=== PATIENT | male | born 1965 | race Caucasian/White ===

== ENCOUNTER 2017-10-28 12:29 | Inpatient (IN) | payer MEDICARE, BC ==
--- NOTE | 2017-10-28 12:31 | EDM.PDOC ---
ED HPI GENERAL MEDICAL PROBLEM - General Chief Complaint: Lower Extremity Injury/Pain Stated Complaint: fell few days ago. LEG SWELLING/OPEN WOUND Time Seen by Provider: 10/28/17 12:31 Source of Information: Reports: Patient, RN, RN Notes Reviewed History Limitations: Reports: No Limitations - History of Present Illness INITIAL COMMENTS - FREE TEXT/NARRATIVE: Arrives from home by POV with c/o pain and swelling to the right leg. This morbidly obese and fell onto his right knee 5 days ago scraped the knee, had a large bruise, and some swelling. He treated the abrasion at home with Neosporin Ointment, and kept the leg elevated as much as possible for the swelling. He was able to remain ambulatory despite the injury, so he states he was not concerned about a bone being broken. Over the last couple of days the pt has become concerned because that swelling of the thigh has significantly increased and it feels tight now. The pain has also increased, but he states that he tolerates it without requiring pain medication. The abrasion has began weeping caterina and some pink fluid. Today the pt states the leg began to feel hot and he worried about developing an infection , so he came to the ER. He denies fever, chills, cough, shortness of breath, or chest pain. He is anticoagulated on warfarin. 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 Treatments Right Leg Pain Score (Numeric/FACES): 4 - Related Data Allergies Allergy/AdvReac Type Severity Reaction Status Date / Time azithromycin [From Zithromax] Allergy Other Verified 10/28/17 12:45 Home Meds: Home Meds Latanoprost 1 drop EYEBOTH BID 04/09/15 [History] Naproxen [Naprosyn] 500 mg PO ASDIRECTED PRN 04/09/15 [History] Omeprazole 20 mg PO BIDM 04/09/15 [History] Warfarin Sodium [Jantoven] 5 mg PO ASDIRECTED 04/09/15 [History] cycloSPORINE [Restasis] 1 drop EYEBOTH DAILY 04/09/15 [History] Acetaminophen [Tylenol] 650 mg PO Q4H PRN #0 tablet 04/15/15 [Rx] Levofloxacin [Levaquin] 500 mg PO Q24H #10 tablet 04/15/15 [Rx] Metoprolol Succinate [Toprol XL] 1 tab PO DAILY 10/28/17 [History] Vit A/C/E AC/Znox/Cupric Oxide [Eye Vitamin-Minerals Tablet] 1 tab PO DAILY [History] Past Medical History Other HEENT History: dry eyes too - Past Surgical History Other Musculoskeletal Surgeries/Procedures:: right leg skin graft Social & Family History - Tobacco Use Smoking Status *Q: Never Smoker Years of Tobacco use: 30 Second Hand Smoke Exposure: Yes - Alcohol Use Days Per Week of Alcohol Use: 0 - Recreational Drug Use Recreational Drug Use: No Review of Systems - Review of Systems Review Of Systems: ROS reveals no pertinent complaints other than HPI. ED EXAM, GENERAL - Physical Exam Exam: See Below Exam Limited By: No Limitations General Appearance: Alert, No Apparent Distress, Obese Head: Atraumatic, Normocephalic Neck: Normal Inspection Respiratory/Chest: No Respiratory Distress, Lungs Clear, No Accessory Muscle Use , Decreased Breath Sounds Cardiovascular: Regular Rate, Rhythm GI/Abdominal: Normal Bowel Sounds, Soft, Non-Tender, Other (benign morbidly obese abdomen) (Male) Exam: Deferred Rectal (Males) Exam: Deferred Extremities: Joint Swelling (right knee), Leg Pain (Rt with the Rt anterior/ medial, and posterior distal 2/3's of the thigh with huge hematoma, tender to palp. w/increased warmth but no erythema), Limited Range of Motion (Rt knee), Increased Warmth (Rt lower extremity), Other (Chronic B/L pitting edema of lower extremities to knees, R>L) Neurological: Alert, Oriented, CN II-XII Intact, Normal Cognition, No Motor/ Sensory Deficits Psychiatric: Normal Affect, Normal Mood Course - Vital Signs Last Recorded V/S: Last Vital Signs Temp 36.7 C 10/28/17 12:57 Pulse 93 10/28/17 13:45 Resp 18 10/28/17 12:57 BP 134/54 L 10/28/17 12:57 Pulse Ox 96 10/28/17 12:57 - Orders/Labs/Meds Labs: Laboratory Tests 10/28/17 10/28/17 10/28/17 Range/Units 13:38 13:38 13:38 WBC 12.1 H (5.0-10.0) 10^3/uL RBC 3.38 L (4.6-6.2) 10^6/uL Hgb 9.4 L D (14.0-18.0) g/dL Hct 30.3 L (40.0-54.0) % MCV 89.6 (80-100) fL MCH 27.8 (27.0-34.0) pg MCHC 31.0 L (33.0-35.0) g/dL Plt Count 265 (150-450) 10^3/uL Neut % (Auto) 81.3 H (42.2-75.2) % Lymph % (Auto) 9.2 L (20.5-50.1) % [place] % (Auto) 8.3 H (2-8) % Eos % (Auto) 1.0 (1.0-3.0) % Baso % (Auto) 0.2 (0.0-1.0) % PT 41.0 H D (9.0-12.0) SEC INR 4.1 H (0.9-1.2) Sodium 139 (135-145) mmol/L Potassium 4.5 (3.6-5.0) mmol/L Chloride 103 (101-111) mmol/L Carbon Dioxide 28.0 (21.0-31.0) mmol/L Anion Gap 12.5 BUN 23 H (7-18) mg/dL Creatinine 0.9 (0.6-1.3) mg/dL Est Cr Clr Drug Dosing 92.89 mL/min Estimated GFR (MDRD) > 60 BUN/Creatinine Ratio 25.55 Glucose 107 H (74-105) mg/dL Calcium 8.8 (8.4-10.2) mg/dl Total Bilirubin 1.4 H (0.2-1.0) mg/dL AST 25 (10-42) IU/L ALT 17 (10-60) IU/L Alkaline Phosphatase 48 (42-121) IU/L C-Reactive Protein (0.0-1.3) mg/dL Total Protein 6.5 L (6.7-8.2) g/dl Albumin 3.5 (3.2-5.5) g/dl Globulin 3.0 Albumin/Globulin Ratio 1.17 10/28/17 Range/Units 13:38 WBC (5.0-10.0) 10^3/uL RBC (4.6-6.2) 10^6/uL Hgb (14.0-18.0) g/dL Hct (40.0-54.0) % MCV (80-100) fL MCH (27.0-34.0) pg MCHC (33.0-35.0) g/dL Plt Count (150-450) 10^3/uL Neut % (Auto) (42.2-75.2) % Lymph % (Auto) (20.5-50.1) % [place] % (Auto) (2-8) % Eos % (Auto) (1.0-3.0) % Baso % (Auto) (0.0-1.0) % PT (9.0-12.0) SEC INR (0.9-1.2) Sodium (135-145) mmol/L Potassium (3.6-5.0) mmol/L Chloride (101-111) mmol/L Carbon Dioxide (21.0-31.0) mmol/L Anion Gap BUN (7-18) mg/dL Creatinine (0.6-1.3) mg/dL Est Cr Clr Drug Dosing mL/min Estimated GFR (MDRD) BUN/Creatinine Ratio Glucose (74-105) mg/dL Calcium (8.4-10.2) mg/dl Total Bilirubin (0.2-1.0) mg/dL AST (10-42) IU/L ALT (10-60) IU/L Alkaline Phosphatase (42-121) IU/L C-Reactive Protein 4.2 H (0.0-1.3) mg/dL Total Protein (6.7-8.2) g/dl Albumin (3.2-5.5) g/dl Globulin Albumin/Globulin Ratio Departure - Departure Time of Disposition: 14:18 (admit to Dr. Begum) Disposition: Refer to Observation Condition: Fair Clinical Impression: Anemia due to acute blood loss, Supratherapeutic international normalized ratio (INR), Chronic anticoagulation, Morbid obesity with BMI of 60.0-69.9, adult Hematoma of right lower extremity Qualifiers: Encounter type: initial encounter Qualified Code(s): S80.11XA - Contusion of right lower leg, initial encounter Abrasion of right knee Qualifiers: Encounter type: initial encounter Qualified Code(s): S80.211A - Abrasion, right knee, initial encounter - Discharge Information Referrals: Kellie Potts PA-C [Primary Care Provider] - Forms: ED Department Discharge
[2017-10-28 14:04] LABS: CHLORIDE,CL 103 mmol/L (101-111); SODIUM,NA 139 mmol/L (135-145)
--- NOTE | 2017-10-28 15:46 | PCM.PRNOTE ---
- Free Text/Narrative Note: ED requested assistance with a difficult IV. Pt resting in room 5 with leg infection. Multiple attempts by ED RN unsuccessful. Discussed procedure with patient. Informed of risks and benefits. Pt appreciates my attempts and knows he is a difficult IV access. Stated it usually takes 7 attempts. Using appropriate technique, per protocol, attempted IV to left hand x2. Both unsuccessful. Pt on anticoagulant so bleeding at insertion site is more than typical. Covered with 2x2s and tape. Will form a hematoma. Third attempt made to right hand after appropriate cleaning and prep. a 22 gauge IV was inserted into the right hand. Not positional with good blood return and flushes well. Covered with tegaderm and tape. Pt pleased with the results especially since he is left handed.
[2017-10-28] MEDS ORDERED: Sodium Chloride 0.9% 10 ML Syringe FLUSH PRN (17:48)
[2017-10-28] MEDS ORDERED: Acetaminophen 325 MG Tab PO PRN (17:49)
[2017-10-28] MEDS: Bacitracin Oint 28.35 GM Tube TOP SCH (20:35)
[2017-10-28] MEDS: Latanoprost 0.005% Ophth Soln 2.5 ML Bottle EYERT SCH (20:36)
[2017-10-28] MEDS: Omeprazole 20 MG Cap.CR PO SCH (20:39)
[2017-10-28] MEDS: Amoxicillin/Clavulanate K 875-125 MG Tab PO SCH (20:39)
[2017-10-28] MEDS: Naproxen 500 MG Tab PO SCH (20:39)
[2017-10-28] MEDS: Lutein/Minerals/Vit A,C & E Tab PO SCH (20:43)
--- NOTE | 2017-10-28 22:19 | HP ---
HISTORY OF PRESENT ILLNESS: Mr. Francis is a 52-year-old male who was admitted for observation to monitor hematoma noted on the right side. One week ago, the patient fell inside his house when he tripped and landed on the right knee and right shoulder. Noticed hematoma on the right thigh with bluish discoloration and the area starting to drain in the skin overlying the right knee. Noticed some pain there, but denies any numbness or tingling. No back pain. No change in bowel habits. No change in urinary habits. No melena, hematochezia, or hematuria. The patient is on Coumadin for 8 years because of superficial thrombophlebitis. He said that last INR check was 1 month ago, it was around therapeutic range, but today, INR was 4.1, and with incidental finding of hemoglobin which is 9.6, we do not have a recent hemoglobin, the last one we had was probably in 2016. Denies any headache, dizziness, chest pain, or shortness of breath. No other signs of bleeding. PAST MEDICAL HISTORY: Morbid obesity, GERD, DVT, and cellulitis. PAST SURGICAL HISTORY: Noncontributory. FAMILY HISTORY: No family history of any clotting disorder. SOCIAL HISTORY: Lives on his own. Chews tobacco. MEDICATIONS: Reviewed. REVIEW OF SYSTEMS: Ten systems reviewed and were negative except for those mentioned above. PHYSICAL EXAMINATION: Vital Signs: Blood pressure 148/60, heart rate of 85 beats per minute, respirations 20 breaths per minute, and oxygen saturation 100%. General Appearance: Awake, in distress. Chest: Symmetric chest expansion. Lungs: Bilateral air entry. Cardiovascular System: Regular rate and rhythm. Abdomen: Soft. Normoactive bowel sounds. Extremities: Area of hematoma on the right thigh with an area that is draining on the skin overlying the right knee with some serosanguineous drainage. LABORATORY DATA: Hemoglobin 9.4, WBC 12.1, and platelets of 265. INR of 4.1. BMP; sodium 139, potassium 4.5, chloride 103, GFR more than 60, and creatinine 0.9. Total b ilirubin 1.4. CRP 4.2. Total protein 6.5. ASSESSMENT AND PLAN: Hematoma in the patient on anticoagulation with marked area. We will also have the girth of the thigh measured. The patient has taken his Coumadin this morning. We will repeat INR tomorrow. Also, repeat CBC with drop in the hemoglobin. The patient otherwise remained hemodynamically stable. He denies any signs of blood loss, such as headache or dizziness. Blood pressure is holding okay. Continue the rest of his medications. Given the mildly elevated CRP and with his break in the skin, we will start him on Augmentin twice a day for 1 week, and the patient is to monitor an intolerance from an antibiotic. We will have the area covered. CODE STATUS: Full code. Continue to follow the patient in medical-surgical bed. [facility] /[id number] ALBERT
[2017-10-28] MEDS: Sodium Chloride 0.9% 10 ML Syringe FLUSH PRN (22:46)
[2017-10-29] MEDS: Amoxicillin/Clavulanate K 875-125 MG Tab PO SCH (10:14)
[2017-10-29] MEDS: Omeprazole 20 MG Cap.CR PO SCH ×2 (10:15→17:18)
[2017-10-29] MEDS: cycloSPORINE Ophth Drops U/D Box of 30 EYEBOTH SCH (10:15)
[2017-10-29] MEDS: Naproxen 500 MG Tab PO SCH ×2 (10:15→20:57)
[2017-10-29] MEDS: Lutein/Minerals/Vit A,C & E Tab PO SCH ×2 (10:15→17:18)
[2017-10-29] MEDS: Bacitracin Oint 28.35 GM Tube TOP SCH ×2 (10:16→10:17)
[2017-10-29] MEDS: Metoprolol Succinate 50 MG Tab.ER PO SCH (12:24)
[2017-10-29] MEDS: Sodium Chloride 0.9% 10 ML Syringe FLUSH PRN (12:25)
[2017-10-29] MEDS: Piperacillin/Tazobactam 3.375 GM in Sodium Chloride 0.9% 100 ML IV SCH ×3 (12:25→23:59)
[2017-10-29] MEDS: Latanoprost 0.005% Ophth Soln 2.5 ML Bottle EYERT SCH (20:58)
[2017-10-30] MEDS: Piperacillin/Tazobactam 3.375 GM in Sodium Chloride 0.9% 100 ML IV SCH ×3 (06:13→17:40)
--- NOTE | 2017-10-30 08:06 | PN ---
DATE: 10/29/2017 SUBJECTIVE: Mr. Francis is a 52-year-old male, is admitted under initially observation because of right thigh hematoma and anemia. Today, his hemoglobin is staying at 9.1. The patient denies any symptoms such as dizziness or other signs of bleeding. We do not have baseline hemoglobin aside from what we had yesterday on admission. He denies any chest pain, shortness of breath. He is able to stand on his lower extremities with some pain. Areas on the right thigh still continue to be oozing and some blister have popped. PHYSICAL EXAMINATION: Vital Signs: Blood pressure 100/54, heart rate of 70 beats per minute, respirations 20 breaths per minute, oxygen saturation 99%, temperature 98.8. General Appearance: The patient is awake, in no distress. Chest: Symmetric chest expansion. Lungs: Bilateral air entry. CVS: Regular rate and rhythm. Abdomen: Soft. Normoactive bowel sounds. Extremities: Hematoma on the right thigh which has receded from the markings, however, seems like the area of oozing and weeping has become more indurated or more prominent. Some tenderness. ASSESSMENT/PLAN: We will put him as inpatient. We will change Augmentin to IV Zosyn. We will continue to monitor hemoglobin. We will get records from [facility] to check his previous hemoglobin. The patient otherwise has nothing significant in terms of hypovolemia. We will continue to dress the affected area daily with Xeroform. His INR is still supratherapeutic. Yesterday, he took it prior to being admitted and none given during the admission. Today it is 4.2. Continue holding warfarin, and we will recheck INR daily. Also iron studies were sent. We will follow the patient under medical- surgical bed. [facility] /[id number]
[2017-10-30] MEDS: cycloSPORINE Ophth Drops U/D Box of 30 EYEBOTH SCH (08:59)
[2017-10-30] MEDS: Omeprazole 20 MG Cap.CR PO SCH ×2 (08:59→17:40)
[2017-10-30] MEDS: Lutein/Minerals/Vit A,C & E Tab PO SCH ×2 (08:59→17:40)
[2017-10-30] MEDS: Naproxen 500 MG Tab PO SCH ×2 (08:59→20:51)
[2017-10-30] MEDS: Metoprolol Succinate 50 MG Tab.ER PO SCH (12:38)
[2017-10-30] MEDS: Latanoprost 0.005% Ophth Soln 2.5 ML Bottle EYERT SCH (20:51)
[2017-10-30] MEDS: Meropenem 500 MG in Sodium Chloride 0.9% 100 ML IV SCH (22:28)
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
[2017-10-31] MEDS: Meropenem 500 MG in Sodium Chloride 0.9% 100 ML IV SCH (05:32)
[2017-10-31] MEDS ORDERED: Heparin Sodium 5,000 Units/ML Vial SUBCUT ONE (06:00)
[2017-10-31 07:53] VITALS: BP 127/62
[2017-10-31] MEDS: Lutein/Minerals/Vit A,C & E Tab PO SCH (08:06)
[2017-10-31] MEDS: Naproxen 500 MG Tab PO SCH (08:06)
[2017-10-31] MEDS: cycloSPORINE Ophth Drops U/D Box of 30 EYEBOTH SCH (08:06)
[2017-10-31] MEDS: Omeprazole 20 MG Cap.CR PO SCH (08:06)
--- NOTE | 2017-12-08 07:21 | PN ---
DATE: 10/30/2017 HISTORY: David Francis is a 52-year-old male who fell at home on 10/22. He tripped and sustained an injury to the anterior medial aspect of the right lower leg, slightly below the knee in the pretibial area. He also sustained a contusion to the right lower back, where he also has a large bruise. He stated that 2 days after the fall, he started to notice increased redness and swelling across the right anteromedial knee. He presented to the emergency room on 10/29 because of increased pain and swelling. He initially treated the abrasion at home with Neosporin ointment, kept the leg elevated as much as possible, but the pain increased and the abrasion started to weep. He came to the emergency room, was evaluated, and was admitted. He is particularly concerned because many years ago, he had a previous injury to that leg, which went on to develop significant infection requiring extensive debridements. At the time of admission to the ER, he was found to be anemic with a hemoglobin of 9 and hematocrit of 29, and this was felt to be related to his blood losses due to the extensive hematoma. His INR was somewhat elevated at the time of admission at 4.1. Followup lab studies showed his iron levels to be low at 32. B12 and folate levels were within normal limits. It is possible that some of this anemia is [id number]. Today other labs included a sed rate which was 72 mm/h and a CRP which was elevated at 7.3. Repeat CBC today showed a white count of 10,000 with hemoglobin and hematocrit of 9 and 29 and normal platelets. We obtained a CT scan of the right lower extremity without contrast. There were no bony abnormalities seen. There was a lobulated dense fluid collection in the pretibial region, measuring approximately 13.9 x 11.6 x 4.7 cm. This represented a pretibial hematoma. A superimposed infected fluid collection could not be excluded. There was no soft tissue gas seen. We will continue the present management, which includes elevation of the leg. He continues on Zosyn 3.375 g IV every 6 hours, and meropenem was added today to broaden the coverage. He will receive 500 mg IV every 8 hours. He was also started on vancomycin 2 g IV every 8 hours. He is on subcu heparin for VTE prophylaxis as well. PHYSICAL EXAMINATION: Vital Signs: Blood pressure was 115/62, pulse 73, respiratory rate 20, oxygen saturation 97% on room air, temperature 98.3, and he had been afebrile since admission. HEENT: Unremarkable. ENT was clear. Chest: Showed clear but diminished breath sounds. Extremities: Examination of the leg showed a large area of bruising and swelling on the anterior lateral aspect of the right leg and knee. We have a number of issues. He has very poor venous access and may need to have a central line placed. This is further complicated by his super morbid obesity. We are not sure that this infection will not need debridement, and we do not have a surgical consult available. It may also be necessary to involve Infectious Disease in this process as well. Because of these issues, we called [facility] in [place] and spoke to the hospitalist on-call, Dr. Ybarra. He accepted Mr. Francis for transfer, and we will arrange to have him transferred by ground ambulance in the morning, and they will leave between 7:30 and 8:00. Mr. Francis was in agreement with this plan as he is understandably concerned given his previous history of infection with the need for extensive debridement of that leg. IMPRESSION: Status post fall, now with large hematoma involving the right leg. Cannot exclude the possibility of an underlying collection and infection. PLAN: For transfer in the morning. [facility] /[id number]
== END 2017-10-31 09:15 | DRG 605 ==
LOC: DL.ED 12:29 → UNDOADMIN 14:59 → DL.MS 14:59 → INTOOBSV 17:03 → OBSVTOIN 10-29 10:31
PROVIDERS: ADMIT Internal Medicine; ATTEND Internal Medicine
DX: S80.11XA Contusion of right lower leg, initial encounter (principal); Z68.45 Body mass index [BMI] 70 or greater, adult; S80.211A Abrasion, right knee, initial encounter; D62 Acute posthemorrhagic anemia; R79.1 Abnormal coagulation profile; W19.XXXA Unspecified fall, initial encounter; Z68.44 Body mass index [BMI] 60.0-69.9, adult; Z88.1 Allergy status to other antibiotic agents; E66.01 Morbid (severe) obesity due to excess calories; Z86.718 Personal history of other venous thrombosis and embolism; Z87.891 Personal history of nicotine dependence; Z79.01 Long term (current) use of anticoagulants; H40.9 Unspecified glaucoma; K21.9 Gastro-esophageal reflux disease without esophagitis; D50.9 Iron deficiency anemia, unspecified; F17.200 Nicotine dependence, unspecified, uncomplicated; Z79.899 Other long term (current) drug therapy
CPT/HCPCS: 36410; 36415 ×2; 80053; 82550; 82607; 82728; 82746; 83540; 83550; 85025 ×2; 85610 ×2; 86140; 87070; 87205; 99285; A9270 ×10; J7050; 73700-RT; 83605; 85027; 85651; 99283; G0378; J1644; J2185; J2543; J3370; J7040

== ENCOUNTER 2017-11-22 09:50 | Observation (INO) | payer MEDICARE, BC ==
[2017-11-22 13:38] LABS: ANION GAP 11.2; CHLORIDE,CL 101 mmol/L (101-111); SODIUM,NA 137 mmol/L (135-145)
[2017-11-22] MEDS ORDERED: Acetaminophen 325 MG Tab PO PRN (17:28)
[2017-11-22] MEDS ORDERED: diphenhydrAMINE 25 MG Tab PO PRN (17:28)
[2017-11-22] MEDS ORDERED: Sodium Chloride 0.9% 10 ML Syringe FLUSH PRN (17:30)
--- NOTE | 2017-11-22 17:40 | PCM.HP ---
H&P History of Present Illness - General Date of Service: 11/22/17 Admit Problem/Dx: Admission Diagnosis/Problem Admission Diagnosis/Problem Hematoma Source of Information: Patient - History of Present Illness Initial Comments - Free Text/Narative: 52 yo with h/o gerd, morbid obesity, DVT on anticoagulation recently had r. knee hematoma after fall concern was cellulitis, infected hematoma - tx. to [facility] - tx. with IV ABx - discharged on Doxy finished Abx resumed coumadin wound was improving with Xeroform dressing on the night of 11/21 developed bleeding from the wound came to ER INR found to be elevated no fever, no chills no redness - Related Data Allergies/Adverse Reactions: Allergies Allergy/AdvReac Type Severity Reaction Status Date / Time azithromycin [From Zithromax] Allergy Other Verified 10/28/17 16:41 Home Medications: Home Meds Latanoprost 1 drop EYERT BEDTIME 04/09/15 [History] Naproxen [Naprosyn] 500 mg PO BID 04/09/15 [History] Omeprazole 20 mg PO BIDM 04/09/15 [History] Warfarin Sodium [Jantoven] 5 mg PO .MONFR 04/09/15 [History] cycloSPORINE [Restasis] 1 drop EYEBOTH DAILY 04/09/15 [History] Acetaminophen [Tylenol] 650 mg PO Q4H PRN #0 tablet 04/15/15 [Rx] Metoprolol Succinate [Toprol XL] 50 mg PO WITHLUNCH 10/28/17 [History] Vit A/C/E AC/Znox/Cupric Oxide [Eye Vitamin-Minerals Tablet] 1 tab PO BIDMEALS 10/28/17 [History] Warfarin Sodium [Jantoven] 7.5 mg PO .TUWEDTHSASU 10/28/17 [History] Calcium Polycarbophil [Fibercon] 2 tab PO BID 11/22/17 [History] diphenhydrAMINE [Benadryl] 1 tab PO BEDTIME PRN 11/22/17 [History] Past Medical History HEENT History: Reports: Glaucoma, Impaired Vision Other HEENT History: dry eyes Cardiovascular History: Reports: Hypertension Respiratory History: Reports: Pneumonia, Recurrent Musculoskeletal History: Reports: Arthritis, Fracture Neurological History: Reports: Concussion Endocrine/Metabolic History: Reports: Obesity/BMI 30+ Hematologic History: Reports: Blood Transfusion(s) Dermatologic History: Reports: Cellulitis - Infectious Disease History Infectious Disease History: Reports: Chicken Pox, MRSA - Past Surgical History Head Surgeries/Procedures: Reports: None HEENT Surgical History: Reports: None Cardiovascular Surgical History: Reports: None Respiratory Surgical History: Reports: None Endocrine Surgical History: Reports: None Neurological Surgical History: Reports: None Musculoskeletal Surgical History: Reports: Other (See Below) Other Musculoskeletal Surgeries/Procedures:: right keys skin graft Dermatological Surgical History: Reports: Skin Graft Social & Family History - Family History Family Medical History: Noncontributory - Tobacco Use Smoking Status *Q: Never Smoker Years of Tobacco use: 30 Packs/Tins Daily: 1 Second Hand Smoke Exposure: No - Caffeine Use Caffeine Use: Reports: None - Alcohol Use Days Per Week of Alcohol Use: 0 - Recreational Drug Use Recreational Drug Use: No H&P Review of Systems - Review of Systems: Review Of Systems: See Below General: Denies: Fever, Chills Pulmonary: Denies: Shortness of Breath Cardiovascular: Denies: Chest Pain Gastrointestinal: Denies: Abdominal Pain Musculoskeletal: Reports: Other (r. knee wound bleeding) Psychiatric: Denies: Confusion Exam - Exam Exam: See Below - Vital Signs Vital Signs: Last Vital Signs Temp 36.4 C 11/22/17 15:58 Pulse 65 11/22/17 15:58 Resp 22 H 11/22/17 15:58 BP 130/46 L 11/22/17 15:58 Pulse Ox 97 11/22/17 15:58 Weight: 219.992 kg - Exam General: Alert, Oriented Neck: Supple Lungs: Clear to Auscultation, Normal Respiratory Effort Cardiovascular: Regular Rate, Regular Rhythm GI/Abdominal Exam: Other (morbidly obese) Back Exam: Normal Inspection Extremities: No Pedal Edema, Other (r. knee wound with black eschar, no redness) - Patient Data Result Diagrams: 11/22/17 13:11 11/22/17 13:11 *Q Meaningful Use (ADM) - VTE *Q VTE Criteria *Q: - Stroke *Q Stroke Criteria *Q: - AMI *Q AMI Criteria *Q: - Problem List (1) Abrasion of right knee SNOMED Code(s): 104470618 ICD Code: S80.211A - ABRASION, RIGHT KNEE, INITIAL ENCOUNTER Status: Acute Current Visit: No Onset Date: ~10/22/17 (2) Elevated INR SNOMED Code(s): 231354967 ICD Code: R79.1 - ABNORMAL COAGULATION PROFILE Status: Acute Current Visit: No Onset Date: ~10/28/17 (3) Hematoma of right lower extremity SNOMED Code(s): 480541695 ICD Code: S80.11XA - CONTUSION OF RIGHT LOWER LEG, INITIAL ENCOUNTER Status : Acute Priority: High Current Visit: No Onset Date: ~10/28/17 Problem List Initiated/Reviewed/Updated: Yes Orders Last 24hrs: Active Orders 24 hr Category Date Time Status Patient Status [ADT] Routine ADT 11/22/17 17:30 Ordered Antiembolic Devices [RC] PER UNIT ROUTINE Care 11/22/17 17:32 Ordered Oxygen Therapy [RC] PRN Care 11/22/17 17:30 Ordered Peripheral IV Care [RC] . DIRECTED Care 11/22/17 17:32 Ordered Up With Assistance [RC] ASDIRECTED Care 11/22/17 17:30 Ordered VTE/DVT Education [RC] PER UNIT ROUTINE Care 11/22/17 17:30 Ordered Vital Signs [RC] Q4H Care 11/22/17 17:30 Ordered Wound Care [RC] DAILY Care 11/22/17 17:33 Ordered Regular Diet [DIET] Diet 11/22/17 Breakfast Ordered CBC WITH AUTO DIFF [HEME] DAILY Lab 11/22/17 17:30 Ordered INR,PT,PROTHROMBIN TIME [COAG] DAILY Lab 11/22/17 17:30 Ordered Acetaminophen [Tylenol] Med 11/22/17 17:28 Ordered 650 mg PO Q4H PRN Calcium Polycarbophil [Fibercon] Med 11/22/17 21:00 Ordered 2 tab PO BID Latanoprost [Xalatan 0.005% Ophth Soln] Med 11/22/17 21:00 Ordered 1 drop EYERT BEDTIME Metoprolol Succinate [Toprol XL] Med 11/23/17 12:00 Ordered 50 mg PO WITHLUNCH Naproxen [Naprosyn] Med 11/22/17 21:00 Ordered 500 mg PO BID Omeprazole Med 11/22/17 18:00 Ordered 20 mg PO BIDM Sodium Chloride 0.9% [Saline Flush] Med 11/22/17 17:30 Ordered 10 ml FLUSH ASDIRECTED PRN cycloSPORINE [Restasis] Med 11/23/17 09:00 Ordered 1 drop EYEBOTH DAILY diphenhydrAMINE [Benadryl] Med 11/22/17 17:28 Ordered 1 tab PO BEDTIME PRN Peripheral IV Insertion Adult [OM.PC] Routine Oth 11/22/17 17:30 Ordered Saline Lock Insert [OM.PC] Routine Oth 11/22/17 17:30 Ordered Sequential Compression Device [OM.PC] Per Unit Routine Oth 11/22/17 17:31 Ordered Resuscitation Status Routine Resus Stat 11/22/17 17:30 Ordered Medication Orders Acetaminophen (Tylenol) 650 mg PO Q4H PRN PRN Reason: Pain (mild 1-3) Calcium Polycarbophil (Fibercon) mg PO BID [facility] Cyclosporine (Restasis) each EYEBOTH DAILY [facility] Diphenhydramine HCl (Benadryl) mg PO BEDTIME PRN PRN Reason: sleep and allergies Latanoprost (Xalatan 0.005% Ophth Soln) ml EYERT BEDTIME [facility] Metoprolol Succinate (Toprol Xl) 50 mg PO WITHLUNCH [facility] Naproxen (Naprosyn) 500 mg PO BID [facility] Omeprazole (Omeprazole) 20 mg PO BIDM [facility] Sodium Chloride (Saline Flush) 10 ml FLUSH ASDIRECTED PRN PRN Reason: Keep Vein Open Assessment/Plan Comment:: 52 yo with h/o gerd, morbid obesity, DVT on anticoagulation recently had r. knee hematoma after fall concern was cellulitis, infected hematoma - tx. to [facility] - tx. with IV ABx - discharged on Doxy finished Abx resumed coumadin wound was improving with Xeroform dressing on the night of 11/21 developed bleeding from the wound came to ER INR found to be elevated 1. R knee hematoma with bleeding no associated cellulitis will treat with compression wrap stop coumadin follow hgb and symptoms 2. h/o DVT hold coumadin with the bleeding ambulate, scd-s 3. GERD cont PPI 4. HTN treat with metoprolol
[2017-11-22] MEDS: Omeprazole 20 MG Cap.CR PO SCH (18:19)
[2017-11-22] MEDS: Naproxen 500 MG Tab PO SCH (20:14)
[2017-11-22] MEDS: Calcium Polycarbophil 625 MG Tab PO SCH (20:14)
--- NOTE | 2017-11-22 20:43 | EDM.PDOC ---
Scribed by Rimma Ball 11/22/172042 for Izabela Whitfield NP ED HPI GENERAL MEDICAL PROBLEM - General Chief Complaint: Wound Recheck Stated Complaint: WOUND BROKE OPEN Time Seen by Provider: 11/22/17 12:30 Source of Information: Reports: Patient, RN, RN Notes Reviewed History Limitations: Reports: No Limitations - History of Present Illness INITIAL COMMENTS - FREE TEXT/NARRATIVE: Patient fell around 10/21/17. He came into the ER and was admitted. He was transferred to [place]. Patient states wound opened when in the shower last night. Patient states he is on blood thinners. States he has bled through his pants, ABDs and a wash cloth. Denies falling or re-injury. Denies fever, chills , nausea, vomiting or diarrhea. Onset Date: 11/21/17 Location: Reports: Lower Extremity, Left Quality: Reports: Ache Severity: Moderate Improves with: Reports: None Worsens with: Reports: None Associated Symptoms: Reports: No Other Symptoms - Related Data Allergies Allergy/AdvReac Type Severity Reaction Status Date / Time azithromycin [From Zithromax] Allergy Intermediate Other Verified 11/22/17 19:19 Home Meds: Home Meds Latanoprost 1 drop EYERT BEDTIME 04/09/15 [History] Naproxen [Naprosyn] 500 mg PO BID 04/09/15 [History] Omeprazole 20 mg PO BIDM 04/09/15 [History] Warfarin Sodium [Jantoven] 5 mg PO .MONFR 04/09/15 [History] cycloSPORINE [Restasis] 1 drop EYEBOTH BID 04/09/15 [History] Acetaminophen [Tylenol] 650 mg PO Q4H PRN #0 tablet 04/15/15 [Rx] Metoprolol Succinate [Toprol XL] 50 mg PO WITHLUNCH 10/28/17 [History] Vit A/C/E AC/Znox/Cupric Oxide [Eye Vitamin-Minerals Tablet] 1 tab PO BIDMEALS 10/28/17 [History] Warfarin Sodium [Jantoven] 7.5 mg PO .TUWEDTHSASU 10/28/17 [History] Calcium Polycarbophil [Fibercon] 2 tab PO BID 11/22/17 [History] diphenhydrAMINE [Benadryl] 50 mg PO BEDTIME PRN 11/22/17 [History] Past Medical History HEENT History: Reports: Glaucoma, Impaired Vision Other HEENT History: dry eyes Cardiovascular History: Reports: Hypertension Respiratory History: Reports: Pneumonia, Recurrent Musculoskeletal History: Reports: Arthritis, Fracture Neurological History: Reports: Concussion Endocrine/Metabolic History: Reports: Obesity/BMI 30+ Hematologic History: Reports: Blood Transfusion(s) Dermatologic History: Reports: Cellulitis - Infectious Disease History Infectious Disease History: Reports: Chicken Pox, MRSA - Past Surgical History Head Surgeries/Procedures: Reports: None HEENT Surgical History: Reports: None Cardiovascular Surgical History: Reports: None Respiratory Surgical History: Reports: None Endocrine Surgical History: Reports: None Neurological Surgical History: Reports: None Musculoskeletal Surgical History: Reports: Other (See Below) Other Musculoskeletal Surgeries/Procedures:: right keys skin graft Dermatological Surgical History: Reports: Skin Graft Social & Family History - Family History Family Medical History: Noncontributory - Tobacco Use Smoking Status *Q: Never Smoker Years of Tobacco use: 30 Packs/Tins Daily: 1 Second Hand Smoke Exposure: No - Caffeine Use Caffeine Use: Reports: None - Alcohol Use Days Per Week of Alcohol Use: 0 - Recreational Drug Use Recreational Drug Use: No ED ROS GENERAL - Review of Systems Review Of Systems: ROS reveals no pertinent complaints other than HPI. ED EXAM, SKIN/RASH Exam: See Below Exam Limited By: No Limitations General Appearance: Obese (morbid) Eye Exam: Bilateral Eye: Normal Inspection Ears: Normal External Exam, Normal Canal, Hearing Grossly Normal, Normal TMs Nose: Normal Inspection, Normal Mucosa, No Blood Throat/Mouth: Normal Inspection, Normal Lips, Normal Teeth, Normal Gums, Normal Oropharynx, Normal Voice, No Airway Compromise Head: Atraumatic, Normocephalic Neck: Normal Inspection, Supple, Non-Tender, Full Range of Motion Respiratory/Chest: Crackles (bases bilateral) Cardiovascular: Normal Peripheral Pulses, Regular Rate, Rhythm, No Edema, No Gallop, No JVD, No Murmur, No Rub GI/Abdominal: Other (distended. Obese.) (Male) Exam: Deferred Rectal (Males) Exam: Deferred Back Exam: Decreased Range of Motion Extremities: Other (decreased range of motion in all extremities.) Neurological: Alert, Oriented, CN II-XII Intact, Normal Cognition, Normal Gait, Normal Reflexes, No Motor/Sensory Deficits Psychiatric: Normal Affect, Normal Mood Skin: Warm, Dry, Intact Lymphatic: No Adenopathy Course - Vital Signs Last Recorded V/S: Last Vital Signs Temp 98.4 F 11/22/17 17:30 Pulse 69 11/22/17 17:30 Resp 20 11/22/17 17:30 BP 132/59 L 11/22/17 17:30 Pulse Ox 100 11/22/17 17:30 - Orders/Labs/Meds Orders: Medication Orders Acetaminophen (Tylenol) 650 mg PO Q4H PRN PRN Reason: Pain (mild 1-3) Calcium Polycarbophil (Fibercon) 0 mg PO BID [facility] Last Admin: 11/22/17 20:14 Dose: 1,250 mg Cyclosporine (Restasis) 0 each EYEBOTH DAILY [facility] Diphenhydramine HCl (Benadryl) 25 mg PO BEDTIME PRN PRN Reason: sleep and allergies Latanoprost (Xalatan 0.005% Ophth Soln) 0 ml EYERT BEDTIME [facility] Last Admin: 11/22/17 20:14 Dose: 1 drop Metoprolol Succinate (Toprol Xl) 50 mg PO WITHLUNCH [facility] Naproxen (Naprosyn) 500 mg PO BID [facility] Last Admin: 11/22/17 20:14 Dose: 500 mg Omeprazole (Omeprazole) 20 mg PO BIDM [facility] Last Admin: 11/22/17 18:19 Dose: 20 mg Sodium Chloride (Saline Flush) 10 ml FLUSH ASDIRECTED PRN PRN Reason: Keep Vein Open Labs: Laboratory Tests 11/22/17 11/22/17 11/22/17 Range/Units 13:11 13:11 13:11 WBC 9.8 (5.0-10.0) 10^3/uL RBC 4.33 L (4.6-6.2) 10^6/uL Hgb 11.7 L D (14.0-18.0) g/dL Hct 38.7 L (40.0-54.0) % MCV 89.4 (80-100) fL MCH 27.0 (27.0-34.0) pg MCHC 30.2 L (33.0-35.0) g/dL Plt Count 263 (150-450) 10^3/uL Neut % (Auto) 82.7 H (42.2-75.2) % Lymph % (Auto) 9.4 L (20.5-50.1) % [place] % (Auto) 6.1 (2-8) % Eos % (Auto) 1.5 (1.0-3.0) % Baso % (Auto) 0.3 (0.0-1.0) % PT 29.9 H D (9.0-12.0) SEC INR 3.0 H (0.9-1.2) Sodium 137 (135-145) mmol/L Potassium 4.2 (3.6-5.0) mmol/L Chloride 101 (101-111) mmol/L Carbon Dioxide 29.0 (21.0-31.0) mmol/L Anion Gap 11.2 BUN 15 (7-18) mg/dL Creatinine 0.9 (0.6-1.3) mg/dL Est Cr Clr Drug Dosing 92.89 mL/min Estimated GFR (MDRD) > 60 BUN/Creatinine Ratio 16.66 Glucose 98 (74-105) mg/dL Calcium 8.7 (8.4-10.2) mg/dl Total Bilirubin 0.8 (0.2-1.0) mg/dL AST 26 (10-42) IU/L ALT 15 (10-60) IU/L Alkaline Phosphatase 50 (42-121) IU/L Total Protein 7.1 (6.7-8.2) g/dl Albumin 3.7 (3.2-5.5) g/dl Globulin 3.4 Albumin/Globulin Ratio 1.09 Meds: Medications Generic Name Dose Route Start Last Admin Trade Name Freq PRN Reason Stop Dose Admin Acetaminophen 650 mg 11/22/17 17:28 Tylenol PO Q4H PRN Pain (mild 1-3) Calcium Polycarbophil 0 mg 11/22/17 21:00 11/22/17 20:14 Fibercon PO 1,250 mg BID [facility]ERNANDO Administration Cyclosporine 0 each 11/23/17 09:00 Restasis EYEBOTH DAILY [facility] Diphenhydramine HCl 25 mg 11/22/17 17:28 Benadryl PO BEDTIME PRN sleep and allergies Latanoprost 0 ml 11/22/17 21:00 11/22/17 20:14 Xalatan 0.005% Ophth Soln EYERT 1 drop BEDTIME FERNANDO Administration Metoprolol Succinate 50 mg 11/23/17 12:00 Toprol Xl PO WITHLUNCH [facility]ER[facility]O Naproxen 500 mg 11/22/17 21:00 11/22/17 20:14 Naprosyn PO 500 mg BID FERNANDO Administration Omeprazole 20 mg 11/22/17 18:00 11/22/17 18:19 Omeprazole PO 20 mg BIDM FERNANDO Administration Sodium Chloride 10 ml 11/22/17 17:30 Saline Flush FLUSH ASDIRECTED PRN Keep Vein Open Departure - Departure Time of Disposition: 16:55 Disposition: Admitted As Inpatient 66 Clinical Impression: Morbid obesity with BMI of 70 and over, adult Hematoma of right lower extremity Qualifiers: Encounter type: sequela Qualified Code(s): S80.11XS - Contusion of right lower leg, sequela - Discharge Information I have read and agree with the documentation that has been completed regarding this visit. By signing this record, I attest that the documentation was completed in my physical presence and is an accurate record of the encounter.
[2017-11-22] MEDS ORDERED: Latanoprost 0.005% Ophth Soln 2.5 ML Bottle EYERT SCH (21:00)
[2017-11-23] MEDS ORDERED: cycloSPORINE Ophth Drops U/D Box of 30 EYEBOTH SCH (09:00)
[2017-11-23] MEDS: Naproxen 500 MG Tab PO SCH (09:35)
[2017-11-23] MEDS: Omeprazole 20 MG Cap.CR PO SCH (09:37)
[2017-11-23] MEDS: Calcium Polycarbophil 625 MG Tab PO SCH (09:41)
--- NOTE | 2017-11-23 10:13 | PCM.DCSUM1 ---
Discharge Summary - Hospital Course Free Text/Narrative:: 52 yo with h/o gerd, morbid obesity, DVT on anticoagulation recently had r. knee hematoma after fall concern was cellulitis, infected hematoma - tx. to [facility] - tx. with IV ABx - discharged on Doxy finished Abx resumed coumadin wound was improving with Xeroform dressing on the night of 11/21 developed bleeding from the wound came to ER INR found to be elevated 1. R knee hematoma with bleeding no associated cellulitis will treat with compression wrap - discharge home with home care to help with wound care stop coumadin follow hgb and symptoms in a few days with PMD - consider resuming coumadin in 1 -2 weeks acute blood loss anemia from bleeding Follow hemoglobin periodically 2. h/o DVT hold coumadin with the bleeding ambulate 3. GERD cont PPI 4. HTN treat with metoprolol - Discharge Data Discharge Date: 11/23/17 Discharge Disposition: Home, Self-Care 01 Condition: Stable - Discharge Diagnosis/Problem(s) (1) Abrasion of right knee SNOMED Code(s): 682581613 ICD Code: S80.211A - ABRASION, RIGHT KNEE, INITIAL ENCOUNTER Status: Acute Current Visit: No Onset Date: ~10/22/17 (2) Elevated INR SNOMED Code(s): 371285221 ICD Code: R79.1 - ABNORMAL COAGULATION PROFILE Status: Acute Current Visit: No Onset Date: ~10/28/17 (3) Hematoma of right lower extremity SNOMED Code(s): 181358685 ICD Code: S80.11XA - CONTUSION OF RIGHT LOWER LEG, INITIAL ENCOUNTER Status : Acute Priority: High Current Visit: Yes Onset Date: ~10/28/17 Qualifiers: Encounter type: sequela Qualified Code(s): S80.11XS - Contusion of right lower leg, sequela - Patient Instructions Diet: Weight Loss Diet Activity: As Tolerated - Discharge Plan Home Medications: Home Meds Latanoprost 1 drop EYERT BEDTIME 04/09/15 [History] Naproxen [Naprosyn] 500 mg PO BID 04/09/15 [History] Omeprazole 20 mg PO BIDM 04/09/15 [History] cycloSPORINE [Restasis] 1 drop EYEBOTH BID 04/09/15 [History] Acetaminophen [Tylenol] 650 mg PO Q4H PRN #0 tablet 04/15/15 [Rx] Metoprolol Succinate [Toprol XL] 50 mg PO WITHLUNCH 10/28/17 [History] Vit A/C/E AC/Znox/Cupric Oxide [Eye Vitamin-Minerals Tablet] 1 tab PO BIDMEALS 10/28/17 [History] Calcium Polycarbophil [Fibercon] 2 tab PO BID 11/22/17 [History] diphenhydrAMINE [Benadryl] 50 mg PO BEDTIME PRN 11/22/17 [History] Referrals: Dionne Fermni, [employer] [Ordering Only Provider] - (in 2-3 days) - Discharge Summary/Plan Comment DC Time >30 min.: Yes (home care DOCUMENTATION) - General Info Date of Service: 11/23/17 - Review of Systems General: Denies: Fever Pulmonary: Denies: Shortness of Breath Cardiovascular: Denies: Chest Pain Gastrointestinal: Denies: Abdominal Pain Skin: Reports: Other (no further bleeding) - Patient Data Vitals - Most Recent: Last Vital Signs Temp 36.7 C 11/23/17 03:03 Pulse 66 11/23/17 03:03 Resp 16 11/23/17 03:03 BP 113/61 11/23/17 03:03 Pulse Ox 99 11/23/17 03:03 Weight - Most Recent: 219.539 kg I&O - Last 24 hours: Intake & Output 11/22/17 11/23/17 11/23/17 22:59 06:59 14:59 Intake Total 240 400 Output Total 1000 Balance -760 400 Lab Results - Last 24 hrs: Laboratory Results - last 24 hr 11/23/17 11/23/17 Range/Units 06:44 06:44 WBC 7.3 (5.0-10.0) 10^3/uL RBC 3.93 L (4.6-6.2) 10^6/uL Hgb 10.7 L (14.0-18.0) g/dL Hct 35.5 L (40.0-54.0) % MCV 90.3 (80-100) fL MCH 27.2 (27.0-34.0) pg MCHC 30.1 L (33.0-35.0) g/dL Plt Count 236 (150-450) 10^3/uL Neut % (Auto) 66.9 (42.2-75.2) % Lymph % (Auto) 19.6 L (20.5-50.1) % [place] % (Auto) 10.6 H (2-8) % Eos % (Auto) 2.6 (1.0-3.0) % Baso % (Auto) 0.3 (0.0-1.0) % PT 24.1 H (9.0-12.0) SEC INR 2.4 H (0.9-1.2) Med Orders - Current: Current Medications Acetaminophen (Tylenol) 650 mg PO Q4H PRN PRN Reason: Pain (mild 1-3) Last Admin: 11/23/17 00:01 Dose: 650 mg Calcium Polycarbophil (Fibercon) 0 mg PO BID [facility] Last Admin: 11/23/17 09:41 Dose: 1,250 mg Cyclosporine (Restasis) 0 each EYEBOTH DAILY [facility] Last Admin: 11/23/17 09:37 Dose: Not Given Diphenhydramine HCl (Benadryl) 25 mg PO BEDTIME PRN PRN Reason: sleep and allergies Last Admin: 11/23/17 00:06 Dose: 25 mg Latanoprost (Xalatan 0.005% Ophth Soln) 0 ml EYERT BEDTIME [facility] Last Admin: 11/22/17 20:14 Dose: 1 drop Metoprolol Succinate (Toprol Xl) 50 mg PO WITHLUNCH [facility] Naproxen (Naprosyn) 500 mg PO BID [facility] Last Admin: 11/23/17 09:35 Dose: 500 mg Omeprazole (Omeprazole) 20 mg PO BIDM [facility] Last Admin: 11/23/17 09:37 Dose: 20 mg Sodium Chloride (Saline Flush) 10 ml FLUSH ASDIRECTED PRN PRN Reason: Keep Vein Open - Exam General: Reports: Alert, Oriented Lungs: Reports: Clear to Auscultation Cardiovascular: Reports: Regular Rate, Regular Rhythm GI/Abdominal Exam: Other (morbidly obese) Extremities: No Pedal Edema Skin: Reports: Other (right knee wound with no active bleeding) *Q Meaningful Use (DIS) - VTE *Q VTE Criteria *Q: - Stroke *Q Stroke Criteria *Q: - AMI *Q AMI Criteria *Q:
[2017-11-23] MEDS ORDERED: Metoprolol Succinate 50 MG Tab.ER PO SCH (12:00)
[2017-11-23 12:22] VITALS: BP 143/65
== END 2017-11-23 13:15 | disposition home or self-care (01) ==
LOC: DL.ED 09:50 → DL.MS 16:50
PROVIDERS: ADMIT Internal Medicine; ATTEND Internal Medicine
DX: M25.061 Hemarthrosis, right knee (principal); S80.01XA Contusion of right knee, initial encounter; D62 Acute posthemorrhagic anemia; K21.9 Gastro-esophageal reflux disease without esophagitis; I10 Essential (primary) hypertension; R79.1 Abnormal coagulation profile; M19.90 Unspecified osteoarthritis, unspecified site; E66.01 Morbid (severe) obesity due to excess calories; Z68.45 Body mass index [BMI] 70 or greater, adult; Z86.718 Personal history of other venous thrombosis and embolism; Z86.14 Personal history of Methicillin resistant Staphylococcus aureus infection; Z79.01 Long term (current) use of anticoagulants; Z79.1 Long term (current) use of non-steroidal anti-inflammatories (NSAID); Z79.899 Other long term (current) drug therapy; Z88.1 Allergy status to other antibiotic agents; Z98.890 Other specified postprocedural states
CPT/HCPCS: 36415; 80053; 85025; 85610; 99284; A9270; 99217; 99218; G0378

== ENCOUNTER 2017-11-28 11:07 | Emergency (ER) | payer MEDICARE, BC ==
[2017-11-28 11:25] VITALS: BP 130/88
[2017-11-28 12:13] LABS: ANION GAP 12.9; CHLORIDE,CL 101 mmol/L (101-111); SODIUM,NA 135 mmol/L (135-145)
--- NOTE | 2017-11-28 13:06 | EDM.PDOC ---
ED HPI GENERAL MEDICAL PROBLEM - General Chief Complaint: Genitourinary Problem Stated Complaint: PEEING URINE/BLOOD Time Seen by Provider: 11/28/17 11:30 Source of Information: Reports: Patient, RN, RN Notes Reviewed History Limitations: Reports: No Limitations - History of Present Illness INITIAL COMMENTS - FREE TEXT/NARRATIVE: Patient to ER with complaint of dysuria and blood in urine. Pt denies fever or chills, or pain at this time. He denies N/V/D. He states he had dysuria one time with burning at the shaft and tip of the penis with urination. That has resolved. Onset: Sudden Quality: Reports: Ache Severity: Moderate Improves with: Reports: None Worsens with: Reports: None Associated Symptoms: Reports: No Other Symptoms - Related Data Allergies Allergy/AdvReac Type Severity Reaction Status Date / Time azithromycin [From Zithromax] Allergy Intermediate Other Verified 11/28/17 11:22 Home Meds: Home Meds Latanoprost 1 drop EYERT BEDTIME 04/09/15 [History] Naproxen [Naprosyn] 500 mg PO BID 04/09/15 [History] Omeprazole 20 mg PO BIDM 04/09/15 [History] cycloSPORINE [Restasis] 1 drop EYEBOTH BID 04/09/15 [History] Acetaminophen [Tylenol] 650 mg PO Q4H PRN #0 tablet 04/15/15 [Rx] Metoprolol Succinate [Toprol XL] 50 mg PO WITHLUNCH 10/28/17 [History] Vit A/C/E AC/Znox/Cupric Oxide [Eye Vitamin-Minerals Tablet] 1 tab PO BIDMEALS 10/28/17 [History] Calcium Polycarbophil [Fibercon] 2 tab PO BID 11/22/17 [History] diphenhydrAMINE [Benadryl] 50 mg PO BEDTIME PRN 11/22/17 [History] Past Medical History HEENT History: Reports: Glaucoma, Impaired Vision Other HEENT History: dry eyes Cardiovascular History: Reports: Hypertension Respiratory History: Reports: Pneumonia, Recurrent Gastrointestinal History: Reports: GERD Genitourinary History: Reports: None Musculoskeletal History: Reports: Arthritis, Fracture Neurological History: Reports: Concussion Psychiatric History: Reports: None Endocrine/Metabolic History: Reports: Obesity/BMI 30+ Hematologic History: Reports: Blood Transfusion(s) Immunologic History: Reports: None Oncologic (Cancer) History: Reports: None Dermatologic History: Reports: Cellulitis - Infectious Disease History Infectious Disease History: Reports: Chicken Pox, MRSA - Past Surgical History Head Surgeries/Procedures: Reports: None HEENT Surgical History: Reports: None Cardiovascular Surgical History: Reports: None Respiratory Surgical History: Reports: None Endocrine Surgical History: Reports: None Neurological Surgical History: Reports: None Musculoskeletal Surgical History: Reports: Other (See Below) Other Musculoskeletal Surgeries/Procedures:: right keys skin graft Dermatological Surgical History: Reports: Skin Graft Social & Family History - Family History Family Medical History: Noncontributory Cardiac: Reports: Heart Failure Oncologic: Reports: Other (See Below) Other Oncologic Family History: throat - Tobacco Use Smoking Status *Q: Never Smoker Years of Tobacco use: 30 Packs/Tins Daily: 1 Second Hand Smoke Exposure: No - Caffeine Use Caffeine Use: Reports: Soda - Alcohol Use Days Per Week of Alcohol Use: 0 - Recreational Drug Use Recreational Drug Use: No ED ROS GENERAL - Review of Systems Review Of Systems: ROS reveals no pertinent complaints other than HPI. ED EXAM, RENAL/ - Physical Exam Exam: See Below Exam Limited By: No Limitations General Appearance: Alert, WD/WN, No Apparent Distress Eye Exam: Bilateral Eye: Normal Inspection Ears: Normal External Exam, Normal Canal, Hearing Grossly Normal, Normal TMs Nose: Normal Inspection, Normal Mucosa, No Blood Throat/Mouth: Normal Inspection, Normal Lips, Normal Teeth, Normal Gums, Normal Oropharynx, Normal Voice, No Airway Compromise Head: Atraumatic, Normocephalic Neck: Normal Inspection, Supple, Non-Tender, Full Range of Motion Respiratory/Chest: No Respiratory Distress, Lungs Clear, Normal Breath Sounds, No Accessory Muscle Use, Chest Non-Tender Cardiovascular: Normal Peripheral Pulses, Regular Rate, Rhythm, No Edema, No Gallop, No JVD, No Murmur, No Rub GI/Abdominal: Other (obese) (Male) Exam: Other (blood at urethral tip) Rectal (Males) Exam: Normal Exam, Normal Rectal Tone, Prostate Normal Back Exam: Normal Inspection, Full Range of Motion, NT Extremities: Normal Inspection, Normal Range of Motion, Non-Tender, Normal Capillary Refill, No Pedal Edema Neurological: Alert, Oriented, CN II-XII Intact, Normal Cognition, Normal Gait, Normal Reflexes, No Motor/Sensory Deficits Psychiatric: Normal Affect, Normal Mood Skin Exam: Other (Right knee) Lymphatic: No Adenopathy Course - Vital Signs Last Recorded V/S: Last Vital Signs Temp 96.1 F 11/28/17 11:12 Pulse 94 11/28/17 11:12 Resp 20 11/28/17 11:12 BP 130/88 11/28/17 11:25 Pulse Ox 98 11/28/17 11:12 - Orders/Labs/Meds Labs: Laboratory Tests 11/28/17 11/28/17 11/28/17 Range/Units 11:15 11:47 11:47 WBC 14.3 H (5.0-10.0) 10^3/uL RBC 4.61 (4.6-6.2) 10^6/uL Hgb 12.5 L D (14.0-18.0) g/dL Hct 40.5 (40.0-54.0) % MCV 87.9 (80-100) fL MCH 27.1 (27.0-34.0) pg MCHC 30.9 L (33.0-35.0) g/dL Plt Count 253 (150-450) 10^3/uL Neut % (Auto) 84.3 H (42.2-75.2) % Lymph % (Auto) 6.0 L (20.5-50.1) % Pope % (Auto) 8.9 H (2-8) % Eos % (Auto) 0.7 L (1.0-3.0) % Baso % (Auto) 0.1 (0.0-1.0) % PT (9.0-12.0) SEC INR (0.9-1.2) Sodium 135 (135-145) mmol/L Potassium 3.9 (3.6-5.0) mmol/L Chloride 101 (101-111) mmol/L Carbon Dioxide 25.0 (21.0-31.0) mmol/L Anion Gap 12.9 BUN 17 (7-18) mg/dL Creatinine 0.9 (0.6-1.3) mg/dL Est Cr Clr Drug Dosing 92.89 mL/min Estimated GFR (MDRD) > 60 BUN/Creatinine Ratio 18.88 Glucose 112 H (74-105) mg/dL Calcium 8.6 (8.4-10.2) mg/dl Total Bilirubin 0.8 (0.2-1.0) mg/dL AST 24 (10-42) IU/L ALT 12 (10-60) IU/L Alkaline Phosphatase 54 (42-121) IU/L Total Protein 7.4 (6.7-8.2) g/dl Albumin 3.7 (3.2-5.5) g/dl Globulin 3.7 Albumin/Globulin Ratio 1.00 Urine Color Dark yellow (YELLOW) Urine Appearance Turbid (CLEAR) Urine pH 6.5 (5.0-9.0) Ur Specific [place] 1.020 (1.005-1.030) Urine Protein 30 H (NEGATIVE) Urine Glucose (UA) Negative (NEGATIVE) Urine Ketones Negative (NEGATIVE) Urine Occult Blood Moderate H (NEGATIVE) Urine Nitrite Negative (NEGATIVE) Urine Bilirubin Negative (NEGATIVE) Urine Urobilinogen 0.2 (0.2-1.0) mg/dL Ur Leukocyte Esterase Negative (NEGATIVE) Urine RBC 50-75 H /HPF Urine WBC 0-5 (0-5/HPF) /HPF Ur Epithelial Cells Few /HPF Urine Bacteria Rare (0-FEW/HPF) /HPF Hyaline Casts Few H /LPF Fine Granular Casts Few H (0/LPF) /LPF Urine Mucus Many H /LPF 11/28/17 Range/Units 11:47 WBC (5.0-10.0) 10^3/uL RBC (4.6-6.2) 10^6/uL Hgb (14.0-18.0) g/dL Hct (40.0-54.0) % MCV (80-100) fL MCH (27.0-34.0) pg MCHC (33.0-35.0) g/dL Plt Count (150-450) 10^3/uL Neut % (Auto) (42.2-75.2) % Lymph % (Auto) (20.5-50.1) % Pope % (Auto) (2-8) % Eos % (Auto) (1.0-3.0) % Baso % (Auto) (0.0-1.0) % PT 11.9 D (9.0-12.0) SEC INR 1.2 (0.9-1.2) Sodium (135-145) mmol/L Potassium (3.6-5.0) mmol/L Chloride (101-111) mmol/L Carbon Dioxide (21.0-31.0) mmol/L Anion Gap BUN (7-18) mg/dL Creatinine (0.6-1.3) mg/dL Est Cr Clr Drug Dosing mL/min Estimated GFR (MDRD) BUN/Creatinine Ratio Glucose (74-105) mg/dL Calcium (8.4-10.2) mg/dl Total Bilirubin (0.2-1.0) mg/dL AST (10-42) IU/L ALT (10-60) IU/L Alkaline Phosphatase (42-121) IU/L Total Protein (6.7-8.2) g/dl Albumin (3.2-5.5) g/dl Globulin Albumin/Globulin Ratio Urine Color (YELLOW) Urine Appearance (CLEAR) Urine pH (5.0-9.0) Ur Specific [place] (1.005-1.030) Urine Protein (NEGATIVE) Urine Glucose (UA) (NEGATIVE) Urine Ketones (NEGATIVE) Urine Occult Blood (NEGATIVE) Urine Nitrite (NEGATIVE) Urine Bilirubin (NEGATIVE) Urine Urobilinogen (0.2-1.0) mg/dL Ur Leukocyte Esterase (NEGATIVE) Urine RBC /HPF Urine WBC (0-5/HPF) /HPF Ur Epithelial Cells /HPF Urine Bacteria (0-FEW/HPF) /HPF Hyaline Casts /LPF Fine Granular Casts (0/LPF) /LPF Urine Mucus /LPF Departure - Departure Time of Disposition: 13:04 Disposition: Home, Self-Care 01 Condition: Fair Clinical Impression: Hematuria Qualifiers: Hematuria type: gross Qualified Code(s): R31.0 - Gross hematuria - Discharge Information Instructions: Hematuria, Adult Referrals: Dionne Fermin NP [Primary Care Provider] - Forms: ED Department Discharge Additional Instructions: Follow up with your primary care facility on Thursday Drink plenty of water
== END 2017-11-28 13:16 | disposition home or self-care (01) ==
LOC: DL.ED 11:07
DX: R31.0 Gross hematuria (principal); I10 Essential (primary) hypertension; Z88.1 Allergy status to other antibiotic agents; Z72.0 Tobacco use; Z79.899 Other long term (current) drug therapy
CPT/HCPCS: 36415; 80053; 81001; 85025; 85610; 99282; 99284

== ENCOUNTER 2018-03-12 15:48 | Inpatient (IN) | payer MEDICARE, BC ==
[2018-03-12] MEDS: Sodium Chloride 0.9% 10 ML Syringe FLUSH PRN (16:49)
[2018-03-12 17:07] LABS: CHLORIDE,CL 101 mmol/L (101-111); SODIUM,NA 135 mmol/L (135-145)
[2018-03-12] MEDS ORDERED: SODIUM CHLORIDE 0.9% IV ONE (17:13)
[2018-03-12] MEDS ORDERED: diphenhydrAMINE 50 MG/ML SDV IVPUSH ONE (17:13)
[2018-03-12] MEDS ORDERED: VANCOMYCIN IV ONE (17:13)
--- NOTE | 2018-03-12 17:33 | EDM.PDOC ---
Scribed by Rimma Ball 03/12/18 1731 for Efe De La Torre MD ED HPI GENERAL MEDICAL PROBLEM - General Chief Complaint: Skin Complaint Stated Complaint: [id number] CELLULITUS IN LEG- NEED IV ANTIBIOTICS Time Seen by Provider: 03/12/18 16:20 Source of Information: Reports: Patient, Provider, RN, RN Notes Reviewed History Limitations: Reports: No Limitations - History of Present Illness INITIAL COMMENTS - FREE TEXT/NARRATIVE: Patient from [facility] due to cellulitis of the right lower extremity. Patient began to have rapidly expanding erythema and tenderness to the right leg yesterday associated with fever and chills. Today he went to clinic and was promptly sent to the emergency department for further evaluation and management. Admits to nausea but no vomiting. Onset: Gradual Onset Date: 03/11/18 Duration: Constant, Getting Worse Location: Reports: Lower Extremity, Right Quality: Reports: Ache Severity: Severe Improves with: Reports: None Worsens with: Reports: None Associated Symptoms: Reports: No Other Symptoms Right Leg Pain Score (Numeric/FACES): 3 - Related Data Allergies Allergy/AdvReac Type Severity Reaction Status Date / Time azithromycin [From Zithromax] Allergy Intermediate Other Verified 03/12/18 16:17 Home Meds: Home Meds Latanoprost 1 drop EYERT BEDTIME 04/09/15 [History] Naproxen [Naprosyn] 500 mg PO BID 04/09/15 [History] Omeprazole 20 mg PO BIDM 04/09/15 [History] cycloSPORINE [Restasis] 1 drop EYEBOTH BID 04/09/15 [History] Acetaminophen [Tylenol] 650 mg PO Q4H PRN #0 tablet 04/15/15 [Rx] Metoprolol Succinate [Toprol XL] 50 mg PO WITHLUNCH 10/28/17 [History] Vit A/C/E AC/Znox/Cupric Oxide [Eye Vitamin-Minerals Tablet] 1 tab PO BIDMEALS 10/28/17 [History] Calcium Polycarbophil [Fibercon] 2 tab PO TID 11/22/17 [History] diphenhydrAMINE [Benadryl] 100 mg PO BEDTIME PRN 11/22/17 [History] Ferrous Sulfate 325 mg PO ASDIRECTED 03/12/18 [History] Warfarin Sodium [Jantoven] 5 mg PO ASDIRECTED 03/12/18 [History] Warfarin Sodium [Jantoven] 7.5 mg PO ASDIRECTED 03/12/18 [History] Past Medical History HEENT History: Reports: Glaucoma, Impaired Vision Other HEENT History: dry eyes Cardiovascular History: Reports: Hypertension Respiratory History: Reports: Pneumonia, Recurrent Gastrointestinal History: Reports: GERD Genitourinary History: Reports: None Musculoskeletal History: Reports: Arthritis, Fracture Neurological History: Reports: Concussion Psychiatric History: Reports: None Endocrine/Metabolic History: Reports: Obesity/BMI 30+ Hematologic History: Reports: Blood Transfusion(s) Immunologic History: Reports: None Oncologic (Cancer) History: Reports: None Dermatologic History: Reports: Cellulitis - Infectious Disease History Infectious Disease History: Reports: Chicken Pox, MRSA - Past Surgical History Head Surgeries/Procedures: Reports: None HEENT Surgical History: Reports: None Cardiovascular Surgical History: Reports: None Respiratory Surgical History: Reports: None Endocrine Surgical History: Reports: None Neurological Surgical History: Reports: None Musculoskeletal Surgical History: Reports: Other (See Below) Other Musculoskeletal Surgeries/Procedures:: right keys skin graft Dermatological Surgical History: Reports: Skin Graft Social & Family History - Family History Family Medical History: Noncontributory Cardiac: Reports: Heart Failure Oncologic: Reports: Other (See Below) Other Oncologic Family History: throat - Caffeine Use Caffeine Use: Reports: Soda - Living Situation & Occupation Living situation: Reports: Single ED ROS GENERAL - Review of Systems Review Of Systems: ROS reveals no pertinent complaints other than HPI. ED EXAM, SKIN/RASH Exam: See Below Exam Limited By: No Limitations General Appearance: Alert, No Apparent Distress, Obese (morbidly), Other (ill but non-toxic appearing.) Eye Exam: Bilateral Eye: Normal Inspection Ears: Hearing Grossly Normal Nose: Normal Inspection Throat/Mouth: Normal Inspection, Normal Voice, No Airway Compromise Head: Atraumatic, Normocephalic Neck: Normal Inspection Respiratory/Chest: No Respiratory Distress, No Accessory Muscle Use, Chest Non- Tender, Decreased Breath Sounds Cardiovascular: Regular Rate, Rhythm, Tachycardia GI/Abdominal: Normal Bowel Sounds, Soft, No Distention, Other (benign obese) (Male) Exam: Deferred Rectal (Males) Exam: Deferred Back Exam: Normal Inspection Extremities: Normal Range of Motion, Leg Pain (right lower extremity), Increased Warmth (right lower extremity), Redness (acutely tender erythema from the right ankle to the right medial thigh at the anterior medial and extending onto the posterior thigh. Wound dressing on the right anterior mid thigh with no active drainage. ). No: Joint Swelling Neurological: Alert, Oriented, No Motor/Sensory Deficits Psychiatric: Normal Affect, Normal Mood Course - Vital Signs Last Recorded V/S: Last Vital Signs Temp 37.1 C 03/12/18 16:14 Pulse 99 03/12/18 16:14 Resp 18 03/12/18 16:14 BP 131/75 03/12/18 16:14 Pulse Ox 96 03/12/18 16:14 - Orders/Labs/Meds Orders: Active Orders 24 hr Category Date Time Status Peripheral IV Care [RC] . DIRECTED Care 03/12/18 16:23 Active CULTURE BLOOD [BC] Stat Lab 03/12/18 16:40 Received CULTURE BLOOD [BC] Stat Lab 03/12/18 17:20 Received Sodium Chloride 0.9% [Saline Flush] Med 03/12/18 16:23 Active 10 ml FLUSH ASDIRECTED PRN Vancomycin 3 gm Med 03/12/18 17:13 Active Sodium Chloride 0.9% [Normal Saline] 500 ml IV ONETIME Blood Culture x2 Reflex Set [OM.PC] Stat Oth 03/12/18 16:23 Ordered Peripheral IV Insertion Adult [OM.PC] Stat Oth 03/12/18 16:22 Ordered Medication Orders Vancomycin HCl 3 gm/ Sodium (Chloride) 500 mls @ 334 mls/hr IV ONETIME ONE Stop: 03/12/18 18:42 Sodium Chloride (Saline Flush) 10 ml FLUSH ASDIRECTED PRN PRN Reason: Keep Vein Open Last Admin: 03/12/18 16:49 Dose: 10 ml Labs: Laboratory Tests 03/12/18 03/12/18 03/12/18 Range/Units 16:40 16:40 16:40 WBC 21.1 H (5.0-10.0) 10^3/uL RBC 5.08 (4.6-6.2) 10^6/uL Hgb 13.0 L (14.0-18.0) g/dL Hct 40.7 (40.0-54.0) % MCV 80.1 D (80-100) fL MCH 25.6 L (27.0-34.0) pg MCHC 31.9 L (33.0-35.0) g/dL Plt Count 306 (150-450) 10^3/uL Neut % (Auto) 87.4 H (42.2-75.2) % Lymph % (Auto) 5.7 L (20.5-50.1) % Iron % (Auto) 6.7 (2-8) % Eos % (Auto) 0.1 L (1.0-3.0) % Baso % (Auto) 0.1 (0.0-1.0) % PT 22.4 H D (9.0-12.0) SEC INR 2.3 H (0.9-1.2) Sodium 135 (135-145) mmol/L Potassium 4.0 (3.6-5.0) mmol/L Chloride 101 (101-111) mmol/L Carbon Dioxide 25.0 (21.0-31.0) mmol/L Anion Gap 13.0 BUN 20 H (7-18) mg/dL Creatinine 1.0 (0.6-1.3) mg/dL Est Cr Clr Drug Dosing 83.60 mL/min Estimated GFR (MDRD) > 60 BUN/Creatinine Ratio 20.00 Glucose 118 H (74-105) mg/dL Lactic Acid (0.5-2.2) mmol/L Calcium 8.9 (8.4-10.2) mg/dl Total Bilirubin 0.7 (0.2-1.0) mg/dL AST 23 (10-42) IU/L ALT 14 (10-60) IU/L Alkaline Phosphatase 72 (42-121) IU/L C-Reactive Protein (0.0-1.3) mg/dL Total Protein 7.9 (6.7-8.2) g/dl Albumin 3.6 (3.2-5.5) g/dl Globulin 4.3 Albumin/Globulin Ratio 0.84 03/12/18 03/12/18 Range/Units 16:40 16:40 WBC (5.0-10.0) 10^3/uL RBC (4.6-6.2) 10^6/uL Hgb (14.0-18.0) g/dL Hct (40.0-54.0) % MCV (80-100) fL MCH (27.0-34.0) pg MCHC (33.0-35.0) g/dL Plt Count (150-450) 10^3/uL Neut % (Auto) (42.2-75.2) % Lymph % (Auto) (20.5-50.1) % Iron % (Auto) (2-8) % Eos % (Auto) (1.0-3.0) % Baso % (Auto) (0.0-1.0) % PT (9.0-12.0) SEC INR (0.9-1.2) Sodium (135-145) mmol/L Potassium (3.6-5.0) mmol/L Chloride (101-111) mmol/L Carbon Dioxide (21.0-31.0) mmol/L Anion Gap BUN (7-18) mg/dL Creatinine (0.6-1.3) mg/dL Est Cr Clr Drug Dosing mL/min Estimated GFR (MDRD) BUN/Creatinine Ratio Glucose (74-105) mg/dL Lactic Acid 1.9 (0.5-2.2) mmol/L Calcium (8.4-10.2) mg/dl Total Bilirubin (0.2-1.0) mg/dL AST (10-42) IU/L ALT (10-60) IU/L Alkaline Phosphatase (42-121) IU/L C-Reactive Protein 18.8 H (0.0-1.3) mg/dL Total Protein (6.7-8.2) g/dl Albumin (3.2-5.5) g/dl Globulin Albumin/Globulin Ratio Meds: Medications Generic Name Dose Route Start Last Admin Trade Name Freq PRN Reason Stop Dose Admin Vancomycin HCl 3 gm/ Sodium 500 mls @ 334 mls/hr 03/12/18 17:13 Chloride IV 03/12/18 18:42 ONETIME ONE Sodium Chloride 10 ml 03/12/18 16:23 03/12/18 16:49 Saline Flush FLUSH 10 ml ASDIRECTED PRN Administration Keep Vein Open Discontinued Medications Generic Name Dose Route Start Last Admin Trade Name Freq PRN Reason Stop Dose Admin Diphenhydramine HCl 25 mg 03/12/18 17:13 Benadryl IVPUSH 03/12/18 17:14 ONETIME ONE Departure - Departure Time of Disposition: 17:29 ((Admit to Dr. Martino)) Disposition: Admitted As Inpatient 66 Condition: Serious Clinical Impression: Cellulitis of right lower extremity, Morbid obesity, Chronic anticoagulation - Discharge Information Referrals: Kellie Potts PA-C [Primary Care Provider] - Forms: ED Department Discharge - My Orders Last 24 Hours: My Active Orders 03/12/18 16:22 Peripheral IV Insertion Adult [OM.PC] Stat 03/12/18 16:23 Peripheral IV Care [RC] . DIRECTED Sodium Chloride 0.9% [Saline Flush] 10 ml FLUSH ASDIRECTED PRN Blood Culture x2 Reflex Set [OM.PC] Stat 03/12/18 16:40 CULTURE BLOOD [BC] Stat 03/12/18 17:13 Vancomycin 3 gm Sodium Chloride 0.9% [Normal Saline] 500 ml IV ONETIME 03/12/18 17:20 CULTURE BLOOD [BC] Stat - Assessment/Plan Last 24 Hours: My Active Orders 03/12/18 16:22 Peripheral IV Insertion Adult [OM.PC] Stat 03/12/18 16:23 Peripheral IV Care [RC] . DIRECTED Sodium Chloride 0.9% [Saline Flush] 10 ml FLUSH ASDIRECTED PRN Blood Culture x2 Reflex Set [OM.PC] Stat 03/12/18 16:40 CULTURE BLOOD [BC] Stat 03/12/18 17:13 Vancomycin 3 gm Sodium Chloride 0.9% [Normal Saline] 500 ml IV ONETIME 03/12/18 17:20 CULTURE BLOOD [BC] Stat I have read and agree with the documentation that has been completed regarding this visit. By signing this record, I attest that the documentation was completed in my physical presence and is an accurate record of the encounter.
[2018-03-12] MEDS ORDERED: Zolpidem 5 MG Tab PO PRN (19:19)
[2018-03-12] MEDS ORDERED: Acetaminophen 325 MG Tab PO PRN (19:19)
[2018-03-12] MEDS ORDERED: Acetaminophen/oxyCODONE 325-5 MG Tab PO PRN (19:22)
[2018-03-12] MEDS: Piperacillin/Tazobactam 3.375 GM in Sodium Chloride 0.9% 100 ML IV SCH (20:45)
[2018-03-12] MEDS: Ferrous Sulfate 325 MG Tab PO SCH (20:46)
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
[2018-03-12] MEDS: Calcium Polycarbophil 625 MG Tab PO SCH (21:39)
[2018-03-12] MEDS: Latanoprost 0.005% Ophth Soln 2.5 ML Bottle EYERT SCH (21:39)
[2018-03-12] MEDS: cycloSPORINE Ophth Drops U/D Box of 30 EYEBOTH SCH (21:40)
[2018-03-12] MEDS: diphenhydrAMINE 25 MG Tab PO PRN (22:49)
[2018-03-13] MEDS: Lutein/Minerals/Vit A,C & E Tab PO SCH ×3 (01:13→21:09)
[2018-03-13] MEDS: Vancomycin 1.5 GM in Sodium Chloride 0.9% 500 ML IV SCH ×5 (01:30→22:28)
[2018-03-13] MEDS: Piperacillin/Tazobactam 3.375 GM in Sodium Chloride 0.9% 100 ML IV SCH ×5 (03:19→21:21)
[2018-03-13] MEDS: Omeprazole 20 MG Cap.CR PO SCH ×2 (06:07→18:00)
[2018-03-13 06:54] LABS: ANION GAP 10.7; CHLORIDE,CL 103 mmol/L (101-111); SODIUM,NA 138 mmol/L (135-145)
[2018-03-13] MEDS: Calcium Polycarbophil 625 MG Tab PO SCH ×3 (10:04→21:10)
[2018-03-13] MEDS: cycloSPORINE Ophth Drops U/D Box of 30 EYEBOTH SCH ×2 (10:05→21:10)
[2018-03-13] MEDS: Metoprolol Succinate 50 MG Tab.ER PO SCH (12:13)
[2018-03-13] MEDS ORDERED: Warfarin 5 MG Tab PO SCH (14:00)
[2018-03-13] MEDS ORDERED: Warfarin 5 MG Tab PO ONE (14:00)
--- NOTE | 2018-03-13 14:02 | PN ---
DATE: 03/13/2018 SUBJECTIVE: Mr. David Francis is a 52-year-old male with medical history significant for morbid obesity, recent history of extensive wound infection, hematoma to the right knee after having a fall while on Coumadin requiring evacuation of the hematoma, wound debridement, and skin grafting, back in December admitted to the hospital with complaint with complaints of erythema and swelling to the right lower extremity, noted to have cellulitis. For the last 24 hours, the patient was taken to the CT scanner for doing CAT scan of his right lower extremity, but the patient could not fit into the CAT scanner. This morning, he denies any chest pain. No shortness of breath. No abdominal pain. No nausea. No vomiting. No diarrhea. Remains afebrile. REVIEW OF SYSTEMS: Cardiovascular, respiratory, gastrointestinal, neurology, constitutional were all evaluated. PHYSICAL EXAMINATION: Vital Signs: Temperature of 98.6, pulse of 72, blood pressure 112/61, respiratory rate of 20, saturating at 97% on room air. General Appearance: The patient is well oriented to time, place, and person. Follows commands spontaneously. Cardiovascular System: S1, S2 heard with normal intensity. No gallops. Respiratory System: Clear to auscultation bilaterally. No wheeze. No crepitations. Abdomen: Soft. Bowel sounds positive. Nontender. No rigidity. Extremities: Erythema and swelling to the right lower extremity with a small open wound noted on the right lower extremity around the knee which is superficial in nature. Mild eschar with tissue noted and which was easily scraped off. No drainage or secretions noted at this time. Neurology: No gross focal neurological deficit. MEDICATIONS: Reviewed, continue with: 1. Tylenol 650 every 4 hours as needed for pain and fever. 2. FiberCon 3 times a day. 3. Cyclosporine twice a day to the eye. 4. Ferrous sulfate 325 mg every 48 hours. 5. Xalatan eye drops. 6. Toprol-XL 50 mg daily. 7. Nystatin topical daily. 8. Omeprazole 20 mg twice a day. 9. Percocet 5/325 every 4 hours as needed for pain. 10.Zosyn 3.375 g IV q.6 hourly. 11.Vancomycin, pharmacy to dose. 12.Coumadin, pharmacy to dose. LABORATORY DATA: WBC 13.4, improved from 21.1; hemoglobin 11.6; hematocrit 37.1; platelet count 270. INR 2.7. Sodium 138, potassium 3.7, chloride 103, bicarb 28, BUN 15, creatinine 1, glucoses 110. ASSESSMENT: 1. Cellulitis. 2. Chronic anticoagulation with Coumadin. 3. History of deep venous thrombosis in the past. 4. Hypertension. 5. Morbid obesity. 6. Glaucoma. PLAN: 1. Cellulitis. The patient is started on IV antibiotics, Zosyn and vancomycin. We will obtain a wound culture and the patient is responding well to the antibiotics. His erythema seems to be improved from yesterday and also leukocytosis, improved. We will continue with current antibiotics, we will follow the culture reports. We will follow the blood culture reports. 2. Chronic anticoagulation, pharmacy to dose the Coumadin for therapeutic INR of 2 to 3. We will closely monitor and maintain INR of 2 to 3. 3. Hypertension. The patient's blood pressure seems to be well controlled. Continue with beta-mira. [facility] /[id number]
[2018-03-13] MEDS: Nystatin Topical Powder 30 GM Bottle TOP PRN (15:54)
[2018-03-13] MEDS: Latanoprost 0.005% Ophth Soln 2.5 ML Bottle EYERT SCH (21:11)
[2018-03-14] MEDS: diphenhydrAMINE 25 MG Tab PO PRN ×2 (00:24→23:16)
[2018-03-14] MEDS: Piperacillin/Tazobactam 3.375 GM in Sodium Chloride 0.9% 100 ML IV SCH ×4 (03:42→21:23)
[2018-03-14] MEDS: Omeprazole 20 MG Cap.CR PO SCH ×2 (06:24→17:04)
[2018-03-14 07:02] LABS: ANION GAP 9.9; CHLORIDE,CL 105 mmol/L (101-111); SODIUM,NA 139 mmol/L (135-145)
[2018-03-14] MEDS: Calcium Polycarbophil 625 MG Tab PO SCH ×3 (09:25→20:59)
[2018-03-14] MEDS: cycloSPORINE Ophth Drops U/D Box of 30 EYEBOTH SCH ×2 (09:26→20:59)
[2018-03-14] MEDS: Lutein/Minerals/Vit A,C & E Tab PO SCH ×2 (09:26→20:59)
[2018-03-14] MEDS: Sodium Chloride 0.9% 10 ML Syringe FLUSH PRN ×2 (09:28→10:38)
[2018-03-14] MEDS: Vancomycin 1.5 GM in Sodium Chloride 0.9% 500 ML IV SCH ×2 (11:16→23:07)
[2018-03-14] MEDS: Metoprolol Succinate 50 MG Tab.ER PO SCH (12:44)
[2018-03-14] MEDS ORDERED: Warfarin 5 MG Tab PO ONE (14:00)
--- NOTE | 2018-03-14 14:43 | PN ---
DATE: 03/14/2018 SUBJECTIVE: Mr. David Francis is a 52-year-old male with medical history significant for morbid obesity, extensive wound infection resulting from hematoma, requiring wound debridement and skin grafting back in December, admitted to the hospital with cellulitis to the right lower extremity. For the last 24 hours, the patient's erythema and swelling have much improved. He denies any complaints of chest pain. No shortness of breath. No abdominal pain. No nausea. No vomiting. No diarrhea. REVIEW OF SYSTEMS: Cardiovascular, respiratory, gastrointestinal, neurology, constitutional were all evaluated. PHYSICAL EXAMINATION: Vital Signs: Temperature of 98.2, pulse of 68, blood pressure 123/72, respiratory rate of 20, and saturating at 98% on room air. General Appearance: The patient is well oriented to time, place, and person. Follows commands spontaneously. Cardiovascular System: S1 and S2 heard with normal intensity. No gallops. Respiratory System: Clear to auscultation bilaterally. No wheeze. No crepitations. Abdomen: Soft. Bowel sounds positive. Nontender. No rigidity. Extremities: Superficial wound noted on the right lower extremity around the knee. Mild erythema and swelling, much improved from the time of admission. LABORATORY DATA: Labs reviewed. 1. WBC 11.4, improved from 13.4 from yesterday. Hemoglobin 10.9, hematocrit 34.9, platelet count 261. 2. Sodium 139, potassium 3.9, chloride 105, bicarb 28, BUN 12, creatinine 0.9. ASSESSMENT: 1. Cellulitis of the right lower extremity. 2. History of deep venous thrombosis in the past. 3. Chronic anticoagulation with Coumadin. 4. Hypertension. 5. Morbid obesity. 6. Glaucoma. PLAN: 1. Cellulitis. The patient is improving with current IV antibiotic regimen. We will await for blood cultures, and if there is no MRSA, then one can discontinue the vancomycin and continue with Zosyn for now. We will closely follow the blood culture reports. 2. Continue with daily dressings to the wound. The patient would benefit from wound care clinic appointment after getting discharged from the hospital. 3. Chronic anticoagulation. The patient had history of DVT in the past, has been on Coumadin. Pharmacy to dose the Coumadin for therapeutic INR of 2 to 3. 4. Hypertension. Continue with Toprol-XL. His blood pressure seems to be well controlled. [facility] /[id number]
[2018-03-14] MEDS: Ferrous Sulfate 325 MG Tab PO SCH (18:05)
[2018-03-14] MEDS: Latanoprost 0.005% Ophth Soln 2.5 ML Bottle EYERT SCH (20:58)
[2018-03-15] MEDS: Piperacillin/Tazobactam 3.375 GM in Sodium Chloride 0.9% 100 ML IV SCH ×4 (03:34→21:56)
[2018-03-15] MEDS: Omeprazole 20 MG Cap.CR PO SCH ×2 (06:40→17:12)
[2018-03-15] MEDS: Calcium Polycarbophil 625 MG Tab PO SCH ×3 (09:36→17:09)
[2018-03-15] MEDS: Lutein/Minerals/Vit A,C & E Tab PO SCH ×2 (09:36→22:03)
[2018-03-15] MEDS: cycloSPORINE Ophth Drops U/D Box of 30 EYEBOTH SCH ×2 (09:36→22:03)
[2018-03-15 11:05] LABS: ANION GAP 8.1; CHLORIDE,CL 102 mmol/L (101-111); SODIUM,NA 136 mmol/L (135-145)
[2018-03-15] MEDS: Vancomycin 1.5 GM in Sodium Chloride 0.9% 500 ML IV SCH ×2 (13:01→23:10)
[2018-03-15] MEDS: Metoprolol Succinate 50 MG Tab.ER PO SCH (13:01)
--- NOTE | 2018-03-15 13:11 | PN ---
DATE: 03/15/2018 HISTORY OF PRESENT ILLNESS: Mr. David Francis is a 52-year-old male with medical history significant for morbid obesity, extensive wound infection resulting from hematoma to the right lower extremity requiring wound debridement and skin grafting, back in December, admitted with cellulitis to the right lower extremity. For the last 24 hours, the patient denies any chest pain. No shortness of breath. No abdominal pain. No nausea. No vomiting. No diarrhea. Continues to have swelling to the medial thigh and noted to have some weeping from the swelling. REVIEW OF SYSTEMS: Cardiovascular, respiratory, gastrointestinal, neurology, constitutional were all evaluated. PHYSICAL EXAMINATION: Vital Signs: Temperature of 98.4, pulse of 69, blood pressure of 141/77, respiratory rate of 18, saturating 97% on room air. General Appearance: The patient is well oriented to time, place, and person. Follows commands spontaneously. Cardiovascular System: S1, S2 heard with normal intensity. No gallops. Respiratory System: Clear to auscultation bilaterally. No wheeze. No crepitations. Abdomen: Soft. Bowel sounds positive. Nontender. No rigidity. Extremities: Mild edema in bilateral lower extremities. The patient is noted to have extensive swelling noted to the medial side of the thigh where there was some weeping noted, superficial wound near the knee, anterior surface. No active discharge or drainage noted from the wound. Erythema has much improved from the time of admission. Neurology: No gross focal neurological deficit. MEDICATIONS: Reviewed. Continue with, 1. Toprol-XL 50 mg. 2. The patient is currently on Zosyn and vancomycin, continue the same. Pharmacy to dose the vancomycin. 3. Continue with Coumadin. 4. Omeprazole 20 mg twice a day. 5. Tylenol 650 every 4 hours as needed for pain. LABORATORY DATA: Reviewed. Sodium 136, potassium 4.1, chloride 102, bicarb 30, BUN 12, creatinine 1. WBC 9.9, hemoglobin 11.2, hematocrit 35.9, platelet count 298. ASSESSMENT: 1. Cellulitis, involving the right lower extremity. 2. Morbid obesity. 3. Hypertension. 4. Chronic anticoagulation with Coumadin. 5. History of deep venous thrombosis in the past. PLAN: 1. Cellulitis. The patient was admitted with cellulitis involving the right lower extremity, was noted to have leukocytosis up to 21.1, this has improved to 9.9 and normalized at this time. He is currently on IV Zosyn and vancomycin. So far, his blood cultures remained negative. We did wound culture, we will follow with the wound culture report and if it is not MRSA then one can possibly hold the vancomycin. 2. Chronic anticoagulation, the patient is continued on Coumadin. Pharmacy to dose the Coumadin for therapeutic INR of 2 to 3. 3. Hypertension. The patient's blood pressure seems to be in acceptable range. Continue with metoprolol for now. 4. The patient will be encouraged to have the right lower extremity elevated to decrease the swelling. [facility] /[id number]
[2018-03-15] MEDS ORDERED: Warfarin 5 MG Tab PO ONE (14:00)
[2018-03-15] MEDS ORDERED: Warfarin 2.5 MG Tab PO SCH (14:00)
[2018-03-15] MEDS: Latanoprost 0.005% Ophth Soln 2.5 ML Bottle EYERT SCH (22:04)
[2018-03-15] MEDS: diphenhydrAMINE 25 MG Tab PO PRN (23:13)
[2018-03-16] MEDS: Piperacillin/Tazobactam 3.375 GM in Sodium Chloride 0.9% 100 ML IV SCH ×4 (03:37→21:23)
[2018-03-16] MEDS: Omeprazole 20 MG Cap.CR PO SCH ×2 (05:55→17:58)
[2018-03-16 06:50] LABS: ANION GAP 10.7; CHLORIDE,CL 104 mmol/L (101-111); SODIUM,NA 140 mmol/L (135-145)
[2018-03-16] MEDS: Calcium Polycarbophil 625 MG Tab PO SCH ×3 (08:16→17:57)
[2018-03-16] MEDS: cycloSPORINE Ophth Drops U/D Box of 30 EYEBOTH SCH ×2 (09:06→21:21)
[2018-03-16] MEDS: Lutein/Minerals/Vit A,C & E Tab PO SCH ×2 (09:06→21:21)
[2018-03-16] MEDS: Metoprolol Succinate 50 MG Tab.ER PO SCH (12:57)
--- NOTE | 2018-03-16 13:42 | PN ---
DATE: 03/16/2018 SUBJECTIVE: Mr. David Francis is a 52-year-old male with medical history significant for morbid obesity, extensive wound infection resulting from hematoma to the right lower extremity requiring wound debridement and skin grafting, back in December, admitted with cellulitis to the right lower extremity. For the last 24 hours, the patient is continued on IV antibiotics. He denies any chest pain. No shortness of breath. No abdominal pain. No nausea. No vomiting. No diarrhea. His swelling to the right lower extremity seems to be improving at this time. REVIEW OF SYSTEMS: Cardiovascular, respiratory, gastrointestinal, neurology, constitutional were all evaluated. PHYSICAL EXAMINATION: Vital Signs: Temperature of 98, pulse of 71, blood pressure of 137/75, respiratory rate of 20, saturating at 96% on room air. General Appearance: The patient is well oriented to time, place, and person. Follows commands spontaneously. Cardiovascular System: S1, S2 heard with normal intensity. No gallops. Respiratory System: Clear to auscultation bilaterally. No wheeze. No crepitations. Abdomen: Soft. Bowel sounds positive. Nontender. No rigidity. Extremities: No edema, bilateral lower extremities. Erythema and tenderness to the right lower extremity, much improved. Superficial wound noted on the right knee with clean base, improving and swelling to the medial thigh, improving with elevation. MEDICATIONS: Reviewed. Continue with, 1. Tylenol 650 every 4 hours as needed for pain. 2. FiberCon 625 mg. 3. Restasis, both eyes. 4. Ferrous sulfate 325 mg every 48 hours. 5. Toprol-XL 50 mg daily. 6. Nystatin. 7. Percocet 5/325 mg as needed for severe pain. 8. Omeprazole 20 mg twice a day. 9. Zosyn q.6 hourly. 10.Coumadin, pharmacy to dose. 11.Ambien 5 mg at night for sleep. LABORATORY DATA: Labs reviewed, WBC 10, hemoglobin 11.2, hematocrit 35.9, platelet count 299. Sodium 140, potassium 3.7, chloride 104, bicarb 29, BUN 12, creatinine 1.2. Glucose 100. ASSESSMENT: 1. Cellulitis to the right lower extremity. 2. Morbid obesity. 3. Hypertension. 4. History of deep venous thrombosis in the past. 5. Chronic anticoagulation with Coumadin. PLAN: 1. Cellulitis. This seems to be improving. The patient had extensive skin grafting done recently back in December, and he has a superficial wound which seems to be healing at this time. Highly recommend to continue with IV antibiotics to complete a course of 5-7 days of IV antibiotics. His wound culture is growing Streptococcus and sensitive to penicillin, so we will discontinue the vancomycin, continue Zosyn. The patient is encouraged to keep his right lower extremity elevated to improve swelling and also the pain. We will closely follow. 2. Hypertension. The patient's blood pressure seems to be in acceptable range. Continue current dose of beta mira. 3. Chronic anticoagulation. The patient had history of DVT in the past. He is on Coumadin. Pharmacy to dose the Coumadin for therapeutic INR of 2 to 3. [facility] /[id number]
[2018-03-16] MEDS ORDERED: Warfarin 5 MG Tab PO ONE (14:00)
[2018-03-16] MEDS: Ferrous Sulfate 325 MG Tab PO SCH (18:00)
[2018-03-16] MEDS: Sodium Chloride 0.9% 10 ML Syringe FLUSH PRN (21:22)
[2018-03-16] MEDS: Nystatin Topical Powder 30 GM Bottle TOP PRN (21:28)
[2018-03-16] MEDS: Latanoprost 0.005% Ophth Soln 2.5 ML Bottle EYERT SCH (21:28)
[2018-03-16] MEDS: diphenhydrAMINE 25 MG Tab PO PRN (23:21)
[2018-03-17] MEDS: Piperacillin/Tazobactam 3.375 GM in Sodium Chloride 0.9% 100 ML IV SCH ×4 (03:34→17:42)
[2018-03-17] MEDS: Sodium Chloride 0.9% 10 ML Syringe FLUSH PRN (03:34)
[2018-03-17] MEDS: Omeprazole 20 MG Cap.CR PO SCH ×2 (05:00→17:42)
[2018-03-17] MEDS: cycloSPORINE Ophth Drops U/D Box of 30 EYEBOTH SCH ×2 (08:54→20:26)
[2018-03-17] MEDS: Lutein/Minerals/Vit A,C & E Tab PO SCH ×2 (08:54→20:26)
[2018-03-17] MEDS: Calcium Polycarbophil 625 MG Tab PO SCH ×3 (08:54→17:41)
[2018-03-17] MEDS: Metoprolol Succinate 50 MG Tab.ER PO SCH (12:50)
--- NOTE | 2018-03-17 13:08 | PN ---
DATE: 03/17/2018 HISTORY OF PRESENT ILLNESS: Mr. David Francis is a 52-year-old male with medical history significant for morbid obesity, extensive wound infection resulting from hematoma to the right lower extremity requiring wound debridement, skin grafting back in December, admitted with cellulitis involving the right lower extremity. For the last 24 hours, the patient denies any complaints of chest pain. No shortness of breath. No abdominal pain. No nausea. No vomiting. No diarrhea. He is continued on IV antibiotics. REVIEW OF SYSTEMS: Cardiovascular, respiratory, gastrointestinal, neurology, constitutional were all evaluated. PHYSICAL EXAMINATION: Vital Signs: Temperature of 98, pulse of 76, blood pressure 134/76, respiratory rate of 16, saturating 96% on room air. General Appearance: The patient is well oriented to time, place, and person. Follows commands spontaneously. Cardiovascular System: S1, S2 heard with normal intensity. No gallops. Respiratory System: Clear to auscultation bilaterally. No wheeze. No crepitations. Abdomen: Soft. Bowel sounds positive. Nontender. No rigidity. Extremities: Mild edema, bilateral lower extremity and right lower extremities erythema and swelling has much improved. Superficial wound noted, improving. Neurology: No gross focal neurological deficit. MEDICATIONS: Reviewed, continue with, 1. Toprol-XL 50 mg daily. 2. Continue with the Zosyn. 3. Continue with Coumadin. Pharmacy to dose the Coumadin for therapeutic INR of 2 to 3. LABORATORY DATA: Reviewed, INR of 2.3. ASSESSMENT: 1. Cellulitis, involving the right lower extremity. 2. Hypertension. 3. History of deep venous thrombosis. 4. On chronic anticoagulation with Coumadin. 5. Morbid obesity. PLAN: 1. Cellulitis. His cellulitis is much improved. The patient has a recurrent history of cellulitis and recently underwent skin graft, so would recommend continuing the IV antibiotics for a total of 1 week to prevent any complications. The patient is encouraged to keep his right lower extremity elevated to decrease the swelling and pain. We will closely follow. 2. Hypertension. Continue with metoprolol. 3. Chronic anticoagulation, pharmacy to dose the Coumadin for therapeutic INR of 2 to 3. 4. The patient had history of DVT in the past. Discharge plans ongoing. The patient could potentially be discharged on Thursday after completing his IV antibiotic course. [facility] /[id number]
[2018-03-17] MEDS ORDERED: Warfarin 5 MG Tab PO ONE (14:00)
[2018-03-17] MEDS: Latanoprost 0.005% Ophth Soln 2.5 ML Bottle EYERT SCH (20:27)
[2018-03-17] MEDS: diphenhydrAMINE 25 MG Tab PO PRN (23:51)
[2018-03-18] MEDS: Piperacillin/Tazobactam 3.375 GM in Sodium Chloride 0.9% 100 ML IV SCH ×5 (00:07→23:59)
[2018-03-18] MEDS: Sodium Chloride 0.9% 10 ML Syringe FLUSH PRN ×5 (00:08→18:35)
[2018-03-18] MEDS: Omeprazole 20 MG Cap.CR PO SCH ×2 (06:18→17:49)
[2018-03-18 07:02] LABS: ANION GAP 10.7; CHLORIDE,CL 103 mmol/L (101-111); SODIUM,NA 140 mmol/L (135-145)
--- NOTE | 2018-03-18 10:22 | PCM.PN ---
- General Info Date of Service: 03/18/18 Admission Dx/Problem (Free Text): Cellulitis Subjective Update: The patient is a 52-year-old gentleman with a history of morbid obesity, right lower extremity hamartoma complicated with wound infection status post skin grafting. The patient presented with right lower extremity redness. Admitted for cellulitis. For the last 24 hours the patient is feeling well. The redness in the right lower extremity is a mild and has much improved since admission. No associated abdominal pain, nausea. Low-grade fever noted. Functional Status: Reports: Pain Controlled - Review of Systems General: Reports: Fever Pulmonary: Denies: Shortness of Breath Cardiovascular: Denies: Chest Pain Gastrointestinal: Denies: Abdominal Pain Genitourinary: Denies: Dysuria Skin: Reports: Other (Right lower extremity inner thigh area not draining any more) Neurological: Denies: Confusion - Patient Data Vitals - Most Recent: Last Vital Signs Temp 36.2 C 03/18/18 07:53 Pulse 60 03/18/18 07:53 Resp 20 03/18/18 07:53 BP 133/66 03/18/18 07:53 Pulse Ox 95 03/18/18 07:53 Weight - Most Recent: 213.687 kg I&O - Last 24 Hours: Intake & Output 03/17/18 03/18/18 03/18/18 22:59 06:59 14:59 Intake Total 250 550 100 Output Total 1650 Balance 250 -1100 100 Lab Results Last 24 Hours: Laboratory Results - last 24 hr 03/18/18 03/18/18 03/18/18 Range/Units 06:09 06:09 06:09 WBC 9.9 (5.0-10.0) 10^3/uL RBC 4.56 L (4.6-6.2) 10^6/uL Hgb 11.5 L (14.0-18.0) g/dL Hct 37.0 L (40.0-54.0) % MCV 81.1 (80-100) fL MCH 25.2 L (27.0-34.0) pg MCHC 31.1 L (33.0-35.0) g/dL Plt Count 336 (150-450) 10^3/uL PT 23.4 H (9.0-12.0) SEC INR 2.4 H (0.9-1.2) Sodium 140 (135-145) mmol/L Potassium 3.7 (3.6-5.0) mmol/L Chloride 103 (101-111) mmol/L Carbon Dioxide 30.0 (21.0-31.0) mmol/L Anion Gap 10.7 BUN 14 (7-18) mg/dL Creatinine 1.2 (0.6-1.3) mg/dL Est Cr Clr Drug Dosing 69.67 mL/min Estimated GFR (MDRD) > 60 Glucose 96 (74-105) mg/dL Calcium 8.5 (8.4-10.2) mg/dl [place] Results Last 24 Hours: Microbiology 03/12/18 17:20 Aerobic Blood Culture - Final Blood - Venous - Lab Draw NO GROWTH AFTER 5 DAYS Anaerobic Blood Culture - Final NO GROWTH AFTER 5 DAYS 03/12/18 16:40 Aerobic Blood Culture - Final Blood - Venous NO GROWTH AFTER 5 DAYS Anaerobic Blood Culture - Final NO GROWTH AFTER 5 DAYS Med Orders - Current: Current Medications Acetaminophen (Tylenol) 650 mg PO Q4H PRN PRN Reason: Pain (Mild 1-3)/fever Calcium Polycarbophil (Fibercon) 625 mg PO 0800,1200,1700 [facility] Last Admin: 03/17/18 17:41 Dose: 625 mg Cyclosporine (Restasis) 0 each EYEBOTH BID [facility] Last Admin: 03/17/18 20:26 Dose: 1 drop Diphenhydramine HCl (Benadryl) 50 mg PO BEDTIME PRN PRN Reason: sleep and allergies Last Admin: 03/17/18 23:51 Dose: 50 mg Ferrous Sulfate (Ferrous Sulfate) 325 mg PO Q48H [facility] Last Admin: 03/16/18 18:00 Dose: 325 mg Piperacillin Sod/Tazobactam (Sod 3.375 gm/ Sodium Chloride) 100 mls @ 200 mls/ hr IV Q6H [facility] Last Infusion: 03/18/18 07:50 Dose: Infused Latanoprost (Xalatan 0.005% [facility] Soln) 0 ml EYERT BEDTIME [facility] Last Admin: 03/17/18 20:27 Dose: 1 drop Metoprolol Succinate (Toprol Xl) 50 mg PO WITHLUNCH [facility] Last Admin: 03/17/18 12:50 Dose: 50 mg Multivitamins/Minerals (I-Cindi) 1 each PO BID [facility] Last Admin: 03/17/18 20:26 Dose: 1 each Nystatin (Nystop) 0 gm TOP DAILY PRN PRN Reason: Rash Last Admin: 03/16/18 21:28 Dose: 1 applic Omeprazole (Omeprazole) 20 mg PO BIDAC [facility] Last Admin: 03/18/18 06:18 Dose: 20 mg Oxycodone/Acetaminophen (Percocet 325-5 Mg) 1 tab PO Q4H PRN PRN Reason: Pain (severe 7-10) Sodium Chloride (Saline Flush) 10 ml FLUSH ASDIRECTED PRN PRN Reason: Keep Vein Open Last Admin: 03/18/18 08:15 Dose: 10 ml Warfarin Sodium (Pharmacy To Dose - Warfarin) 1 dose .XX ASDIRECTED [facility] Zolpidem Tartrate (Ambien) 5 mg PO BEDTIME PRN PRN Reason: Sleep Discontinued Medications Calcium Polycarbophil (Fibercon) 1,250 mg PO TID [facility] Last Admin: 03/13/18 10:04 Dose: 1,250 mg Calcium Polycarbophil (Fibercon) 625 mg PO TID [facility] Last Admin: 03/14/18 20:59 Dose: 625 mg Diphenhydramine HCl (Benadryl) 25 mg IVPUSH ONETIME ONE Stop: 03/12/18 17:14 Last Admin: 03/12/18 17:33 Dose: 25 mg Vancomycin HCl 3 gm/ Sodium (Chloride) 500 mls @ 334 mls/hr IV ONETIME ONE Stop: 03/12/18 18:42 Last Admin: 03/12/18 17:33 Dose: 334 mls/hr Piperacillin Sod/Tazobactam (Sod 3.375 gm/ Sodium Chloride) 100 mls @ 200 mls/ hr IV Q6H [facility] Last Admin: 03/13/18 05:04 Dose: Not Given Vancomycin HCl 1.5 gm/ Sodium (Chloride) 500 mls @ 333.333 mls/hr IV Q8H [facility] Last Admin: 03/13/18 21:06 Dose: Not Given Piperacillin Sod/Tazobactam (Sod 3.375 gm/ Sodium Chloride) 100 mls @ 200 mls/ hr IV Q6H [facility] Last Admin: 03/17/18 09:51 Dose: Not Given Vancomycin HCl 1.5 gm/ Sodium (Chloride) 500 mls @ 333.333 mls/hr IV Q12H [facility] Last Admin: 03/15/18 23:10 Dose: 200 mls/hr Vancomycin HCl (Pharmacy To Dose - Vancomycin) 1 dose .XX ASDIRECTED [facility] Warfarin Sodium (Coumadin) 5 mg PO ONETIME ONE Stop: 03/13/18 14:01 Last Admin: 03/13/18 14:22 Dose: 5 mg Warfarin Sodium (Coumadin) 5 mg PO ONETIME ONE Stop: 03/14/18 14:01 Last Admin: 03/14/18 13:31 Dose: 5 mg Warfarin Sodium (Coumadin) 5 mg PO ONETIME ONE Stop: 03/15/18 14:01 Last Admin: 03/15/18 13:01 Dose: 5 mg Warfarin Sodium (Coumadin) 5 mg PO ONETIME ONE Stop: 03/16/18 14:01 Last Admin: 03/16/18 13:01 Dose: 5 mg Warfarin Sodium (Coumadin) 5 mg PO ONETIME ONE Stop: 03/17/18 14:01 Last Admin: 03/17/18 13:00 Dose: 5 mg - Exam General: Alert, Oriented, Other (Morbidly obese) Neck: Supple Lungs: Clear to Auscultation, Normal Respiratory Effort Cardiovascular: Regular Rate, Regular Rhythm GI/Abdominal Exam: Normal Bowel Sounds, Soft, Non-Tender Extremities: Other (Right lower extremity inner thigh area mild red-brown discoloration, dryness) Neurological: No New Focal Deficit Psy/Mental Status: Alert, Normal Affect, Normal Mood - Problem List & Annotations (1) Cellulitis of right lower extremity SNOMED Code(s): 499699774 Code(s): L03.115 - CELLULITIS OF RIGHT LOWER LIMB Status: Acute Current Visit: No - Problem List Review Problem List Initiated/Reviewed/Updated: Yes - Plan Plan:: The patient is a 52-year-old gentleman with a history of morbid obesity, hypertension, prior DVT. Admitted with right lower extremity redness, drainage, edema. Cellulitis of the right lower extremity Appears to be improving with Zosyn. Vancomycin has been discontinued. Continue with IV Zosyn and switched to oral antibiotics soon Hypertension Controlled with metoprolol History of DVT Continue chronic and clinical correlation with Coumadin, target INR 2-[address] Martino
[2018-03-18] MEDS: Calcium Polycarbophil 625 MG Tab PO SCH ×3 (10:34→17:53)
[2018-03-18] MEDS: cycloSPORINE Ophth Drops U/D Box of 30 EYEBOTH SCH ×2 (10:34→21:01)
[2018-03-18] MEDS: Lutein/Minerals/Vit A,C & E Tab PO SCH ×2 (10:34→21:00)
[2018-03-18] MEDS: Metoprolol Succinate 50 MG Tab.ER PO SCH (12:32)
[2018-03-18] MEDS ORDERED: Warfarin 5 MG Tab PO ONE (14:00)
[2018-03-18] MEDS: Ferrous Sulfate 325 MG Tab PO SCH (18:34)
[2018-03-18] MEDS: Latanoprost 0.005% Ophth Soln 2.5 ML Bottle EYERT SCH (21:01)
[2018-03-18] MEDS: diphenhydrAMINE 25 MG Tab PO PRN (23:56)
[2018-03-19] MEDS: Sodium Chloride 0.9% 10 ML Syringe FLUSH PRN ×2 (01:01→05:57)
[2018-03-19] MEDS: Omeprazole 20 MG Cap.CR PO SCH (05:42)
[2018-03-19] MEDS: Piperacillin/Tazobactam 3.375 GM in Sodium Chloride 0.9% 100 ML IV SCH ×2 (05:42→13:54)
[2018-03-19] MEDS: cycloSPORINE Ophth Drops U/D Box of 30 EYEBOTH SCH (09:22)
[2018-03-19] MEDS: Lutein/Minerals/Vit A,C & E Tab PO SCH (09:22)
[2018-03-19] MEDS: Calcium Polycarbophil 625 MG Tab PO SCH ×2 (09:23→13:53)
--- NOTE | 2018-03-19 10:07 | PCM.DCSUM1 ---
Discharge Summary - Hospital Course Free Text/Narrative:: The patient is a 52-year-old gentleman with a history of morbid obesity, hypertension, prior DVT. Admitted with right lower extremity redness, drainage, edema. Cellulitis of the right lower extremity Appears to be improving with Zosyn. will finish PO Levofloxacin as out pt. Hypertension Controlled with metoprolol History of DVT Continue chronic anticoagulation with Coumadin, target INR 2-3 - Discharge Data Discharge Date: 03/19/18 Discharge Disposition: Home, Self-Care 01 Condition: Good - Discharge Diagnosis/Problem(s) (1) Cellulitis of right lower extremity SNOMED Code(s): 216680455 ICD Code: L03.115 - CELLULITIS OF RIGHT LOWER LIMB Status: Acute Current Visit: No - Patient Instructions Diet: Usual Diet as Tolerated, Weight Loss Diet Activity: As Tolerated - Discharge Plan Prescriptions/Med Rec: Levofloxacin 500 mg PO DAILY #5 tablet Home Medications: Home Meds Latanoprost 1 drop EYERT BEDTIME 04/09/15 [History] Omeprazole 20 mg PO BIDM 04/09/15 [History] cycloSPORINE [Restasis] 1 drop EYEBOTH BID 04/09/15 [History] Acetaminophen [Tylenol] 650 mg PO Q4H PRN #0 tablet 04/15/15 [Rx] Metoprolol Succinate [Toprol XL] 50 mg PO WITHLUNCH 10/28/17 [History] Calcium Polycarbophil [Fibercon] 625 mg PO TID 11/22/17 [History] diphenhydrAMINE [Benadryl] 50 mg PO BEDTIME PRN 11/22/17 [History] Ferrous Sulfate 325 mg PO Q48H 03/12/18 [History] Nystatin [Nystop] 1 applic TOP DAILY PRN 03/12/18 [History] Vit A/Vit C/Vit E/Zinc/Copper [Preservision Areds Softgel] 1 tab PO BID [History] Warfarin Sodium [Jantoven] 5 mg PO .THU...SAT 03/12/18 [History] Warfarin Sodium [Jantoven] 7.5 mg PO .MO.THU.Thu03/12/18 [History] oxyCODONE HCl/Acetaminophen [Oxycodone-Acetaminophen 5-325] 1 tab PO Q4H PRN 09/19 [History] Levofloxacin 500 mg PO DAILY #5 tablet 03/19/18 [Rx] Patient Handouts: Cellulitis, Adult, [id number] Referrals: Kellie Potts PA-C [Primary Care Provider] - (in 3-4 days) - Discharge Summary/Plan Comment DC Time >30 min.: No - Patient Data Vitals - Most Recent: Last Vital Signs Temp 37.1 C 03/19/18 00:00 Pulse 65 03/19/18 00:00 Resp 20 03/19/18 00:00 BP 134/71 03/19/18 00:00 Pulse Ox 96 03/19/18 00:00 Weight - Most Recent: 213.687 kg I&O - Last 24 hours: Intake & Output 03/18/18 03/19/18 03/19/18 22:59 06:59 14:59 Intake Total 1000 550 100 Output Total 1800 1450 Balance -800 -900 100 Lab Results - Last 24 hrs: Laboratory Results - last 24 hr 03/19/18 Range/Units 05:40 PT 22.0 H (9.0-12.0) SEC INR 2.3 H (0.9-1.2) Med Orders - Current: Current Medications Acetaminophen (Tylenol) 650 mg PO Q4H PRN PRN Reason: Pain (Mild 1-3)/fever Calcium Polycarbophil (Fibercon) 625 mg PO 0800,1200,1700 [facility] Last Admin: 03/19/18 09:23 Dose: Not Given Cyclosporine (Restasis) 0 each EYEBOTH BID [facility] Last Admin: 03/19/18 09:22 Dose: 1 drop Diphenhydramine HCl (Benadryl) 50 mg PO BEDTIME PRN PRN Reason: sleep and allergies Last Admin: 03/18/18 23:56 Dose: 50 mg Ferrous Sulfate (Ferrous Sulfate) 325 mg PO Q48H [facility] Last Admin: 03/18/18 18:34 Dose: 325 mg Piperacillin Sod/Tazobactam (Sod 3.375 gm/ Sodium Chloride) 100 mls @ 200 mls/ hr IV Q6H [facility] Last Infusion: 03/19/18 07:05 Dose: Infused Latanoprost (Xalatan 0.005% [facility] Soln) 0 ml EYERT BEDTIME [facility] Last Admin: 03/18/18 21:01 Dose: 1 drop Metoprolol Succinate (Toprol Xl) 50 mg PO WITHLUNCH [facility] Last Admin: 03/18/18 12:32 Dose: 50 mg Multivitamins/Minerals (I-Cindi) 1 each PO BID [facility] Last Admin: 03/19/18 09:22 Dose: 1 each Nystatin (Nystop) 0 gm TOP DAILY PRN PRN Reason: Rash Last Admin: 03/16/18 21:28 Dose: 1 applic Omeprazole (Omeprazole) 20 mg PO BIDAC [facility] Last Admin: 03/19/18 05:42 Dose: 20 mg Oxycodone/Acetaminophen (Percocet 325-5 Mg) 1 tab PO Q4H PRN PRN Reason: Pain (severe 7-10) Sodium Chloride (Saline Flush) 10 ml FLUSH ASDIRECTED PRN PRN Reason: Keep Vein Open Last Admin: 03/19/18 05:57 Dose: 10 ml Warfarin Sodium (Pharmacy To Dose - Warfarin) 1 dose .XX ASDIRECTED [facility] Zolpidem Tartrate (Ambien) 5 mg PO BEDTIME PRN PRN Reason: Sleep Discontinued Medications Calcium Polycarbophil (Fibercon) 1,250 mg PO TID [facility] Last Admin: 03/13/18 10:04 Dose: 1,250 mg Calcium Polycarbophil (Fibercon) 625 mg PO TID [facility] Last Admin: 03/14/18 20:59 Dose: 625 mg Diphenhydramine HCl (Benadryl) 25 mg IVPUSH ONETIME ONE Stop: 03/12/18 17:14 Last Admin: 03/12/18 17:33 Dose: 25 mg Vancomycin HCl 3 gm/ Sodium (Chloride) 500 mls @ 334 mls/hr IV ONETIME ONE Stop: 03/12/18 18:42 Last Admin: 03/12/18 17:33 Dose: 334 mls/hr Piperacillin Sod/Tazobactam (Sod 3.375 gm/ Sodium Chloride) 100 mls @ 200 mls/ hr IV Q6H [facility] Last Admin: 03/13/18 05:04 Dose: Not Given Vancomycin HCl 1.5 gm/ Sodium (Chloride) 500 mls @ 333.333 mls/hr IV Q8H [facility] Last Admin: 03/13/18 21:06 Dose: Not Given Piperacillin Sod/Tazobactam (Sod 3.375 gm/ Sodium Chloride) 100 mls @ 200 mls/ hr IV Q6H [facility] Last Admin: 03/17/18 09:51 Dose: Not Given Vancomycin HCl 1.5 gm/ Sodium (Chloride) 500 mls @ 333.333 mls/hr IV Q12H [facility] Last Admin: 03/15/18 23:10 Dose: 200 mls/hr Vancomycin HCl (Pharmacy To Dose - Vancomycin) 1 dose .XX ASDIRECTED [facility] Warfarin Sodium (Coumadin) 5 mg PO ONETIME ONE Stop: 03/13/18 14:01 Last Admin: 03/13/18 14:22 Dose: 5 mg Warfarin Sodium (Coumadin) 5 mg PO ONETIME ONE Stop: 03/14/18 14:01 Last Admin: 03/14/18 13:31 Dose: 5 mg Warfarin Sodium (Coumadin) 5 mg PO ONETIME ONE Stop: 03/15/18 14:01 Last Admin: 03/15/18 13:01 Dose: 5 mg Warfarin Sodium (Coumadin) 5 mg PO ONETIME ONE Stop: 03/16/18 14:01 Last Admin: 03/16/18 13:01 Dose: 5 mg Warfarin Sodium (Coumadin) 5 mg PO ONETIME ONE Stop: 03/17/18 14:01 Last Admin: 03/17/18 13:00 Dose: 5 mg Warfarin Sodium (Coumadin) 5 mg PO ONETIME ONE Stop: 03/18/18 14:01 Last Admin: 03/18/18 13:21 Dose: 5 mg *Q Meaningful Use (DIS) - VTE *Q VTE Anticoagulation Contraindications: Alternative [place] Request PT
[2018-03-19] MEDS: Metoprolol Succinate 50 MG Tab.ER PO SCH (13:53)
[2018-03-19] MEDS ORDERED: Warfarin 5 MG Tab PO ONE (14:15)
[2018-03-19 14:49] VITALS: BP 128/70
== END 2018-03-19 14:00 | disposition home health service (06) | DRG 863 ==
LOC: DL.ED 15:48 → DL.MS 18:01 → UNDOADMIN 18:01 → DL.MS 19:19
PROVIDERS: ADMIT Internal Medicine; ATTEND Internal Medicine
DX: T81.4XXA Infection following a procedure, initial encounter (principal); L03.115 Cellulitis of right lower limb; Z68.45 Body mass index [BMI] 70 or greater, adult; Y83.2 Surgical operation with anastomosis, bypass or graft as the cause of abnormal reaction of the patient, or of later complication, without mention of misadventure at the time of the procedure; R79.1 Abnormal coagulation profile; B95.5 Unspecified streptococcus as the cause of diseases classified elsewhere; I10 Essential (primary) hypertension; K21.9 Gastro-esophageal reflux disease without esophagitis; M19.90 Unspecified osteoarthritis, unspecified site; E66.01 Morbid (severe) obesity due to excess calories; H40.9 Unspecified glaucoma; H54.7 Unspecified visual loss; H04.129 Dry eye syndrome of unspecified lacrimal gland; Z88.1 Allergy status to other antibiotic agents; L53.9 Erythematous condition, unspecified; R50.9 Fever, unspecified; R11.0 Nausea; Z86.14 Personal history of Methicillin resistant Staphylococcus aureus infection; Z79.01 Long term (current) use of anticoagulants; Z87.01 Personal history of pneumonia (recurrent); Z79.899 Other long term (current) drug therapy; Z86.718 Personal history of other venous thrombosis and embolism; Z28.21 Immunization not carried out because of patient refusal
CPT/HCPCS: 36415; 80053; 83605; 85025; 85610; 86140; 87040 ×2; 96365; 96366; 96375; 99284; 99285; J1200; J3370; J7040; J7050; 80048; 80202; 82565; 85027; 87070; 87077; 87186; A9270-GY; J2543

== ENCOUNTER 2018-04-01 20:31 | Inpatient (IN) | payer MEDICARE, BC ==
[2018-04-01] MEDS ORDERED: Piperacillin/Tazobactam 3.375 GM in Sodium Chloride 0.9% 100 ML IV ONE (22:02)
--- NOTE | 2018-04-01 22:06 | EDM.PDOC ---
ED HPI GENERAL MEDICAL PROBLEM - General Chief Complaint: Skin Complaint Stated Complaint: CELLULITUS Time Seen by Provider: 04/01/18 22:03 Source of Information: Reports: Patient History Limitations: Reports: No Limitations - History of Present Illness INITIAL COMMENTS - FREE TEXT/NARRATIVE: was admitted here 2 weeks ago for same. got d/c was doing fine till 2 days ago right thigh started swelling and red - Related Data Allergies Allergy/AdvReac Type Severity Reaction Status Date / Time azithromycin [From Zithromax] Allergy Intermediate Other Verified 03/12/18 18:11 Home Meds: Home Meds Latanoprost 1 drop EYERT BEDTIME 04/09/15 [History] Omeprazole 20 mg PO BIDM 04/09/15 [History] cycloSPORINE [Restasis] 1 drop EYEBOTH BID 04/09/15 [History] Acetaminophen [Tylenol] 650 mg PO Q4H PRN #0 tablet 04/15/15 [Rx] Metoprolol Succinate [Toprol XL] 50 mg PO WITHLUNCH 10/28/17 [History] Calcium Polycarbophil [Fibercon] 625 mg PO TID 11/22/17 [History] diphenhydrAMINE [Benadryl] 50 mg PO BEDTIME PRN 11/22/17 [History] Ferrous Sulfate 325 mg PO Q48H 03/12/18 [History] Nystatin [Nystop] 1 applic TOP DAILY PRN 03/12/18 [History] Vit A/Vit C/Vit E/Zinc/Copper [Preservision Areds Softgel] 1 tab PO BID [History] Warfarin Sodium [Jantoven] 5 mg PO .THU...Thu03/12/18 [History] Warfarin Sodium [Jantoven] 7.5 mg PO .MO.THU.Thu03/12/18 [History] Past Medical History HEENT History: Reports: Glaucoma, Impaired Vision Other HEENT History: dry eyes Cardiovascular History: Reports: Hypertension Respiratory History: Reports: Pneumonia, Recurrent Gastrointestinal History: Reports: GERD Genitourinary History: Reports: None Musculoskeletal History: Reports: Arthritis, Fracture Neurological History: Reports: Concussion Psychiatric History: Reports: None Endocrine/Metabolic History: Reports: Obesity/BMI 30+ Hematologic History: Reports: Blood Transfusion(s) Immunologic History: Reports: None Oncologic (Cancer) History: Reports: None Dermatologic History: Reports: Cellulitis - Infectious Disease History Infectious Disease History: Reports: Chicken Pox, Measles, MRSA - Past Surgical History Head Surgeries/Procedures: Reports: None HEENT Surgical History: Reports: None Cardiovascular Surgical History: Reports: None Respiratory Surgical History: Reports: None Endocrine Surgical History: Reports: None Neurological Surgical History: Reports: None Musculoskeletal Surgical History: Reports: Other (See Below) Other Musculoskeletal Surgeries/Procedures:: right keys skin graft Dermatological Surgical History: Reports: Skin Graft Social & Family History - Family History Family Medical History: Noncontributory Cardiac: Reports: Heart Failure Oncologic: Reports: Other (See Below) Other Oncologic Family History: throat - Tobacco Use Smoking Status *Q: Current Every Day Smoker Years of Tobacco use: 40 Packs/Tins Daily: 1 - Caffeine Use Caffeine Use: Reports: None - Recreational Drug Use Recreational Drug Use: No - Living Situation & Occupation Living situation: Reports: Single ED ROS GENERAL - Review of Systems Review Of Systems: ROS reveals no pertinent complaints other than HPI. ED EXAM, SKIN/RASH Exam: See Below Exam Limited By: No Limitations General Appearance: Alert, WD/WN, Mild Distress, Other (discomfort) Ears: Hearing Grossly Normal Throat/Mouth: Normal Voice, No Airway Compromise Head: Atraumatic Neck: Non-Tender, Full Range of Motion Respiratory/Chest: No Respiratory Distress Cardiovascular: Regular Rate, Rhythm GI/Abdominal: Soft, Non-Tender Extremities: Other (right thigh cellulitis with swelling erythema tender, NV wnl ) Neurological: Alert, Oriented, Normal Cognition, Normal Gait, No Motor/Sensory Deficits Psychiatric: Normal Affect, Normal Mood Skin: Warm, Dry, Normal Color Location, Skin: Lower Extremity, Right Characteristics: Erythematous Associated features: Warmth, Tenderness, Swelling, Inflammation Lymphatic: No Adenopathy Course - Vital Signs Last Recorded V/S: Last Vital Signs Temp 35.9 C 04/01/18 21:06 Pulse 87 04/01/18 21:06 Resp 20 04/01/18 21:06 BP 142/59 H 04/01/18 21:06 Pulse Ox 97 04/01/18 21:06 - Orders/Labs/Meds Labs: Laboratory Tests 04/01/18 04/01/18 04/01/18 Range/Units 21:54 21:54 21:54 WBC 12.9 H (5.0-10.0) 10^3/uL RBC 4.45 L (4.6-6.2) 10^6/uL Hgb 11.5 L (14.0-18.0) g/dL Hct 36.8 L (40.0-54.0) % MCV 82.7 (80-100) fL MCH 25.8 L (27.0-34.0) pg MCHC 31.3 L (33.0-35.0) g/dL Plt Count 288 (150-450) 10^3/uL Neut % (Auto) 81.9 H (42.2-75.2) % Lymph % (Auto) 9.1 L (20.5-50.1) % [place] % (Auto) 7.5 (2-8) % Eos % (Auto) 1.3 (1.0-3.0) % Baso % (Auto) 0.2 (0.0-1.0) % Sodium 139 (135-145) mmol/L Potassium 4.2 (3.6-5.0) mmol/L Chloride 105 (101-111) mmol/L Carbon Dioxide 27.0 (21.0-31.0) mmol/L Anion Gap 11.2 BUN 20 H (7-18) mg/dL Creatinine 1.1 (0.6-1.3) mg/dL Est Cr Clr Drug Dosing 76.00 mL/min Estimated GFR (MDRD) > 60 BUN/Creatinine Ratio 18.18 Glucose 107 H (74-105) mg/dL Lactic Acid 1.4 (0.5-2.2) mmol/L Calcium 8.6 (8.4-10.2) mg/dl Total Bilirubin 0.9 (0.2-1.0) mg/dL AST 19 (10-42) IU/L ALT 12 (10-60) IU/L Alkaline Phosphatase 56 (42-121) IU/L Total Protein 7.0 (6.7-8.2) g/dl Albumin 3.3 (3.2-5.5) g/dl Globulin 3.7 Albumin/Globulin Ratio 0.89 Meds: Medications Discontinued Medications Generic Name Dose Route Start Last Admin Trade Name Freq PRN Reason Stop Dose Admin Piperacillin Sod/Tazobactam 100 mls @ 200 mls/hr 04/01/18 22:02 04/01/18 22: 19 Sod 3.375 gm/ Sodium Chloride IV 04/01/18 22:31 100 mls/hr ONETIME ONE Administration - Re-Assessments/Exams Free Text/Narrative Re-Assessment/Exam: 04/01/18 22:[address] Lora who kindly admitted pt for observation Departure - Departure Time of Disposition: 22:47 Disposition: Refer to Observation Condition: Fair Clinical Impression: Cellulitis of right thigh - Discharge Information Forms: ED Department Discharge
[2018-04-01 22:20] LABS: CHLORIDE,CL 105 mmol/L (101-111); SODIUM,NA 139 mmol/L (135-145)
[2018-04-02] MEDS ORDERED: Nystatin Topical Powder 30 GM Bottle TOP PRN (00:06)
[2018-04-02] MEDS ORDERED: Vancomycin 2 GM in Sodium Chloride 0.9% 500 ML IV SCH (00:15)
[2018-04-02] MEDS ORDERED: Warfarin 5 MG Tab PO SCH ×2 (00:15)
--- NOTE | 2018-04-02 00:19 | PCM.HP ---
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 He fell on his right knee on 10/18/17 and developed a right knee prepatellar hematoma (of note, he was on coumadin for DVT). He was treated for cellulitis of right knee area and medial distal thigh in November 2017. 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 He continued following up as outpatient with plastic surgery. His wound was noted to have enough granulation and decision to proceed with skin grafting was made. He was taken to the OR on 01/27/18 where he underwent full thickness skin graft R abdomen to R knee. He was noted to have cellulitis on medial distal right thigh and medial right knee area and was started on IV antibiotics. He was discharged on 01/29/2018 and has followed up with Dr. Mar in the plastic surgery clinic. Yesterday, he noticed swelling and redness of the right eye. This has grown larger in area and prompted him to come to the ED. He had no fever, no chills, no rigors, no pain in the right thigh, and no discharge from the area of redness and swelling. He has the chronic wound from skin graft around the knee. The wound showed poor healing since the graft was placed. Surgical wound has had yellowish discharge. Is being dressed with Vaseline dressing by home health care. SH: Nonsmoker, does not drink alcohol. - Related Data Allergies/Adverse Reactions: Allergies Allergy/AdvReac Type Severity Reaction Status Date / Time azithromycin [From Zithromax] Allergy Intermediate Other Verified 03/12/18 18:11 Home Medications: Home Meds Latanoprost 1 drop EYERT BEDTIME 04/09/15 [History] Omeprazole 20 mg PO BIDM 04/09/15 [History] cycloSPORINE [Restasis] 1 drop EYEBOTH BID 04/09/15 [History] Acetaminophen [Tylenol] 650 mg PO Q4H PRN #0 tablet 04/15/15 [Rx] Metoprolol Succinate [Toprol XL] 50 mg PO WITHLUNCH 10/28/17 [History] Calcium Polycarbophil [Fibercon] 625 mg PO TID 11/22/17 [History] diphenhydrAMINE [Benadryl] 50 mg PO BEDTIME PRN 11/22/17 [History] Ferrous Sulfate 325 mg PO Q48H 03/12/18 [History] Nystatin [Nystop] 1 applic TOP DAILY PRN 03/12/18 [History] Vit A/Vit C/Vit E/Zinc/Copper [Preservision Areds Softgel] 1 tab PO BID [History] Warfarin Sodium [Jantoven] 5 mg PO .SUN...Thu03/12/18 [History] Warfarin Sodium [Jantoven] 7.5 mg PO .MO.THU.Thu03/12/18 [History] Past Medical History HEENT History: Reports: Glaucoma, Impaired Vision Other HEENT History: dry eyes Cardiovascular History: Reports: Hypertension Respiratory History: Reports: Pneumonia, Recurrent Gastrointestinal History: Reports: GERD Genitourinary History: Reports: None Musculoskeletal History: Reports: Arthritis, Fracture Neurological History: Reports: Concussion Psychiatric History: Reports: None Endocrine/Metabolic History: Reports: Obesity/BMI 30+ Hematologic History: Reports: Blood Transfusion(s) Immunologic History: Reports: None Oncologic (Cancer) History: Reports: None Dermatologic History: Reports: Cellulitis - Infectious Disease History Infectious Disease History: Reports: Chicken Pox, Measles, MRSA - Past Surgical History Head Surgeries/Procedures: Reports: None HEENT Surgical History: Reports: None Cardiovascular Surgical History: Reports: None Respiratory Surgical History: Reports: None Endocrine Surgical History: Reports: None Neurological Surgical History: Reports: None Musculoskeletal Surgical History: Reports: Other (See Below) Other Musculoskeletal Surgeries/Procedures:: right keys skin graft Dermatological Surgical History: Reports: Skin Graft Social & Family History - Family History Family Medical History: Noncontributory Cardiac: Reports: Heart Failure Oncologic: Reports: Other (See Below) Other Oncologic Family History: throat - Tobacco Use Smoking Status *Q: Current Every Day Smoker Years of Tobacco use: 40 Packs/Tins Daily: 1 Used Tobacco, but Quit: No Second Hand Smoke Exposure: No - Caffeine Use Caffeine Use: Reports: None - Recreational Drug Use Recreational Drug Use: No - Living Situation & Occupation Living situation: Reports: Single H&P Review of Systems - Review of Systems: Review Of Systems: See Below General: Denies: Fever, Chills HEENT: Reports: No Symptoms Pulmonary: Reports: No Symptoms Cardiovascular: Reports: No Symptoms Gastrointestinal: Reports: No Symptoms Genitourinary: Reports: No Symptoms Musculoskeletal: Reports: No Symptoms Skin: Reports: Other (Redness and swelling of left thigh) Psychiatric: Reports: No Symptoms Neurological: Reports: No Symptoms Exam - Exam Exam: See Below - Vital Signs Vital Signs: Last Vital Signs Temp 36.2 C 04/01/18 22:58 Pulse 72 04/01/18 22:58 Resp 18 04/01/18 22:58 BP 136/66 04/01/18 22:58 Pulse Ox 97 04/01/18 22:58 Weight: 213.098 kg - Exam General: Alert, Oriented HEENT: Conjunctiva Clear Neck: Supple, Trachea Midline Lungs: Clear to Auscultation Cardiovascular: Regular Rate, Regular Rhythm GI/Abdominal Exam: Normal Bowel Sounds Extremities: Redness (Redness and swelling of the right thigh, nontender. Surgical wound at the right knee was examined, yellowish discharge from the wound.), Other - Patient Data Lab Results Last 24 hrs: Laboratory Results - last 24 hr 04/01/18 04/01/18 04/01/18 Range/Units 21:54 21:54 21:54 WBC 12.9 H (5.0-10.0) 10^3/uL RBC 4.45 L (4.6-6.2) 10^6/uL Hgb 11.5 L (14.0-18.0) g/dL Hct 36.8 L (40.0-54.0) % MCV 82.7 (80-100) fL MCH 25.8 L (27.0-34.0) pg MCHC 31.3 L (33.0-35.0) g/dL Plt Count 288 (150-450) 10^3/uL Neut % (Auto) 81.9 H (42.2-75.2) % Lymph % (Auto) 9.1 L (20.5-50.1) % [place] % (Auto) 7.5 (2-8) % Eos % (Auto) 1.3 (1.0-3.0) % Baso % (Auto) 0.2 (0.0-1.0) % Sodium 139 (135-145) mmol/L Potassium 4.2 (3.6-5.0) mmol/L Chloride 105 (101-111) mmol/L Carbon Dioxide 27.0 (21.0-31.0) mmol/L Anion Gap 11.2 BUN 20 H (7-18) mg/dL Creatinine 1.1 (0.6-1.3) mg/dL Est Cr Clr Drug Dosing 76.00 mL/min Estimated GFR (MDRD) > 60 BUN/Creatinine Ratio 18.18 Glucose 107 H (74-105) mg/dL Lactic Acid 1.4 (0.5-2.2) mmol/L Calcium 8.6 (8.4-10.2) mg/dl Total Bilirubin 0.9 (0.2-1.0) mg/dL AST 19 (10-42) IU/L ALT 12 (10-60) IU/L Alkaline Phosphatase 56 (42-121) IU/L Total Protein 7.0 (6.7-8.2) g/dl Albumin 3.3 (3.2-5.5) g/dl Globulin 3.7 Albumin/Globulin Ratio 0.89 Result Diagrams: 04/01/18 21:54 04/01/18 21:54 Problem List Initiated/Reviewed/Updated: Yes Orders Last 24hrs: Active Orders 24 hr Category Date Time Status Patient Status [ADT] Routine ADT 04/01/18 23:56 Ordered Ambulate [RC] ASDIRECTED Care 04/01/18 23:56 Ordered Intake and Output [RC] QSHIFT Care 04/01/18 23:58 Ordered Oxygen Therapy [RC] PRN Care 04/01/18 23:56 Ordered Peripheral IV Care [RC] . DIRECTED Care 04/02/18 00:04 Ordered Up With Assistance [RC] ASDIRECTED Care 04/01/18 23:56 Ordered Up ad Nina [RC] ASDIRECTED Care 04/01/18 23:56 Ordered Up to Chair [RC] ASDIRECTED Care 04/01/18 23:56 Ordered VTE/DVT Education [RC] PER UNIT ROUTINE Care 04/01/18 23:56 Ordered Vital Signs [RC] Q4H Care 04/01/18 23:56 Ordered Wound Care [RC] Q12H Care 04/02/18 00:11 Ordered Consult to Wound Care Services [CONS] Routine Cons 04/02/18 00:11 Ordered PT Evaluation and Treatment [CONS] Routine Cons 04/02/18 00:03 Ordered Regular Diet [DIET] Diet 04/02/18 Breakfast Ordered BMP [BASIC METABOLIC PANEL,BMP] [CHEM] AM Lab 04/02/18 05:11 Ordered BMP [BASIC METABOLIC PANEL,BMP] [CHEM] AM Lab 04/03/18 05:11 Ordered BMP [BASIC METABOLIC PANEL,BMP] [CHEM] AM Lab 04/04/18 05:11 Ordered BMP [BASIC METABOLIC PANEL,BMP] [CHEM] AM Lab 04/05/18 05:11 Ordered BMP [BASIC METABOLIC PANEL,BMP] [CHEM] AM Lab 04/06/18 05:11 Ordered BMP [BASIC METABOLIC PANEL,BMP] [CHEM] AM Lab 04/07/18 05:11 Ordered BMP [BASIC METABOLIC PANEL,BMP] [CHEM] AM Lab 04/08/18 05:11 Ordered CBC WITH AUTO DIFF [HEME] AM Lab 04/02/18 05:11 Ordered CBC WITH AUTO DIFF [HEME] AM Lab 04/03/18 05:11 Ordered CBC WITH AUTO DIFF [HEME] AM Lab 04/04/18 05:11 Ordered CBC WITH AUTO DIFF [HEME] AM Lab 04/05/18 05:11 Ordered CBC WITH AUTO DIFF [HEME] AM Lab 04/06/18 05:11 Ordered CBC WITH AUTO DIFF [HEME] AM Lab 04/07/18 05:11 Ordered CBC WITH AUTO DIFF [HEME] AM Lab 04/08/18 05:11 Ordered CULTURE BLOOD [BC] Stat Lab 04/02/18 00:06 Ordered CULTURE BLOOD [BC] Stat Lab 04/02/18 00:06 Ordered CULTURE WOUND [RM] Stat Lab 04/02/18 00:03 Ordered INR,PT,PROTHROMBIN TIME [COAG] Routine Lab 04/02/18 00:09 Ordered Acetaminophen [Tylenol] Med 04/02/18 00:03 Ordered 650 mg PO Q4H PRN Calcium Polycarbophil [Fibercon] Med 04/02/18 09:00 Ordered 625 mg PO TID Enoxaparin [Lovenox] Med 04/02/18 09:00 Ordered 40 mg SUBCUT DAILY Ferrous Sulfate Med 04/02/18 00:15 Ordered 325 mg PO Q48H Latanoprost [Xalatan 0.005% Ophth Soln] Med 04/02/18 21:00 Ordered 1 drop EYERT BEDTIME Metoprolol Succinate [Toprol XL] Med 04/02/18 12:00 Ordered 50 mg PO WITHLUNCH Nystatin [Nystop] Med 04/02/18 00:06 Ordered 1 applic TOP DAILY PRN Omeprazole Med 04/02/18 08:00 Ordered 20 mg PO BIDM Sodium Chloride 0.9% [Saline Flush] Med 04/02/18 00:03 Ordered 10 ml FLUSH ASDIRECTED PRN Vancomycin 2 gm Med 04/02/18 00:15 Ordered Sodium Chloride 0.9% [Normal Saline] 500 ml IV Q12H Vancomycin Pharmacy to Dose [Pharmacy to Dose - Med 04/02/18 00:15 Ordered Vancomycin] 1 dose .XX ASDIRECTED Vit A/Vit C/Vit E/Zinc/Copper [Preservision Areds Med 04/02/18 09:00 Ordered Softgel] 1 tab PO BID Warfarin [Coumadin] Med 04/02/18 00:15 Ordered 5 mg PO ...THU Warfarin [Coumadin] Med 04/02/18 00:15 Ordered 7.5 mg PO . cycloSPORINE [Restasis] Med 04/02/18 09:00 Ordered 1 drop EYEBOTH BID diphenhydrAMINE [Benadryl] Med 04/02/18 00:06 Ordered 50 mg PO BEDTIME PRN Blood Culture x2 Reflex Set [OM.PC] Stat Oth 04/02/18 00:03 Ordered Peripheral IV Insertion Adult [OM.PC] Routine Oth 04/02/18 00:03 Ordered Saline Lock Insert [OM.PC] Routine Oth 04/02/18 00:03 Ordered Wound Care Education [Wound Management Education] [OM. Oth 04/02/18 00:11 Ordered PC] Routine Resuscitation Status Routine Resus Stat 04/01/18 23:56 Ordered Medication Orders Acetaminophen (Tylenol) 650 mg PO Q4H PRN PRN Reason: Pain (Mild 1-3)/fever Calcium Polycarbophil (Fibercon) 625 mg PO TID FERNANDO Cyclosporine (Restasis) each EYEBOTH BID FERNANDO Diphenhydramine HCl (Benadryl) 50 mg PO BEDTIME PRN PRN Reason: sleep and allergies Enoxaparin Sodium (Lovenox) 40 mg SUBCUT DAILY [facility] Ferrous Sulfate (Ferrous Sulfate) 325 mg PO Q48H [facility] Vancomycin HCl 2 gm/ Sodium (Chloride) 500 mls @ 334 mls/hr IV Q12H [facility] Latanoprost (Xalatan 0.005% Ophth Soln) ml EYERT BEDTIME [facility] Metoprolol Succinate (Toprol Xl) 50 mg PO WITHLUNCH [facility] Non-Formulary Medication (Vit A/Vit C/Vit E/Zinc/Copper [Preservision Areds Softgel]) 1 tab PO BID [facility] Nystatin (Nystop) gm TOP DAILY PRN PRN Reason: Rash Omeprazole (Omeprazole) 20 mg PO BIDM [facility] Sodium Chloride (Saline Flush) 10 ml FLUSH ASDIRECTED PRN PRN Reason: Keep Vein Open Vancomycin HCl (Pharmacy To Dose - Vancomycin) 1 dose .XX ASDIRECTED [facility] Warfarin Sodium (Coumadin) 5 mg PO ...SAT [facility] Warfarin Sodium (Coumadin) 7.5 mg PO ..THU.THU [facility] Assessment/Plan Comment:: 52-year-old with morbid obesity, glaucoma, GERD who presents with left lower extremity cellulitis and a slowly healing surgical wound. #Cellulitis plus possibly infected surgical wound Elevated WBC count, possible seropurulent material from the surgical wound Check blood cultures, wound swab Start IV vancomycin plus IV Zosyn; was switched to IV Ceftaroline tomorrow if available Trend WBC daily Tylenol when necessary for fever Monitor vital signs closely #History of DVT on Coumadin Check INR Continue home dose of Coumadin for now #Glaucoma Stable Continue home medications #GERD Continue omeprazole #DVT prophylaxis On Coumadin #CODE STATUS Full code
[2018-04-02] MEDS: Vancomycin 2 GM in Sodium Chloride 0.9% 500 ML IV SCH ×3 (00:52→16:53)
[2018-04-02] MEDS: Ferrous Sulfate 325 MG Tab PO SCH (00:53)
[2018-04-02] MEDS: diphenhydrAMINE 25 MG Tab PO PRN (01:12)
[2018-04-02 06:45] LABS: CHLORIDE,CL 106 mmol/L (101-111); SODIUM,NA 140 mmol/L (135-145)
[2018-04-02] MEDS ORDERED: Non-Formulary Medication 1 Each (Vit A/Vit C/Vit E/Zinc/Copper [Preservision Areds Softgel PO SCH (09:00)
[2018-04-02] MEDS: Calcium Polycarbophil 625 MG Tab PO SCH ×3 (09:21→21:07)
[2018-04-02] MEDS: Enoxaparin 40 MG/0.4 ML Syringe SUBCUT SCH ×2 (09:21→09:49)
[2018-04-02] MEDS: cycloSPORINE Ophth Drops U/D Box of 30 EYEBOTH SCH ×2 (09:22→21:07)
[2018-04-02] MEDS: Omeprazole 20 MG Cap.CR PO SCH ×2 (09:22→17:03)
[2018-04-02] MEDS: Metoprolol Succinate 50 MG Tab.ER PO SCH (12:38)
[2018-04-02] MEDS: Piperacillin/Tazobactam 3.375 GM in Sodium Chloride 0.9% 100 ML IV SCH ×3 (12:52→23:57)
[2018-04-02] MEDS ORDERED: Warfarin 2.5 MG Tab PO ONE (14:00)
[2018-04-02] MEDS: Lutein/Minerals/Vit A,C & E Tab PO SCH (21:07)
[2018-04-02] MEDS: Latanoprost 0.005% Ophth Soln 2.5 ML Bottle EYERT SCH (21:08)
[2018-04-02] MEDS: Sodium Chloride 0.9% 10 ML Syringe FLUSH PRN (23:57)
[2018-04-03] MEDS: diphenhydrAMINE 25 MG Tab PO PRN (00:06)
[2018-04-03] MEDS: Sodium Chloride 0.9% 10 ML Syringe FLUSH PRN ×6 (01:01→17:39)
[2018-04-03] MEDS: Vancomycin 2 GM in Sodium Chloride 0.9% 500 ML IV SCH ×2 (01:03→09:47)
[2018-04-03] MEDS: Piperacillin/Tazobactam 3.375 GM in Sodium Chloride 0.9% 100 ML IV SCH ×3 (06:07→17:38)
[2018-04-03] MEDS: Omeprazole 20 MG Cap.CR PO SCH ×2 (08:30→17:38)
[2018-04-03 08:53] LABS: CHLORIDE,CL 105 mmol/L (101-111); SODIUM,NA 139 mmol/L (135-145)
[2018-04-03] MEDS: Calcium Polycarbophil 625 MG Tab PO SCH ×3 (09:29→22:02)
[2018-04-03] MEDS: Lutein/Minerals/Vit A,C & E Tab PO SCH ×2 (09:29→22:02)
[2018-04-03] MEDS: cycloSPORINE Ophth Drops U/D Box of 30 EYEBOTH SCH ×2 (09:29→22:03)
--- NOTE | 2018-04-03 10:15 | PCM.PN ---
- General Info Date of Service: 04/03/18 Admission Dx/Problem (Free Text): Admission Diagnosis/Problem Admission Diagnosis/Problem Cellulitis Subjective Update: 52-year-old male with a past medical history of morbid obesity, lower,, gastroesophageal reflux disease, DVT on chronic anticoagulation with Coumadin, chronic right knee wound status skin grafting who presents with redness and swelling of the right thigh. Being managed for cellulitis of the right thing and possibly infected right thigh surgical wound. Has no new complaints this morning. Thigh redness and swelling has improved. Yellowish discharge from surgical wound has also decreased. No fever, no chills, no chest pain, no SOB. - Review of Systems General: Reports: No Symptoms HEENT: Reports: No Symptoms Pulmonary: Reports: No Symptoms Cardiovascular: Reports: No Symptoms Gastrointestinal: Reports: No Symptoms Genitourinary: Reports: No Symptoms Musculoskeletal: Reports: Other (right thigh redness and swellign improved. ) Neurological: Reports: No Symptoms Psychiatric: Reports: No Symptoms - Patient Data Vitals - Most Recent: Last Vital Signs Temp 36.6 C 04/03/18 07:22 Pulse 58 L 04/03/18 07:22 Resp 20 04/03/18 07:22 BP 128/63 04/03/18 07:22 Pulse Ox 95 04/03/18 07:22 Weight - Most Recent: 213.098 kg I&O - Last 24 Hours: Intake & Output 04/02/18 04/03/18 04/03/18 22:59 06:59 14:59 Intake Total 1194 808 Output Total 600 1300 Balance 594 -492 Lab Results Last 24 Hours: Laboratory Results - last 24 hr 04/02/18 04/03/18 04/03/18 Range/Units 06:10 08:30 08:30 WBC 8.5 (5.0-10.0) 10^3/uL RBC 4.42 L (4.6-6.2) 10^6/uL Hgb 11.4 L (14.0-18.0) g/dL Hct 36.6 L (40.0-54.0) % MCV 82.8 (80-100) fL MCH 25.8 L (27.0-34.0) pg MCHC 31.1 L (33.0-35.0) g/dL Plt Count 248 (150-450) 10^3/uL Neut % (Auto) 74.3 (42.2-75.2) % Lymph % (Auto) 12.2 L (20.5-50.1) % [place] % (Auto) 9.4 H (2-8) % Eos % (Auto) 3.9 H (1.0-3.0) % Baso % (Auto) 0.2 (0.0-1.0) % PT 25.1 H (9.0-12.0) SEC INR 2.6 H (0.9-1.2) Sodium 139 (135-145) mmol/L Potassium 3.9 (3.6-5.0) mmol/L Chloride 105 (101-111) mmol/L Carbon Dioxide 28.0 (21.0-31.0) mmol/L Anion Gap 9.9 BUN 15 (7-18) mg/dL Creatinine 1.0 (0.6-1.3) mg/dL Est Cr Clr Drug Dosing 86.41 mL/min Estimated GFR (MDRD) > 60 Glucose 99 (74-105) mg/dL Calcium 8.4 (8.4-10.2) mg/dl Vancomycin Trough (10-15) ug/ml 04/03/18 04/03/18 Range/Units 08:30 08:30 WBC (5.0-10.0) 10^3/uL RBC (4.6-6.2) 10^6/uL Hgb (14.0-18.0) g/dL Hct (40.0-54.0) % MCV (80-100) fL MCH (27.0-34.0) pg MCHC (33.0-35.0) g/dL Plt Count (150-450) 10^3/uL Neut % (Auto) (42.2-75.2) % Lymph % (Auto) (20.5-50.1) % [place] % (Auto) (2-8) % Eos % (Auto) (1.0-3.0) % Baso % (Auto) (0.0-1.0) % PT 23.6 H (9.0-12.0) SEC INR 2.4 H (0.9-1.2) Sodium (135-145) mmol/L Potassium (3.6-5.0) mmol/L Chloride (101-111) mmol/L Carbon Dioxide (21.0-31.0) mmol/L Anion Gap BUN (7-18) mg/dL Creatinine (0.6-1.3) mg/dL Est Cr Clr Drug Dosing mL/min Estimated GFR (MDRD) Glucose (74-105) mg/dL Calcium (8.4-10.2) mg/dl Vancomycin Trough 31.3 H (10-15) ug/ml [place] Results Last 24 Hours: Microbiology 04/02/18 00:10 Wound Culture - Preliminary Leg, Right 04/01/18 22:00 Aerobic Blood Culture - Preliminary Blood - Venous - Lab Draw NO GROWTH AFTER 1 DAY Anaerobic Blood Culture - Final 04/01/18 21:54 Aerobic Blood Culture - Preliminary Blood - Venous NO GROWTH AFTER 1 DAY Anaerobic Blood Culture - Preliminary NO GROWTH AFTER 1 DAY Med Orders - Current: Current Medications Acetaminophen (Tylenol) 650 mg PO Q4H PRN PRN Reason: Pain (Mild 1-3)/fever Calcium Polycarbophil (Fibercon) 625 mg PO TID [facility] Last Admin: 04/03/18 09:29 Dose: 625 mg Cyclosporine (Restasis) 0 each EYEBOTH BID [facility] Last Admin: 04/03/18 09:29 Dose: 1 drop Diphenhydramine HCl (Benadryl) 50 mg PO BEDTIME PRN PRN Reason: sleep and allergies Last Admin: 04/03/18 00:06 Dose: 50 mg Ferrous Sulfate (Ferrous Sulfate) 325 mg PO Q48H [facility] Last Admin: 04/02/18 00:53 Dose: Not Given Piperacillin Sod/Tazobactam (Sod 3.375 gm/ Sodium Chloride) 100 mls @ 200 mls/ hr IV Q6HR [facility] Last Infusion: 04/03/18 07:25 Dose: Infused Vancomycin HCl 1.5 gm/ Sodium (Chloride) 500 mls @ 333.333 mls/hr IV Q12H [facility] Latanoprost (Xalatan 0.005% [facility] Soln) 0 ml EYERT BEDTIME [facility] Last Admin: 04/02/18 21:08 Dose: 1 drop Metoprolol Succinate (Toprol Xl) 50 mg PO WITHLUNCH [facility] Last Admin: 04/02/18 12:38 Dose: 50 mg Multivitamins/Minerals (I-Cindi) 1 each PO BID [facility] Last Admin: 04/03/18 09:29 Dose: 1 each Nystatin (Nystop) 0 gm TOP DAILY PRN PRN Reason: Rash Omeprazole (Omeprazole) 20 mg PO BIDM [facility] Last Admin: 04/03/18 08:30 Dose: 20 mg Sodium Chloride (Saline Flush) 10 ml FLUSH ASDIRECTED PRN PRN Reason: Keep Vein Open Last Admin: 04/03/18 08:35 Dose: 10 ml Vancomycin HCl (Pharmacy To Dose - Vancomycin) 1 dose .XX ASDIRECTED [facility] Warfarin Sodium (Pharmacy To Dose - Warfarin) 1 dose .XX ASDIRECTED [facility] Warfarin Sodium (Coumadin) 5 mg PO ONETIME ONE Stop: 04/03/18 14:01 Discontinued Medications Enoxaparin Sodium (Lovenox) 40 mg SUBCUT DAILY [facility] Last Admin: 04/02/18 09:49 Dose: Not Given Piperacillin Sod/Tazobactam (Sod 3.375 gm/ Sodium Chloride) 100 mls @ 200 mls/ hr IV ONETIME ONE Stop: 04/01/18 22:31 Last Admin: 04/01/18 22:19 Dose: 100 mls/hr Vancomycin HCl 2 gm/ Sodium (Chloride) 500 mls @ 334 mls/hr IV Q12H [facility] Last Admin: 04/02/18 01:03 Dose: Not Given Vancomycin HCl 2 gm/ Sodium (Chloride) 500 mls @ 334 mls/hr IV Q8H [facility] Last Admin: 04/03/18 09:47 Dose: Not Given Non-Formulary Medication (Vit A/Vit C/Vit E/Zinc/Copper [Preservision Areds Softgel]) 1 tab PO BID [facility] Last Admin: 04/02/18 09:49 Dose: Not Given Warfarin Sodium (Coumadin) 5 mg PO ..THU [facility] Warfarin Sodium (Coumadin) 7.5 mg PO . [facility] Warfarin Sodium (Coumadin) 7.5 mg PO ONETIME ONE Stop: 04/02/18 14:01 Last Admin: 04/02/18 14:16 Dose: 7.5 mg - Exam General: Alert, Oriented HEENT: Pupils Equal, Pupils Reactive Lungs: Clear to Auscultation Cardiovascular: Regular Rate, Regular Rhythm GI/Abdominal Exam: Normal Bowel Sounds - Problem List Review Problem List Initiated/Reviewed/Updated: Yes - My Orders Last 24 Hours: My Active Orders 04/02/18 12:00 Metoprolol Succinate [Toprol XL] 50 mg PO WITHLUNCH Piperacillin/Tazobactam [Zosyn] 3.375 gm Sodium Chloride 0.9% [Normal Saline] 100 ml IV Q6HR 04/02/18 15:30 Communication Order [RC] 0800 04/02/18 21:00 Latanoprost [Xalatan 0.005% Ophth Soln] 0 ml EYERT BEDTIME Lutein/Minerals/Vit A,C & E [I-Cindi] 1 each PO BID 04/03/18 14:00 Warfarin [Coumadin] 5 mg PO ONETIME ONE 04/03/18 21:00 Vancomycin 1.5 gm Sodium Chloride 0.9% [Normal Saline] 500 ml IV Q12H 04/04/18 05:11 BMP [BASIC METABOLIC PANEL,BMP] [CHEM] AM CBC WITH AUTO DIFF [HEME] AM 04/04/18 10:40 INR,PT,PROTHROMBIN TIME [COAG] DAILY 04/05/18 05:11 BMP [BASIC METABOLIC PANEL,BMP] [CHEM] AM CBC WITH AUTO DIFF [HEME] AM 04/05/18 10:40 INR,PT,PROTHROMBIN TIME [COAG] DAILY 04/06/18 05:11 BMP [BASIC METABOLIC PANEL,BMP] [CHEM] AM CBC WITH AUTO DIFF [HEME] AM 04/06/18 10:40 INR,PT,PROTHROMBIN TIME [COAG] DAILY 04/07/18 05:11 BMP [BASIC METABOLIC PANEL,BMP] [CHEM] AM CBC WITH AUTO DIFF [HEME] AM 04/07/18 10:40 INR,PT,PROTHROMBIN TIME [COAG] DAILY 04/08/18 05:11 BMP [BASIC METABOLIC PANEL,BMP] [CHEM] AM CBC WITH AUTO DIFF [HEME] AM 04/08/18 10:40 INR,PT,PROTHROMBIN TIME [COAG] DAILY - Plan Plan:: 52-year-old with morbid obesity, glaucoma, GERD who presents with left lower extremity cellulitis and a slowly healing surgical wound. #Cellulitis plus possibly infected surgical wound WBC has trended down Blood culture - negative Wound swab - staph aureus Follow up the sensitivity of S. aureus. Continue Vanc/Zosyn Trend WBC daily Tylenol when necessary for fever Monitor vital signs closely #History of DVT on Coumadin Check INR Continue home dose of Coumadin for now #Glaucoma Stable Continue home medications #GERD Continue omeprazole #DVT prophylaxis On Coumadin #CODE STATUS Full code
[2018-04-03] MEDS: Metoprolol Succinate 50 MG Tab.ER PO SCH (12:40)
[2018-04-03] MEDS ORDERED: Warfarin 5 MG Tab PO ONE (14:00)
[2018-04-03] MEDS: Vancomycin 1.5 GM in Sodium Chloride 0.9% 500 ML IV SCH (22:04)
[2018-04-03] MEDS: Latanoprost 0.005% Ophth Soln 2.5 ML Bottle EYERT SCH (22:05)
[2018-04-04] MEDS: Piperacillin/Tazobactam 3.375 GM in Sodium Chloride 0.9% 100 ML IV SCH ×2 (00:57→05:52)
[2018-04-04] MEDS: Ferrous Sulfate 325 MG Tab PO SCH (01:03)
[2018-04-04] MEDS: diphenhydrAMINE 25 MG Tab PO PRN ×2 (01:03→23:59)
[2018-04-04 06:51] LABS: CHLORIDE,CL 105 mmol/L (101-111); SODIUM,NA 140 mmol/L (135-145)
[2018-04-04] MEDS: Vancomycin 1.5 GM in Sodium Chloride 0.9% 500 ML IV SCH ×2 (08:59→21:20)
[2018-04-04] MEDS: Sodium Chloride 0.9% 10 ML Syringe FLUSH PRN (09:00)
[2018-04-04] MEDS: Lutein/Minerals/Vit A,C & E Tab PO SCH ×2 (09:05→20:56)
[2018-04-04] MEDS: Calcium Polycarbophil 625 MG Tab PO SCH ×3 (09:06→20:56)
[2018-04-04] MEDS: cycloSPORINE Ophth Drops U/D Box of 30 EYEBOTH SCH ×2 (09:06→20:56)
[2018-04-04] MEDS: Omeprazole 20 MG Cap.CR PO SCH ×2 (09:06→17:12)
--- NOTE | 2018-04-04 10:16 | PCM.PN ---
- General Info Date of Service: 04/04/18 Admission Dx/Problem (Free Text): Admission Diagnosis/Problem Admission Diagnosis/Problem Cellulitis Subjective Update: 52-year-old male with a past medical history of morbid obesity, lower,, gastroesophageal reflux disease, DVT on chronic anticoagulation with Coumadin, chronic right knee wound status skin grafting who presents with redness and swelling of the right thigh. Being managed for cellulitis of the right thing and possibly infected right thigh surgical wound. Has no new complaints this morning. Thigh redness and swelling has improved. Yellowish discharge from surgical wound has also decreased. No fever, no chills, no chest pain, no SOB. - Review of Systems General: Reports: No Symptoms HEENT: Reports: No Symptoms Pulmonary: Reports: No Symptoms Cardiovascular: Reports: No Symptoms Gastrointestinal: Reports: No Symptoms Genitourinary: Reports: No Symptoms - Patient Data Vitals - Most Recent: Last Vital Signs Temp 36.6 C 04/04/18 09:00 Pulse 67 04/04/18 09:00 Resp 18 04/04/18 09:00 BP 130/65 04/04/18 09:00 Pulse Ox 98 04/04/18 09:00 Weight - Most Recent: 213.098 kg I&O - Last 24 Hours: Intake & Output 04/03/18 04/04/18 04/04/18 22:59 06:59 14:59 Intake Total 850 1148 640 Output Total 1050 1500 Balance -200 1148 -860 Lab Results Last 24 Hours: Laboratory Results - last 24 hr 04/04/18 04/04/18 04/04/18 Range/Units 06:15 06:15 06:15 WBC 7.6 (5.0-10.0) 10^3/uL RBC 4.37 L (4.6-6.2) 10^6/uL Hgb 11.2 L (14.0-18.0) g/dL Hct 36.2 L (40.0-54.0) % MCV 82.8 (80-100) fL MCH 25.6 L (27.0-34.0) pg MCHC 30.9 L (33.0-35.0) g/dL Plt Count 257 (150-450) 10^3/uL Neut % (Auto) 68.1 (42.2-75.2) % Lymph % (Auto) 17.8 L (20.5-50.1) % [place] % (Auto) 9.1 H (2-8) % Eos % (Auto) 4.6 H (1.0-3.0) % Baso % (Auto) 0.4 (0.0-1.0) % PT 27.5 H (9.0-12.0) SEC INR 2.8 H (0.9-1.2) Sodium 140 (135-145) mmol/L Potassium 4.1 (3.6-5.0) mmol/L Chloride 105 (101-111) mmol/L Carbon Dioxide 31.0 (21.0-31.0) mmol/L Anion Gap 8.1 BUN 12 (7-18) mg/dL Creatinine 1.1 (0.6-1.3) mg/dL Est Cr Clr Drug Dosing 78.56 mL/min Estimated GFR (MDRD) > 60 Glucose 97 (74-105) mg/dL Calcium 8.6 (8.4-10.2) mg/dl [place] Results Last 24 Hours: Microbiology 04/02/18 00:10 Wound Culture - Final Leg, Right (Mrsa) Staphylococcus Aureus 04/01/18 22:00 Aerobic Blood Culture - Preliminary Blood - Venous - Lab Draw NO GROWTH AFTER 2 DAYS Anaerobic Blood Culture - Final 04/01/18 21:54 Aerobic Blood Culture - Preliminary Blood - Venous NO GROWTH AFTER 2 DAYS Anaerobic Blood Culture - Preliminary NO GROWTH AFTER 2 DAYS Med Orders - Current: Current Medications Acetaminophen (Tylenol) 650 mg PO Q4H PRN PRN Reason: Pain (Mild 1-3)/fever Calcium Polycarbophil (Fibercon) 625 mg PO TID [facility] Last Admin: 04/04/18 09:06 Dose: 625 mg Cyclosporine (Restasis) 0 each EYEBOTH BID [facility] Last Admin: 04/04/18 09:06 Dose: 1 drop Diphenhydramine HCl (Benadryl) 50 mg PO BEDTIME PRN PRN Reason: sleep and allergies Last Admin: 04/04/18 01:03 Dose: 50 mg Ferrous Sulfate (Ferrous Sulfate) 325 mg PO Q48H [facility] Last Admin: 04/04/18 01:03 Dose: 325 mg Vancomycin HCl 1.5 gm/ Sodium (Chloride) 500 mls @ 333.333 mls/hr IV Q12H [facility] Last Admin: 04/04/18 08:59 Dose: 200 mls/hr Latanoprost (Xalatan 0.005% Ophth Soln) 0 ml EYERT BEDTIME [facility] Last Admin: 04/03/18 22:05 Dose: 1 drop Metoprolol Succinate (Toprol Xl) 50 mg PO WITHLUNCH [facility] Last Admin: 04/03/18 12:40 Dose: 50 mg Multivitamins/Minerals (I-Cindi) 1 each PO BID [facility] Last Admin: 04/04/18 09:05 Dose: 1 each Nystatin (Nystop) 0 gm TOP DAILY PRN PRN Reason: Rash Omeprazole (Omeprazole) 20 mg PO BIDM [facility] Last Admin: 04/04/18 09:06 Dose: 20 mg Sodium Chloride (Saline Flush) 10 ml FLUSH ASDIRECTED PRN PRN Reason: Keep Vein Open Last Admin: 04/04/18 09:00 Dose: 10 ml Vancomycin HCl (Pharmacy To Dose - Vancomycin) 1 dose .XX ASDIRECTED [facility] Warfarin Sodium (Pharmacy To Dose - Warfarin) 1 dose .XX ASDIRECTED [facility] Warfarin Sodium (Coumadin) 5 mg PO ONETIME ONE Stop: 04/04/18 14:01 Discontinued Medications Enoxaparin Sodium (Lovenox) 40 mg SUBCUT DAILY [facility] Last Admin: 04/02/18 09:49 Dose: Not Given Piperacillin Sod/Tazobactam (Sod 3.375 gm/ Sodium Chloride) 100 mls @ 200 mls/ hr IV ONETIME ONE Stop: 04/01/18 22:31 Last Admin: 04/01/18 22:19 Dose: 100 mls/hr Vancomycin HCl 2 gm/ Sodium (Chloride) 500 mls @ 334 mls/hr IV Q12H [facility] Last Admin: 04/02/18 01:03 Dose: Not Given Vancomycin HCl 2 gm/ Sodium (Chloride) 500 mls @ 334 mls/hr IV Q8H [facility] Last Admin: 04/03/18 09:47 Dose: Not Given Piperacillin Sod/Tazobactam (Sod 3.375 gm/ Sodium Chloride) 100 mls @ 200 mls/ hr IV Q6HR [facility] Last Infusion: 04/04/18 07:20 Dose: Infused Non-Formulary Medication (Vit A/Vit C/Vit E/Zinc/Copper [Preservision Areds Softgel]) 1 tab PO BID [facility] Last Admin: 04/02/18 09:49 Dose: Not Given Warfarin Sodium (Coumadin) 5 mg PO ...THU [facility] Warfarin Sodium (Coumadin) 7.5 mg PO ..THU [facility] Warfarin Sodium (Coumadin) 7.5 mg PO ONETIME ONE Stop: 04/02/18 14:01 Last Admin: 04/02/18 14:16 Dose: 7.5 mg Warfarin Sodium (Coumadin) 5 mg PO ONETIME ONE Stop: 04/03/18 14:01 Last Admin: 04/03/18 13:58 Dose: 5 mg - Exam General: Alert, Oriented Neck: Supple Lungs: Clear to Auscultation Cardiovascular: Regular Rate GI/Abdominal Exam: Normal Bowel Sounds Skin: Other (improving cellulitis right thigh. ) - Problem List Review Problem List Initiated/Reviewed/Updated: Yes - My Orders Last 24 Hours: My Active Orders 04/03/18 21:00 Vancomycin 1.5 gm Sodium Chloride 0.9% [Normal Saline] 500 ml IV Q12H 04/04/18 10:14 Isolation [COMM] Routine 04/04/18 14:00 Warfarin [Coumadin] 5 mg PO ONETIME ONE 04/05/18 05:11 BMP [BASIC METABOLIC PANEL,BMP] [CHEM] AM CBC WITH AUTO DIFF [HEME] AM 04/05/18 10:40 INR,PT,PROTHROMBIN TIME [COAG] DAILY 04/06/18 05:11 BMP [BASIC METABOLIC PANEL,BMP] [CHEM] AM CBC WITH AUTO DIFF [HEME] AM 04/06/18 10:40 INR,PT,PROTHROMBIN TIME [COAG] DAILY 04/07/18 05:11 BMP [BASIC METABOLIC PANEL,BMP] [CHEM] AM CBC WITH AUTO DIFF [HEME] AM 04/07/18 10:40 INR,PT,PROTHROMBIN TIME [COAG] DAILY 04/08/18 05:11 BMP [BASIC METABOLIC PANEL,BMP] [CHEM] AM CBC WITH AUTO DIFF [HEME] AM 04/08/18 10:40 INR,PT,PROTHROMBIN TIME [COAG] DAILY - Plan Plan:: 52-year-old with morbid obesity, glaucoma, GERD who presents with left lower extremity cellulitis and a slowly healing surgical wound. #Cellulitis plus possibly infected surgical wound WBC has trended down Blood culture - negative Wound swab - MRSA Set up contact precaitions Continue Vanc. DC Zosyn Trend WBC daily Tylenol when necessary for fever Monitor vital signs closely #History of DVT on Coumadin Check INR Continue home dose of Coumadin for now #Glaucoma Stable Continue home medications #GERD Continue omeprazole #DVT prophylaxis On Coumadin #CODE STATUS Full code
[2018-04-04] MEDS: Metoprolol Succinate 50 MG Tab.ER PO SCH (12:20)
[2018-04-04] MEDS ORDERED: Warfarin 5 MG Tab PO ONE (14:00)
[2018-04-04] MEDS: Acetaminophen 325 MG Tab PO PRN (19:11)
[2018-04-04] MEDS: Latanoprost 0.005% Ophth Soln 2.5 ML Bottle EYERT SCH (20:58)
[2018-04-05 06:53] LABS: CHLORIDE,CL 105 mmol/L (101-111); SODIUM,NA 140 mmol/L (135-145)
[2018-04-05] MEDS: Calcium Polycarbophil 625 MG Tab PO SCH ×3 (08:14→17:09)
[2018-04-05] MEDS: Omeprazole 20 MG Cap.CR PO SCH ×2 (08:14→17:09)
--- NOTE | 2018-04-05 09:12 | PCM.PN ---
- General Info Date of Service: 04/05/18 Admission Dx/Problem (Free Text): Admission Diagnosis/Problem Admission Diagnosis/Problem Cellulitis Subjective Update: 52-year-old male with a past medical history of morbid obesity, lower,, gastroesophageal reflux disease, DVT on chronic anticoagulation with Coumadin, chronic right knee wound status skin grafting who presents with redness and swelling of the right thigh. Being managed for cellulitis of the right thing and possibly infected right thigh surgical wound. Has no new complaints this morning. Thigh redness and swelling has improved. Yellowish discharge from surgical wound has also decreased. No fever, no chills, no chest pain, no SOB. - Review of Systems General: Reports: No Symptoms HEENT: Reports: No Symptoms Pulmonary: Reports: No Symptoms Cardiovascular: Reports: No Symptoms Gastrointestinal: Reports: No Symptoms Genitourinary: Reports: No Symptoms Musculoskeletal: Reports: Other (improving redness on right thigh) - Patient Data Vitals - Most Recent: Last Vital Signs Temp 37.0 C 04/05/18 08:00 Pulse 61 04/05/18 08:00 Resp 18 04/05/18 08:00 BP 132/71 04/05/18 08:00 Pulse Ox 98 04/05/18 08:00 Weight - Most Recent: 213.098 kg I&O - Last 24 Hours: Intake & Output 04/04/18 04/05/18 04/05/18 22:59 06:59 14:59 Intake Total 840 900 Balance 840 900 Lab Results Last 24 Hours: Laboratory Results - last 24 hr 04/04/18 04/05/18 04/05/18 Range/Units 20:25 06:08 06:08 WBC 7.1 (5.0-10.0) 10^3/uL RBC 4.37 L (4.6-6.2) 10^6/uL Hgb 11.3 L (14.0-18.0) g/dL Hct 36.2 L (40.0-54.0) % MCV 82.8 (80-100) fL MCH 25.9 L (27.0-34.0) pg MCHC 31.2 L (33.0-35.0) g/dL Plt Count 259 (150-450) 10^3/uL Neut % (Auto) 65.9 (42.2-75.2) % Lymph % (Auto) 19.0 L (20.5-50.1) % [place] % (Auto) 10.3 H (2-8) % Eos % (Auto) 4.5 H (1.0-3.0) % Baso % (Auto) 0.3 (0.0-1.0) % PT (9.0-12.0) SEC INR (0.9-1.2) Sodium 140 (135-145) mmol/L Potassium 3.9 (3.6-5.0) mmol/L Chloride 105 (101-111) mmol/L Carbon Dioxide 28.0 (21.0-31.0) mmol/L Anion Gap 10.9 BUN 13 (7-18) mg/dL Creatinine 1.1 (0.6-1.3) mg/dL Est Cr Clr Drug Dosing 78.56 mL/min Estimated GFR (MDRD) > 60 Glucose 97 (74-105) mg/dL Calcium 8.7 (8.4-10.2) mg/dl Vancomycin Trough 18.9 H (10-15) ug/ml 04/05/18 Range/Units 06:08 WBC (5.0-10.0) 10^3/uL RBC (4.6-6.2) 10^6/uL Hgb (14.0-18.0) g/dL Hct (40.0-54.0) % MCV (80-100) fL MCH (27.0-34.0) pg MCHC (33.0-35.0) g/dL Plt Count (150-450) 10^3/uL Neut % (Auto) (42.2-75.2) % Lymph % (Auto) (20.5-50.1) % [place] % (Auto) (2-8) % Eos % (Auto) (1.0-3.0) % Baso % (Auto) (0.0-1.0) % PT 26.8 H (9.0-12.0) SEC INR 2.8 H (0.9-1.2) Sodium (135-145) mmol/L Potassium (3.6-5.0) mmol/L Chloride (101-111) mmol/L Carbon Dioxide (21.0-31.0) mmol/L Anion Gap BUN (7-18) mg/dL Creatinine (0.6-1.3) mg/dL Est Cr Clr Drug Dosing mL/min Estimated GFR (MDRD) Glucose (74-105) mg/dL Calcium (8.4-10.2) mg/dl Vancomycin Trough (10-15) ug/ml [place] Results Last 24 Hours: Microbiology 04/01/18 22:00 Aerobic Blood Culture - Preliminary Blood - Venous - Lab Draw NO GROWTH AFTER 3 DAYS Anaerobic Blood Culture - Final 04/01/18 21:54 Aerobic Blood Culture - Preliminary Blood - Venous NO GROWTH AFTER 3 DAYS Anaerobic Blood Culture - Preliminary NO GROWTH AFTER 3 DAYS 04/02/18 00:10 Wound Culture - Final Leg, Right (Mrsa) Staphylococcus Aureus Med Orders - Current: Current Medications Acetaminophen (Tylenol) 650 mg PO Q4H PRN PRN Reason: Pain (Mild 1-3)/fever Last Admin: 04/04/18 19:11 Dose: 650 mg Calcium Polycarbophil (Fibercon) 625 mg PO TID@0800,1200,1700 [facility] Last Admin: 04/05/18 08:14 Dose: 625 mg Cyclosporine (Restasis) 0 each EYEBOTH BID [facility] Last Admin: 04/04/18 20:56 Dose: 1 drop Diphenhydramine HCl (Benadryl) 50 mg PO BEDTIME PRN PRN Reason: sleep and allergies Last Admin: 04/04/18 23:59 Dose: 50 mg Ferrous Sulfate (Ferrous Sulfate) 325 mg PO Q48H [facility] Last Admin: 04/04/18 01:03 Dose: 325 mg Vancomycin HCl 1.5 gm/ Sodium (Chloride) 500 mls @ 333.333 mls/hr IV Q12H [facility] Last Admin: 04/04/18 21:20 Dose: 200 mls/hr Latanoprost (Xalatan 0.005% Ophth Soln) 0 ml EYERT BEDTIME [facility] Last Admin: 04/04/18 20:58 Dose: 1 drop Metoprolol Succinate (Toprol Xl) 50 mg PO WITHLUNCH [facility] Last Admin: 04/04/18 12:20 Dose: 50 mg Multivitamins/Minerals (I-Cindi) 1 each PO BID [facility] Last Admin: 04/04/18 20:56 Dose: 1 each Nystatin (Nystop) 0 gm TOP DAILY PRN PRN Reason: Rash Omeprazole (Omeprazole) 20 mg PO BID@0730,1700 [facility] Last Admin: 04/05/18 08:14 Dose: 20 mg Sodium Chloride (Saline Flush) 10 ml FLUSH ASDIRECTED PRN PRN Reason: Keep Vein Open Last Admin: 04/05/18 00:00 Dose: 10 ml Vancomycin HCl (Pharmacy To Dose - Vancomycin) 1 dose .XX ASDIRECTED [facility] Warfarin Sodium (Pharmacy To Dose - Warfarin) 1 dose .XX ASDIRECTED [facility] Discontinued Medications Calcium Polycarbophil (Fibercon) 625 mg PO TID [facility] Last Admin: 04/04/18 20:56 Dose: 625 mg Enoxaparin Sodium (Lovenox) 40 mg SUBCUT DAILY [facility] Last Admin: 04/02/18 09:49 Dose: Not Given Piperacillin Sod/Tazobactam (Sod 3.375 gm/ Sodium Chloride) 100 mls @ 200 mls/ hr IV ONETIME ONE Stop: 04/01/18 22:31 Last Admin: 04/01/18 22:19 Dose: 100 mls/hr Vancomycin HCl 2 gm/ Sodium (Chloride) 500 mls @ 334 mls/hr IV Q12H [facility] Last Admin: 04/02/18 01:03 Dose: Not Given Vancomycin HCl 2 gm/ Sodium (Chloride) 500 mls @ 334 mls/hr IV Q8H [facility] Last Admin: 04/03/18 09:47 Dose: Not Given Piperacillin Sod/Tazobactam (Sod 3.375 gm/ Sodium Chloride) 100 mls @ 200 mls/ hr IV Q6HR [facility] Last Infusion: 04/04/18 07:20 Dose: Infused Non-Formulary Medication (Vit A/Vit C/Vit E/Zinc/Copper [Preservision Areds Softgel]) 1 tab PO BID [facility] Last Admin: 04/02/18 09:49 Dose: Not Given Omeprazole (Omeprazole) 20 mg PO BIDM [facility] Last Admin: 04/04/18 17:12 Dose: 20 mg Warfarin Sodium (Coumadin) 5 mg PO ..THU [facility] Warfarin Sodium (Coumadin) 7.5 mg PO ..THU [facility] Warfarin Sodium (Coumadin) 7.5 mg PO ONETIME ONE Stop: 04/02/18 14:01 Last Admin: 04/02/18 14:16 Dose: 7.5 mg Warfarin Sodium (Coumadin) 5 mg PO ONETIME ONE Stop: 04/03/18 14:01 Last Admin: 04/03/18 13:58 Dose: 5 mg Warfarin Sodium (Coumadin) 5 mg PO ONETIME ONE Stop: 04/04/18 14:01 Last Admin: 04/04/18 14:30 Dose: 5 mg - Exam General: Alert, Oriented HEENT: Pupils Equal Neck: Supple Lungs: Clear to Auscultation Cardiovascular: Regular Rate, Regular Rhythm GI/Abdominal Exam: Normal Bowel Sounds - Problem List Review Problem List Initiated/Reviewed/Updated: Yes - My Orders Last 24 Hours: My Active Orders 04/04/18 10:14 Isolation [COMM] Routine 04/05/18 07:30 Omeprazole 20 mg PO BID@0730,1700 04/05/18 08:00 Calcium Polycarbophil [Fibercon] 625 mg PO TID@0800,1200,1700 04/06/18 05:11 BMP [BASIC METABOLIC PANEL,BMP] [CHEM] AM CBC WITH AUTO DIFF [HEME] AM 04/06/18 10:40 INR,PT,PROTHROMBIN TIME [COAG] DAILY 04/07/18 05:11 BMP [BASIC METABOLIC PANEL,BMP] [CHEM] AM CBC WITH AUTO DIFF [HEME] AM 04/07/18 10:40 INR,PT,PROTHROMBIN TIME [COAG] DAILY 04/08/18 05:11 BMP [BASIC METABOLIC PANEL,BMP] [CHEM] AM CBC WITH AUTO DIFF [HEME] AM 04/08/18 10:40 INR,PT,PROTHROMBIN TIME [COAG] DAILY - Plan Plan:: 52-year-old with morbid obesity, glaucoma, GERD who presents with left lower extremity cellulitis and a slowly healing surgical wound. #Cellulitis plus possibly infected surgical wound WBC has trended down; cellulitis is markedly improved. Blood culture - negative Wound swab - MRSA Set up contact precautions Will treat with IV Vancomycin for one week and continue on oral MRSA antibiotic (Bactrim) for one more week. Follow up with ID clinic later this week. #History of DVT on Coumadin Check INR Continue home dose of Coumadin for now #Glaucoma Stable Continue home medications #GERD Continue omeprazole #DVT prophylaxis On Coumadin #CODE STATUS Full code
[2018-04-05] MEDS: Vancomycin 1.5 GM in Sodium Chloride 0.9% 500 ML IV SCH (09:31)
[2018-04-05] MEDS: Sodium Chloride 0.9% 10 ML Syringe FLUSH PRN ×2 (09:32)
[2018-04-05] MEDS: Lutein/Minerals/Vit A,C & E Tab PO SCH (09:34)
[2018-04-05] MEDS: cycloSPORINE Ophth Drops U/D Box of 30 EYEBOTH SCH (09:35)
[2018-04-05] MEDS: Metoprolol Succinate 50 MG Tab.ER PO SCH (13:29)
[2018-04-05] MEDS ORDERED: Warfarin 5 MG Tab PO ONE (14:00)
[2018-04-06] MEDS: cycloSPORINE Ophth Drops U/D Box of 30 EYEBOTH SCH ×3 (01:34→22:10)
[2018-04-06] MEDS: Lutein/Minerals/Vit A,C & E Tab PO SCH ×3 (01:34→22:10)
[2018-04-06] MEDS: Vancomycin 1.5 GM in Sodium Chloride 0.9% 500 ML IV SCH ×3 (01:34→15:06)
[2018-04-06] MEDS: Latanoprost 0.005% Ophth Soln 2.5 ML Bottle EYERT SCH ×2 (01:35→22:10)
[2018-04-06] MEDS: Ferrous Sulfate 325 MG Tab PO SCH (01:35)
[2018-04-06] MEDS: Omeprazole 20 MG Cap.CR PO SCH ×2 (08:33→16:29)
[2018-04-06] MEDS: Calcium Polycarbophil 625 MG Tab PO SCH ×3 (08:33→16:29)
[2018-04-06 09:02] LABS: CHLORIDE,CL 103 mmol/L (101-111); SODIUM,NA 139 mmol/L (135-145)
[2018-04-06] MEDS: Metoprolol Succinate 50 MG Tab.ER PO SCH (12:28)
[2018-04-06] MEDS ORDERED: Naproxen 250 MG Tab PO PRN (13:29)
[2018-04-06] MEDS ORDERED: Warfarin 2.5 MG Tab PO ONE (14:00)
[2018-04-06] MEDS: Acetaminophen 325 MG Tab PO PRN ×2 (16:29→23:57)
[2018-04-06] MEDS: diphenhydrAMINE 25 MG Tab PO PRN (23:58)
[2018-04-07 07:16] LABS: CHLORIDE,CL 102 mmol/L (101-111); SODIUM,NA 137 mmol/L (135-145)
[2018-04-07] MEDS: Vancomycin 1.5 GM in Sodium Chloride 0.9% 500 ML IV SCH (08:43)
[2018-04-07] MEDS: Sodium Chloride 0.9% 10 ML Syringe FLUSH PRN (08:44)
[2018-04-07] MEDS: cycloSPORINE Ophth Drops U/D Box of 30 EYEBOTH SCH (10:11)
[2018-04-07] MEDS: Lutein/Minerals/Vit A,C & E Tab PO SCH (10:12)
[2018-04-07] MEDS: Omeprazole 20 MG Cap.CR PO SCH (10:13)
[2018-04-07] MEDS: Calcium Polycarbophil 625 MG Tab PO SCH ×2 (10:13→12:29)
--- NOTE | 2018-04-07 10:34 | PN ---
DATE: 04/06/2018 SUBJECTIVE: Mr. Francis is a 52-year-old male being admitted as a case of recurrent cellulitis in the right leg. The patient was seen on his subsequent hospital day. He has no new issues reported today. No new concerns from the nursing staff. During the encounter, we were still awaiting for his Vanco trough. He has not told me that his naproxen was discontinued. He has been taking this for his arthritis. Otherwise, he denies any chest pain, shortness of breath, diarrhea, or any rashes. No abdominal pain. OBJECTIVE: Vital Signs: Blood pressure 143/78, heart rate of 68 beats per minute, respirations 16 breaths per minute, and oxygen saturation 98%. General Appearance: Awake, in distress. Chest: Symmetric chest expansion. Lungs: Bilateral air entry. Cardiovascular System: Regular rate and rhythm. Abdomen: Soft. Normoactive bowel sounds. Extremities: Area of superficial ulceration overlying the right thigh to almost the right knee. No surrounding tenderness. LABORATORY DATA: Labs showed hemoglobin 12.1, platelets of 270, WBC 7.9. INR 2.3. BMP within normal limits. Vanco trough 21.92. ASSESSMENT AND PLAN: Continue with vancomycin, to be dosed by Pharmacy. He will have his last dose tomorrow and will discharge him on Bactrim. He will also have an outpatient followup with Infectious Disease with regard to his recurrent cellulitis in the right leg. As for his arthritis, we will restart naproxen with a lower dose given as the patient is on anticoagulation. Given his recurrent MRSA infection, it would be prudent for him to have decolonization. We will have him do Bactroban to both nostrils twice a day. [facility] /[id number]
[2018-04-07] MEDS: Metoprolol Succinate 50 MG Tab.ER PO SCH (12:30)
[2018-04-07 12:35] VITALS: BP 139/74
[2018-04-07] MEDS ORDERED: Warfarin 2.5 MG Tab PO ONE (14:00)
--- NOTE | 2018-04-08 09:16 | DISCH ---
FINAL DIAGNOSES: 1. Right leg cellulitis. 2. History of right knee hematoma. 3. History of skin graft on the right leg. 4. History of deep venous thrombosis. 5. Obesity. BRIEF HISTORY AND PHYSICAL EXAMINATION: The patient is a 52-year-old male who was admitted with a cellulitis of the right knee and history of right knee hematoma had underwent excisional debridement in the past with skin grafting, care of Plastic Surgery and was noted to have recurrent cellulitis. He also had history of right leg DVT, on Coumadin. On admission, documented vital signs; blood pressure 136/66, heart rate of 72 beats per minute, respirations 18 breaths per minute, oxygen saturation 97%, and temperature 36.2. Redness on the right thigh, which was nontender was noted and yellowish discharge was noted on the right wound. Workup done in the hospitalization showed MRSA wound culture and blood culture no growth. The discharge CBC showed hemoglobin 11.7 and platelets 251. INR 2.2. BMP within normal limits. Latest vancomycin trough 21.9. BRIEF HOSPITAL COURSE: The patient admitted under medical-surgical bed. Given his history of recurrent cellulitis, he was started on IV vancomycin and IV Zosyn. Due to the elevated WBC, this was monitored regularly. His warfarin was continued and INR followed regularly. Wound care was done regularly with Xeroform. The patient remains hemodynamically stable. Area of concern on the right leg has noted to be improving. Wound culture showed MRSA. Zosyn was discontinued, and vancomycin was continued. At some point, he was having problems with IV lines. DISCHARGE INSTRUCTIONS: The patient is stable to be discharged home. Follow up with primary care within 1 week from discharge. The patient to be discharged on Bactrim for 2 weeks, and given his recurrent infection and challenges with obtaining an IV line, the patient is to discuss with his primary care with regard to having a port. Also, given his recurrent infection, advised to have a followup with Infectious Disease. Latest vital signs on discharge; blood pressure 139/74, heart rate of 66 beats per minute, respirations 14 breaths per minute, oxygen saturation 99%, and temperature 97.7. [facility] /[id number]
== END 2018-04-07 13:50 | disposition home or self-care (01) | DRG 863 ==
LOC: DL.ED 20:31 → INTOOBSV 22:54 → DL.MS 22:54 → UNDOADMOB 22:54 → OBSVTOIN 22:54 → DL.MS 23:56
PROVIDERS: ADMIT Hospitalist; ATTEND Hospitalist
DX: T81.4XXA Infection following a procedure, initial encounter (principal); H54.7 Unspecified visual loss; L03.115 Cellulitis of right lower limb; Z68.45 Body mass index [BMI] 70 or greater, adult; F17.200 Nicotine dependence, unspecified, uncomplicated; E66.9 Obesity, unspecified; E66.01 Morbid (severe) obesity due to excess calories; K21.9 Gastro-esophageal reflux disease without esophagitis; I10 Essential (primary) hypertension; H40.9 Unspecified glaucoma; M19.90 Unspecified osteoarthritis, unspecified site; F17.210 Nicotine dependence, cigarettes, uncomplicated; Y83.8 Other surgical procedures as the cause of abnormal reaction of the patient, or of later complication, without mention of misadventure at the time of the procedure; B95.61 Methicillin susceptible Staphylococcus aureus infection as the cause of diseases classified elsewhere; Z86.718 Personal history of other venous thrombosis and embolism; Z79.01 Long term (current) use of anticoagulants; Z98.890 Other specified postprocedural states; Z91.81 History of falling; Z88.8 Allergy status to other drugs, medicaments and biological substances; Z79.899 Other long term (current) drug therapy; Z87.01 Personal history of pneumonia (recurrent); Z86.14 Personal history of Methicillin resistant Staphylococcus aureus infection
CPT/HCPCS: 36415; 80053; 83605; 85025; 85610; 87040 ×2; 96365; 99284 ×2; J2543; J7050; 80048; 80202; 87070; 87077; 87186; 97162-GP; A9270-GY; J1650; J3370; J7040

== ENCOUNTER 2021-11-05 12:05 | Emergency (ER) | payer MEDICARE, BC ==
[2021-11-05 12:33] VITALS: BP 138/56; PULSE 95
--- NOTE | 2021-11-05 12:36 | EDM.PDOC ---
ED HPI GENERAL MEDICAL PROBLEM - General Chief Complaint: Genitourinary Problem Stated Complaint: AMBULANCE Time Seen by Provider: 11/05/21 12:36 Source of Information: Reports: Patient, RN, RN Notes Reviewed History Limitations: Reports: No Limitations - History of Present Illness INITIAL COMMENTS - FREE TEXT/NARRATIVE: Pt to ED via ambulance with c/o red tinged urine starting at approximately 1100HRS today. Admits to dysuria x1 days duration. States urine was pink tinged last night and this morning. States urine has been a "little bit" cloudy for a couple days. Admits to mild flank pain starting this morning. Rates pain 2/10. He also says his lower medial thighs rub and he thinks he is developing skin ulcers. Also would like his INR checked because he has been able to get to clinic for over 2 months to have it checked. Denies fever, chills, bleeding or unusual bruising. Onset: Gradual Onset Date: 11/04/21 Duration: Constant Location: Reports: Other (Urinary) Quality: Reports: Burning Severity: Moderate Improves with: Reports: None Associated Symptoms: Reports: No Other Symptoms Bilateral Flank Pain Score (Numeric/FACES): 2 - Related Data Allergies Allergy/AdvReac Type Severity Reaction Status Date / Time azithromycin [From Zithromax] Allergy Intermediate Other Verified 11/05/21 12:33 Home Meds: Home Meds Latanoprost 1 drop EYERT BEDTIME 04/09/15 [History] Omeprazole 20 mg PO BIDM 04/09/15 [History] cycloSPORINE [Restasis] 1 drop EYEBOTH BID 04/09/15 [History] Acetaminophen [Tylenol] 650 mg PO Q4H PRN #0 tablet 04/15/15 [Rx] Metoprolol Succinate [Toprol XL] 50 mg PO WITHLUNCH 10/28/17 [History] calcium polycarbophiL [Fibercon] 625 mg PO TID 11/22/17 [History] diphenhydrAMINE [Benadryl] 50 mg PO BEDTIME PRN 11/22/17 [History] Ferrous Sulfate 325 mg PO Q48H 03/12/18 [History] Nystatin [Nystop] 1 applic TOP DAILY PRN 03/12/18 [History] Vit A/Vit C/Vit E/Zinc/Copper [Preservision Areds Softgel] 1 tab PO BID 03/12/18 [History] Warfarin Sodium [Jantoven] 5 mg PO .SUN...Thu03/12/18 [History] Warfarin Sodium [Jantoven] 7.5 mg PO .MO.THU.Thu03/12/18 [History] Sulfamethoxazole/Trimethoprim [Bactrim Ds Tablet] 1 each PO BID #28 tablet 04/07/18 [Rx] Past Medical History HEENT History: Reports: Glaucoma, Impaired Vision Other HEENT History: dry eyes Cardiovascular History: Reports: Hypertension Respiratory History: Reports: Pneumonia, Recurrent Gastrointestinal History: Reports: GERD Genitourinary History: Reports: None Musculoskeletal History: Reports: Arthritis, Fracture Neurological History: Reports: Concussion Psychiatric History: Reports: None Endocrine/Metabolic History: Reports: Obesity/BMI 30+ Hematologic History: Reports: Blood Transfusion(s) Immunologic History: Reports: None Oncologic (Cancer) History: Reports: None Dermatologic History: Reports: Cellulitis - Infectious Disease History Infectious Disease History: Reports: Chicken Pox, Measles, MRSA - Past Surgical History Head Surgeries/Procedures: Reports: None HEENT Surgical History: Reports: None Cardiovascular Surgical History: Reports: None Respiratory Surgical History: Reports: None Endocrine Surgical History: Reports: None Neurological Surgical History: Reports: None Musculoskeletal Surgical History: Reports: Other (See Below) Other Musculoskeletal Surgeries/Procedures:: right keys skin graft Dermatological Surgical History: Reports: Skin Graft Social & Family History - Family History Family Medical History: No Pertinent Family History Cardiac: Reports: Heart Failure Oncologic: Reports: Other (See Below) Other Oncologic Family History: throat - Caffeine Use Caffeine Use: Reports: None - Living Situation & Occupation Living situation: Reports: Single ED ROS GENERAL - Review of Systems Review Of Systems: Comprehensive ROS is negative, except as noted in HPI. ED EXAM, RENAL/ - Physical Exam Exam: See Below Exam Limited By: No Limitations General Appearance: Alert, No Apparent Distress, Obese Eye Exam: Bilateral Eye: Normal Inspection Nose: Normal Inspection Throat/Mouth: Normal Voice, No Airway Compromise Head: Atraumatic, Normocephalic Respiratory/Chest: No Respiratory Distress, Lungs Clear, No Accessory Muscle Use, Decreased Breath Sounds Cardiovascular: Regular Rate, Rhythm GI/Abdominal: Soft, Non-Tender, Other (Severely obese abdomen) Extremities: Other (Severely obese B/L lower exts. with friction chaffing of the distal medial thighs with superficial ulceration and granulation tissue.) Neurological: Alert, Oriented, No Motor/Sensory Deficits Psychiatric: Normal Mood Skin Exam: Warm, Dry Course - Vital Signs Last Recorded V/S: Last Vital Signs Temp 98.3 F 11/05/21 12:25 Pulse 95 11/05/21 12:25 Resp 22 H 11/05/21 12:25 BP 138/56 L 11/05/21 12:25 Pulse Ox 91 L 11/05/21 12:25 - Orders/Labs/Meds Orders: Active Orders 24 hr Category Date Time Status Peripheral IV Care [RC] . DIRECTED Care 11/05/21 14:41 Active Wound Care [RC] ONETIME Care 11/05/21 14:04 Active CULTURE URINE [RM] Stat Lab 11/05/21 13:00 Received Sodium Chloride 0.9% [Saline Flush] Med 11/05/21 14:41 Active 10 ml FLUSH ASDIRECTED PRN Peripheral IV Insertion Adult [OM.PC] Stat Oth 11/05/21 14:41 Ordered Medication Orders Sodium Chloride (Sodium Chloride 0.9% 10 Ml Syringe) 10 ml FLUSH ASDIRECTED PRN PRN Reason: Keep Vein Open Last Admin: 11/05/21 15:39 Dose: 10 ml Documented by: KRISS Labs: Laboratory Tests 11/05/21 11/05/21 11/05/21 Range/Units 13:00 14:15 14:15 WBC 19.1 H (5.0-10.0) 10^3/uL RBC 4.83 (4.6-6.2) 10^6/uL Hgb 13.0 L (14.0-18.0) g/dL Hct 41.9 (40.0-54.0) % MCV 86.7 (80-100) fL MCH 26.9 L (27.0-34.0) pg MCHC 31.0 L (33.0-35.0) g/dL Plt Count 267 (150-450) 10^3/uL Neut % (Auto) 90.9 H (42.2-75.2) % Lymph % (Auto) 3.4 L (20.5-50.1) % [place] % (Auto) 5.4 (2-8) % Eos % (Auto) 0.1 L (1.0-3.0) % Baso % (Auto) 0.2 (0.0-1.0) % PT 64.3 H D (9.0-12.0) SEC INR 6.6 H* (0.9-1.2) Sodium (136-145) mmol/L Potassium (3.5-5.1) mmol/L Chloride (98-107) mmol/L Carbon Dioxide (21-32) mmol/L Anion Gap (7-13) mEq/L BUN (7-18) mg/dL Creatinine (0.70-1.30) mg/dL Est Cr Clr Drug Dosing mL/min Estimated GFR (MDRD) Glucose (70-99) mg/dL Calcium (8.5-10.1) mg/dL Urine Color Miranda (YELLOW) Urine Appearance Turbid (CLEAR) Urine pH 7.0 (5.0-9.0) Ur Specific [place] >= 1.030 (1.005-1.030) Urine Protein >=300 H (NEGATIVE) Urine Glucose (UA) Negative (NEGATIVE) Urine Ketones Trace H (NEGATIVE) Urine Occult Blood Large H (NEGATIVE) Urine Nitrite Positive H (NEGATIVE) Urine Bilirubin Small H (NEGATIVE) Urine Urobilinogen 1.0 (0.2-1.0) mg/dL Ur Leukocyte Esterase Small H (NEGATIVE) Urine RBC >100 H (0-5) /HPF Urine WBC 30-40 H (0-5/HPF) /HPF Ur Epithelial Cells Few (NOT SEEN) /HPF Urine Bacteria Many H (0-FEW/HPF) /HPF Urine Mucus Rare (NOT SEEN) /LPF 11/05/21 Range/Units 14:15 WBC (5.0-10.0) 10^3/uL RBC (4.6-6.2) 10^6/uL Hgb (14.0-18.0) g/dL Hct (40.0-54.0) % MCV (80-100) fL MCH (27.0-34.0) pg MCHC (33.0-35.0) g/dL Plt Count (150-450) 10^3/uL Neut % (Auto) (42.2-75.2) % Lymph % (Auto) (20.5-50.1) % [place] % (Auto) (2-8) % Eos % (Auto) (1.0-3.0) % Baso % (Auto) (0.0-1.0) % PT (9.0-12.0) SEC INR (0.9-1.2) Sodium 141 (136-145) mmol/L Potassium 4.4 (3.5-5.1) mmol/L Chloride 102 (98-107) mmol/L Carbon Dioxide 28 (21-32) mmol/L Anion Gap 15.4 H (7-13) mEq/L BUN 20 H (7-18) mg/dL Creatinine 1.20 (0.70-1.30) mg/dL Est Cr Clr Drug Dosing 64.26 mL/min Estimated GFR (MDRD) > 60 Glucose 121 H (70-99) mg/dL Calcium 8.1 L (8.5-10.1) mg/dL Urine Color (YELLOW) Urine Appearance (CLEAR) Urine pH (5.0-9.0) Ur Specific [place] (1.005-1.030) Urine Protein (NEGATIVE) Urine Glucose (UA) (NEGATIVE) Urine Ketones (NEGATIVE) Urine Occult Blood (NEGATIVE) Urine Nitrite (NEGATIVE) Urine Bilirubin (NEGATIVE) Urine Urobilinogen (0.2-1.0) mg/dL Ur Leukocyte Esterase (NEGATIVE) Urine RBC (0-5) /HPF Urine WBC (0-5/HPF) /HPF Ur Epithelial Cells (NOT SEEN) /HPF Urine Bacteria (0-FEW/HPF) /HPF Urine Mucus (NOT SEEN) /LPF Meds: Medications Generic Name Dose Route Start Last Admin Trade Name Freq PRN Reason Stop Dose Admin Sodium Chloride 10 ml 11/05/21 14:41 11/05/21 15:39 Sodium Chloride 0.9% 10 Ml Syringe FLUSH 10 ml ASDIRECTED PRN Administration Keep Vein Open Discontinued Medications Generic Name Dose Route Start Last Admin Trade Name Freq PRN Reason Stop Dose Admin Cephalexin 500 mg 11/05/21 14:08 Cephalexin 500 Mg Cap PO 11/05/21 14:09 ONETIME ONE Ciprofloxacin 500 mg 11/05/21 14:09 11/05/21 15:10 Ciprofloxacin 500 Mg Tab PO 11/05/21 14:10 500 mg ONETIME ONE Administration Ceftriaxone Sodium 2 gm/ 100 mls @ 200 mls/hr 11/05/21 14:41 11/05/21 15:37 Sodium Chloride IV 11/05/21 15:10 200 mls/hr ONETIME ONE Administration Phytonadione 5 mg 11/05/21 14:42 11/05/21 15:10 Phytonadione 5 Mg Tab PO 11/05/21 14:43 5 mg ONETIME ONE Administration Departure - Departure Time of Disposition: 16:25 Disposition: Home, Self-Care 01 Condition: Fair Clinical Impression: Supratherapeutic international normalized ratio (INR), Friction injury to skin Urinary tract infection Qualifiers: Urinary tract infection type: acute cystitis Hematuria presence: with hematuria Qualified Code(s): N30.01 - Acute cystitis with hematuria - Discharge Information *PRESCRIPTION DRUG MONITORING PROGRAM REVIEWED*: Not Applicable *COPY OF PRESCRIPTION DRUG MONITORING REPORT IN PATIENT JENNIFER: Not Applicable Instructions: Urinary Tract Infection, Adult Forms: ED Department Discharge Additional Instructions: Rx: Cephalexin 500mg Rx: Cipro 500mg Do not take your Coumadin (Warfarin) dose today. Resume regular dose tomorrow. Follow up in clinic in 2 days for recheck INR and urine. Sepsis Event Note (ED) - Evaluation Sepsis Screening Result: No Definite Risk - Focused Exam Vital Signs: Vital Signs Temp Pulse Resp BP Pulse Ox 11/05/21 12:25 98.3 F 95 22 H 138/56 L 91 L - My Orders Last 24 Hours: My Active Orders 11/05/21 13:00 CULTURE URINE [RM] Stat 11/05/21 14:04 Wound Care [RC] ONETIME 11/05/21 14:41 Peripheral IV Care [RC] . DIRECTED Sodium Chloride 0.9% [Saline Flush] 10 ml FLUSH ASDIRECTED PRN Peripheral IV Insertion Adult [OM.PC] Stat - Assessment/Plan Last 24 Hours: My Active Orders 11/05/21 13:00 CULTURE URINE [RM] Stat 11/05/21 14:04 Wound Care [RC] ONETIME 11/05/21 14:41 Peripheral IV Care [RC] . DIRECTED Sodium Chloride 0.9% [Saline Flush] 10 ml FLUSH ASDIRECTED PRN Peripheral IV Insertion Adult [OM.PC] Stat
[2021-11-05] MEDS ORDERED: Cephalexin 500 MG Cap PO ONE (14:08)
[2021-11-05] MEDS ORDERED: Ciprofloxacin 500 MG Tab PO ONE (14:09)
[2021-11-05 14:41] LABS: ANION GAP 15.4 mEq/L (7-13); CHLORIDE,CL 102 mmol/L (98-107); SODIUM,NA 141 mmol/L (136-145)
[2021-11-05] MEDS ORDERED: Sodium Chloride 0.9% 10 ML Syringe FLUSH PRN (14:41)
[2021-11-05] MEDS ORDERED: cefTRIAXone 2 GM in Sodium Chloride 0.9% 100 ML IV ONE (14:41)
[2021-11-05] MEDS ORDERED: Phytonadione 5 MG Tab PO ONE (14:42)
== END 2021-11-05 16:26 | disposition home or self-care (01) ==
LOC: DL.ED 12:05
DX: N30.01 Acute cystitis with hematuria (principal); S89.91XA Unspecified injury of right lower leg, initial encounter; S89.92XA Unspecified injury of left lower leg, initial encounter; R79.1 Abnormal coagulation profile; I10 Essential (primary) hypertension; E66.9 Obesity, unspecified; Z88.1 Allergy status to other antibiotic agents; Z79.01 Long term (current) use of anticoagulants; Z79.899 Other long term (current) drug therapy; Z68.45 Body mass index [BMI] 70 or greater, adult
CPT/HCPCS: 36415; 80048; 81001; 85025; 85610; 87086; 87088; 87186; 96365; 99284; A9270; J0696